=== PATIENT | male | born 1980 | race Caucasian/White ===

== ENCOUNTER 2019-07-13 15:57 | Emergency (ER) | payer MEDICAID, OTHER ==
[~2019-07-13] VITALS: Ht 180 cm; Wt 68.0 kg
[2019-07-13] MEDS ORDERED: NS IV 1000 ML 1,000 ML IV SCH (17:30)
[2019-07-13] MEDS ORDERED: RT-ALBUTEROL/IPRATROPIUM 3 ML (DUONEB) VIAL INH ONE (17:30)
--- NOTE | 2019-07-13 17:30 | ED Cough/URI ---
General Chief Complaint: Cough/Cold/Flu Symptoms Stated Complaint: COUGH / CONGESTION / BACK PAIN Nursing Triage Note: THE PT IS AMBULATORY TO THE ROOM WITHOUT DIFFICULTY. NO DISTRESS IS SEEN ON ARRIVAL. LOC IS NORMAL FOR THE PT. THE PT C/O OF COUGH AND CHEST CONGESTION. Sepsis Screen: No Definite Risk Source: patient Exam Limitations: no limitations History of Present Illness Date Seen by Provider: Jul 13, 2019 Time Seen by Provider: 17:29 Initial Comments Cough congestion and back pain for a couple of days. Type I diabetic wearing an insulin pump. Timing/Duration: week, getting worse Severity/Quality: dry cough Prior Episodes/Possible Cause: occasional episodes Modifying Factors: Improves With Coughing Associated Symptoms: denies symptoms Allergies and Home Medications Allergies Coded Allergies: No Known Drug Allergies (Unverified , 07/13/19) Patient Home Medication List Home Medication List Reviewed: Yes Review of Systems Review of Systems Constitutional: see HPI EENTM: see HPI Respiratory: see HPI, cough Genitourinary: no symptoms reported Musculoskeletal: no symptoms reported Skin: no symptoms reported Psychiatric/Neurological: No Symptoms Reported Past Orcbzus-Cqftki-Acvwsi Hx Patient Social History Recent Foreign Travel: No Contact w/Someone Who Travel: No Recent Infectious Disease Expo: No Recent Hopitalizations: No Physical Abuse: No Sexual Abuse: No Mistreated: No Fear: No Seasonal Allergies Seasonal Allergies: No Past Medical History Surgeries: No Physical Exam Vital Signs - First Documented 07/13/19 07/13/19 16:15 18:05 Temp 36.8 Pulse 117 Resp 16 B/P (MAP) 175/105 (128) Pulse Ox 99 O2 Delivery Room Air Capillary Refill : Less Than 3 Seconds Height: '" Weight: lbs. oz. kg; 20.00 BMI Method: General Appearance: WD/WN, no apparent distress Eyes: Bilateral Eye Normal Inspection, Bilateral Eye PERRL, Bilateral Eye EOMI HEENT: PERRL/EOMI, normal ENT inspection Respiratory: no respiratory distress, no accessory muscle use, other (crackles posterior left base, wheezing anterior right upper lobe) Cardiovascular: no murmur, tachycardia Gastrointestinal: normal bowel sounds, non tender, soft Neurologic/Psychiatric: alert, normal mood/affect, oriented x 3 Skin: normal color, warm/dry Progress/Results/Core Measures Suspected Sepsis Recent Fever Within 48 Hours: No Infection Criteria Present: None New/Unexplained Altered Menta: No Sepsis Screen: No Definite Risk SIRS Temperature: Pulse: 117 Respiratory Rate: 16 Laboratory Tests 07/13/19 17:22: White Blood Count 8.6 Blood Pressure 175 /105 Mean: 128 Laboratory Tests 07/13/19 17:22: Creatinine 2.84H, Platelet Count 265, Total Bilirubin 0.4 Results/Orders Lab Results Laboratory Tests Test 07/13/19 17:22 Range/Units White Blood Count 8.6 4.3-11.0 10^3/uL Red Blood Count 3.27 L 4.35-5.85 10^6/uL Hemoglobin 9.2 L 13.3-17.7 G/DL Hematocrit 28 L 40-54 % Mean Corpuscular Volume 86 80-99 FL Mean Corpuscular Hemoglobin 28 25-34 PG Mean Corpuscular Hemoglobin Concent 33 32-36 G/DL Red Cell Distribution Width 14.2 10.0-14.5 % Platelet Count 265 130-400 10^3/uL Mean Platelet Volume 9.8 7.4-10.4 FL Neutrophils (%) (Auto) 70 42-75 % Lymphocytes (%) (Auto) 20 12-44 % Monocytes (%) (Auto) 9 0-12 % Eosinophils (%) (Auto) 1 0-10 % Basophils (%) (Auto) 1 0-10 % Neutrophils # (Auto) 6.0 1.8-7.8 X 10^3 Lymphocytes # (Auto) 1.7 1.0-4.0 X 10^3 Monocytes # (Auto) 0.7 0.0-1.0 X 10^3 Eosinophils # (Auto) 0.1 0.0-0.3 10^3/uL Basophils # (Auto) 0.0 0.0-0.1 10^3/uL Sodium Level 137 135-145 MMOL/L Potassium Level 5.4 H 3.6-5.0 MMOL/L Chloride Level 109 H 98-107 MMOL/L Carbon Dioxide Level 18 L 21-32 MMOL/L Anion Gap 10 5-14 MMOL/L Blood Urea Nitrogen 31 H 7-18 MG/DL Creatinine 2.84 H 0.60-1.30 MG/DL Estimat Glomerular Filtration Rate 25 BUN/Creatinine Ratio 11 Glucose Level 48 *L 70-105 MG/DL Calcium Level 8.5 8.5-10.1 MG/DL Corrected Calcium 9.3 8.5-10.1 MG/DL Total Bilirubin 0.4 0.1-1.0 MG/DL Aspartate Amino Transf (AST/SGOT) 35 H 5-34 U/L Alanine Aminotransferase (ALT/SGPT) 40 0-55 U/L Alkaline Phosphatase 86 40-136 U/L Total Protein 5.9 L 6.4-8.2 GM/DL Albumin 3.0 L 3.2-4.5 GM/DL My Orders Orders - ROSI ROGERS GI PHYSICIAN Cbc With Automated Diff (07/13/19 17:24) Comprehensive Metabolic Panel (07/13/19 17:24) Ed Iv/Invasive Line Start (07/13/19 17:24) Chest Pa/Lat (2 View) (07/13/19 17:24) Albuterol/Ipra Inhalation Soln (Duoneb I (07/13/19 17:30) Svn Small Volume Nebulizer (07/13/19 17:24) Ns Iv 1000 Ml (Sodium Chloride 0.9%) (07/13/19 17:30) Cho 60g/M 1snack (16-2000 [place]) (07/14/19 Lunch) Rocephin 1 Gm Iv (1x Dose) (07/13/19 18:30) Medications Given in ED Current Medications Medications Dose Ordered Sig/Meng Route Start Time Stop Time Status Last Admin Dose Admin Albuterol/ Ipratropium 3 ml ONCE ONCE INH 07/13/19 17:30 07/13/19 17:31 DC 07/13/19 18:04 3 ML Vital Signs/I&O 07/13/19 07/13/19 16:15 18:05 Temp 36.8 Pulse 117 Resp 16 B/P (MAP) 175/105 (128) Pulse Ox 99 O2 Delivery Room Air Capillary Refill : Less Than 3 Seconds Blood Pressure Mean: 128 POS Departure Impression Primary Impression: Pneumonia Qualified Codes: J18.1 - Lobar pneumonia, unspecified organism Disposition: HOME, SELF-CARE Condition: Stable Departure-Patient Inst. Decision time for Depature: 18:26 Referrals: [facility] (PCP/Family) Primary Care Physician Patient Instructions: Pneumonia, Adult (DC) Add. Discharge Instructions: 1. Antibiotics as directed 2. Return to ER for any concerns 3. All discharge instructions reviewed with patient and/or family. Voiced und erstanding. Scripts Albuterol Sulfate (PROAIR HFA) 1 Puff Puff 2 PUFF IH Q4H PRN for WEAKNESS, #1 PUFF 1 PUFF = 90 MCG Prov: ROSI ROGERS APRN 07/13/19 Azithromycin (Azithromycin) 250 Mg Tablet 250 MG PO UD, #6 TAB TAKE 2 TABLETS ON DAY ONE THEN TAKE 1 TABLET DAILY FOR FOUR MORE DAYS Prov: ROSI ROGERS APRN 07/13/19 Amoxicillin/Potassium Clav (Augmentin 875-125 Tablet) 1 Each Tablet 1 EACH PO BID, #14 TAB 0 Refills Prov: ROSI ROGERS APRN 07/13/19 ROSI ROGERS APRN Jul 13, 2019 17:30 POS
[2019-07-13 17:31] LABS: BASOPHILS % (AUTO) 1 % (0-10); EOSINOPHILS # (AUTO) 0.1 10^3/uL (0.0-0.3); EOSINOPHILS % (AUTO) 1 % (0-10); HEMATOCRIT 28 % (40-54); HEMOGLOBIN 9.2 G/DL (13.3-17.7); LYMPHOCYTES # (AUTO) 1.7 X 10^3 (1.0-4.0); LYMPHOCYTES % (AUTO) 20 % (12-44); MEAN CORPUSCULAR HEMOGLOBIN 28 PG (25-34); MEAN CORPUSCULAR HGB CONC 33 G/DL (32-36); MEAN CORPUSCULAR VOLUME 86 FL (80-99); MEAN PLATELET VOLUME 9.8 FL (7.4-10.4); MONOCYTES # (AUTO) 0.7 X 10^3 (0.0-1.0); MONOCYTES % (AUTO) 9 % (0-12); NEUTROPHILS % (AUTO) 70 % (42-75); PLATELET COUNT 265 10^3/uL (130-400); RED CELL DISTRIBUTION WIDTH 14.2 % (10.0-14.5); WHITE BLOOD COUNT 8.6 10^3/uL (4.3-11.0)
[2019-07-13 17:48] LABS: BILIRUBIN,TOTAL 0.4 MG/DL (0.1-1.0); CALCIUM 8.5 MG/DL (8.5-10.1); CREATININE SERUM 2.84 MG/DL (0.60-1.30); POTASSIUM 5.4 MMOL/L (3.6-5.0); TOTAL PROTEIN 5.9 GM/DL (6.4-8.2)
--- NOTE | 2019-07-13 18:20 | Diagnostic Imaging Report ---
INDICATION: Cough and congestion. PA and lateral chest. Heart size and pulmonary vascularity are normal. Lungs are clear. There are no effusions or pneumothoraces. IMPRESSION: Negative chest. Dictated by: Dictated on workstation # [id number]
[2019-07-13] MEDS ORDERED: AMOX-358 PO (18:27)
[2019-07-13] MEDS ORDERED: AZIT250T12 PO (18:27)
[2019-07-13] MEDS ORDERED: RT-ALBUINH IH (18:27)
[2019-07-13] MEDS ORDERED: cefTRIAXone FOR IV USE 1,000 MG in WATER (STERILE) FOR INJECTION 10 ML IV ONE (18:30)
[2019-07-13] MEDS ORDERED: meTOprolol TARTRATE 25 MG (LOPRESSOR) TABLET PO ONE (20:15)
[2019-07-13 20:20] VITALS: BP 175/110
--- NOTE | 2019-07-13 20:21 | NUR ---
[address] IS INFORMED.
--- OUTSIDE RECORDS SUMMARY | 2019-08-08 00:25 | XMS REPORT ---
Author Author Jose LLOYD Organization [facility] Address [address] [place] [address] Care Team Providers Care Hydraulic Barker Operator Name Role Phone ISREAL LLOYD Unavailable PROBLEMS Type Condition ICD9-CM Code QOS56-AZ Code Onset Dates Condition S tatus SNOMED Code Problem High risk sexual behavior Z72.51 Acti ve 526708811 Problem Tinea versicolor B36.0 Active 564 92119 Problem Other specified diabetes mellitus without complications E13.9 Active 521459503 Problem Erectile dysfunction, unspecified erectile dysfunction typ e N52.9 Active 305407490 Problem Hyperlipidemia, unspecified hyperlipidemia type E7 8.5 Active 69942528 ALLERGIES No Information ENCOUNTERS Encounter Location Date Diagnosis [facility] [id number] [place] [phone] Oct, [facility] [address] [id number] [address] [place] [phone] Sep, [facility] [address] [id number] [address] [place] [phone] Aug, [facility] [id number] [place] [phone] Aug, [facility] [address] [id number] [address] [place] [phone] Jul, [facility] [address] [id number] [address] [place] [phone] Jul, [facility] [address] [id number] [address] [place] [phone] Jun, [facility] [address] [id number] [address] [place] [phone] Jun, Tinea versicolor B36.0 ; Enc ounter for immunization Z23 ; Other specified diabetes mellitus without complications E13.9 and High risk sexual behavior Z72.51 [facility] [address] [id number] [address] [place] [phone] May, [facility] [address] [id number] [address] [place] [phone] Apr, [facility] [address] [id number] [address] [place] [phone] Apr, [facility] [address] [id number] [address] [place] [phone] Apr, [facility] [address] [id number] [address] [place] [phone] Apr, [facility] [address] [id number] [address] [place] [phone] Mar, [facility] [address] [id number] [address] [place] [phone] Mar, [facility] [address] [id number] [address] [place] [phone] Mar, Tinea versicolor B36.0 ; Oth er specified diabetes mellitus without complications E13.9 and Acute pain of right shoulder M25.511 [facility] [address] [id number] [address] [place] [phone] Mar, [facility] [address] [id number] [address] [place] [phone] Mar, [facility] [address] [id number] [address] [place] [phone] Feb, [facility] [address] [id number] [address] [place] [phone] Feb, [facility] [address] [id number] [address] [place] [phone] Feb, [facility] [address] [id number] [address] [place] [phone] Feb, [facility] [address] [facility] [id number] [address] [place] [phone] Feb, [facility] [address] [facility] [id number] [address] [place] [phone] Jan, Other specified diabetes myrna litus without complications E13.9 ; Erectile dysfunction, unspecified erectile dysfunction type N52.9 ; Hyperlipidemia, unspecified hyperlipidemia type E78.5 ; Tinea versicolor B36.0 and High risk sexual behavior Z72.51 [facility] [address] [facility] [id number] [address] [place] [phone] Jan, IMMUNIZATIONS No Known Immunizations SOCIAL HISTORY Never Assessed REASON FOR VISIT [employer] Delivery date PLAN OF CARE VITAL SIGNS MEDICATIONS Unknown Medications RESULTS No Results PROCEDURES No Known procedures INSTRUCTIONS MEDICATIONS ADMINISTERED No Known Medications MEDICAL (GENERAL) HISTORY Type Description Date Medical History diabetes mellitus Medical History hyperlipidemia Medical History erectile dysfunction Medical History anxiety attacks Medical History depression Surgical History tonsillectomy and adenoidectomy 1990 Surgical History wisdom teeth extraction Surgical History Lumpectomy on Tongue Surgical History mole removal -back Hospitalization History Flu- Hospitalized at [facility] in [place], [place]
--- OUTSIDE RECORDS SUMMARY | 2019-08-08 00:25 | XMS REPORT ---
Author Author Jose LLOYD Organization [facility] Address [address] [place] [address] Care Team Providers Care Aircraft Armament Mechanic Name Role Phone ISRAEL LLOYD Unavailable PROBLEMS Type Condition ICD9-CM Code MFA62-EI Code Onset Dates Condition S tatus SNOMED Code Problem High risk sexual behavior Z72.51 Acti ve 017248394 Problem Tinea versicolor B36.0 Active 564 48739 Problem Other specified diabetes mellitus without complications E13.9 Active 121705058 Problem Erectile dysfunction, unspecified erectile dysfunction typ e N52.9 Active 691423408 Problem Hyperlipidemia, unspecified hyperlipidemia type E7 8.5 Active 72602214 ALLERGIES No Information ENCOUNTERS Encounter Location Date Diagnosis [facility] [address] [id number] [address] [place] [phone] Oct, [facility] [address] [id number] [address] [place] [phone] Sep, [facility] [address] [id number] [address] [place] [phone] Aug, [facility] [address] [place] [phone] Aug, [facility] [address] [id number] [address] [place] [phone] Jul, [facility] [address] [id number] [address] [place] [phone] Jul, [facility] [address] [id number] [address] [place] [phone] Jun, [facility] [address] [id number] [address] [place] [phone] Jun, Tinea versicolor B36.0 ; Enc ounter for immunization Z23 ; Other specified diabetes mellitus without complications E13.9 and High risk sexual behavior Z72.51 [facility] [address] [id number] [address] [place] [phone] May, [facility] [address] [id number] [address] [place] [phone] Apr, [facility] [address] [id number] [address] [place] [phone] Apr, [facility] [address] [id number] [address] [place] [phone] Apr, [facility] [address] [id number] [address] [place] [phone] Apr, [facility] [address] [id number] [address] [place] [phone] Mar, [facility] [address] [id number] [address] [place] [phone] Mar, [facility] [address] [id number] [address] [place] [phone] Mar, Tinea versicolor B36.0 ; Oth er specified diabetes mellitus without complications E13.9 and Acute pain of right shoulder M25.511 [facility] [address] [id number] [address] [place] [phone] Mar, [facility] [address] [id number] [address] [place] [phone] Mar, [facility] [address] [id number] [address] [place] [phone] Feb, [facility] [address] [id number] [address] [place] [phone] Feb, [facility] [address] [id number] [address] [place] [phone] Feb, [facility] [address] [id number] [address] [place] [phone] Feb, [facility] [address] [facility] [id number] [address] [place] [phone] Feb, [facility] [address] [facility] [id number] [address] [place] [phone] Jan, Other specified diabetes myrna litus without complications E13.9 ; Erectile dysfunction, unspecified erectile dysfunction type N52.9 ; Hyperlipidemia, unspecified hyperlipidemia type E78.5 ; Tinea versicolor B36.0 and High risk sexual behavior Z72.51 [facility] [address] [facility] [id number] [address] [place] [phone] Jan, IMMUNIZATIONS No Known Immunizations SOCIAL HISTORY Never Assessed REASON FOR VISIT eye exam PLAN OF CARE VITAL SIGNS MEDICATIONS Unknown [...] removal -back Hospitalization History Flu- Hospitalized at [facility] in [place], [place]
--- OUTSIDE RECORDS SUMMARY | 2019-08-08 00:25 | XMS REPORT ---
Author Author Jose LLOYD Organization [facility] Address [address] [place] [address] Care Team Providers Care Self Sealing Fuel Tank Builder Name Role Phone ISRAEL LLOYD Unavailable PROBLEMS Type Condition ICD9-CM Code JNM56-KF Code Onset Dates Condition S tatus SNOMED Code Problem High risk sexual behavior Z72.51 Acti ve 917019589 Problem Tinea versicolor B36.0 Active 564 91584 Problem Other specified diabetes mellitus without complications E13.9 Active 393320768 Problem Erectile dysfunction, unspecified erectile dysfunction typ e N52.9 Active 210271042 Problem Hyperlipidemia, unspecified hyperlipidemia type E7 8.5 Active 31973678 ALLERGIES No Information ENCOUNTERS Encounter Location Date Diagnosis [facility] [address] [id number] [address] [place] [phone] Oct, [facility] [address] [id number] [address] [place] [phone] Sep, [facility] [address] [id number] [address] [place] [phone] Aug, [facility] [address] [id number] [address] [place] [phone] Aug, [facility] [address] [id number] [address] [place] [phone] Jul, [facility] [address] [id number] [address] [place] [phone] Jul, [facility] [address] [id number] [address] [place] [phone] Jun, [facility] [address] [id number] [address] [place] [phone] Jun, Tinea versicolor B36.0 ; Enc ounter for immunization Z23 ; Other specified diabetes mellitus without complications E13.9 and High risk sexual behavior Z72.51 [facility] [address] [id number] [address] [place] [phone] May, [facility] [address] [id number] [address] [place] [phone] Apr, [facility] [address] [id number] [address] [place] [phone] Apr, [facility] [address] [id number] [address] [place] [phone] Apr, [facility] [address] [id number] [address] [place] [phone] Apr, [facility] [address] [id number] [address] [place] [phone] Mar, [facility] [address] [id number] [address] [place] [phone] Mar, [facility] [address] [id number] [address] [place] [phone] Mar, Tinea versicolor B36.0 ; Oth er specified diabetes mellitus without complications E13.9 and Acute pain of right shoulder M25.511 [facility] [address] [id number] [address] [place] [phone] Mar, [facility] [address] [id number] [address] [place] [phone] Mar, [facility] [address] [id number] [address] [place] [phone] Feb, [facility] [address] [id number] [address] [place] [phone] Feb, [facility] [address] [id number] [address] [place] [phone] Feb, [facility] [address] [id number] [address] [place] [phone] Feb, [facility] [address] [facility] [id number] [address] [place] [phone] Feb, [facility] [address] [facility] [id number] [address] [place] [phone] Jan, Other specified diabetes myrna litus without complications E13.9 ; Erectile dysfunction, unspecified erectile dysfunction type N52.9 ; Hyperlipidemia, unspecified hyperlipidemia type E78.5 ; Tinea versicolor B36.0 and High risk sexual behavior Z72.51 [facility] [address] [facility] [id number] [address] [place] [phone] Jan, IMMUNIZATIONS No Known Immunizations SOCIAL HISTORY Never Assessed REASON FOR VISIT pt requests return call PLAN OF CARE VITAL SIGNS MEDICATIONS Unknown [...] Hospitalization History Flu- Hospitalized at [facility] in [place], [place]
--- OUTSIDE RECORDS SUMMARY | 2019-08-08 00:25 | XMS REPORT ---
Author Author Jsoe LLOYD Organization [facility] Address [address] [place] [address] Care Team Providers Care Inspector Assembly Name Role Phone ISRAEL LLOYD Unavailable PROBLEMS Type Condition ICD9-CM Code [id number]-HT Code Onset Dates Condition S tatus SNOMED Code Problem High risk sexual behavior Z72.51 Acti ve 757987859 Problem Tinea versicolor B36.0 Active 564 69681 Problem Other specified diabetes mellitus without complications E13.9 Active 440614818 Problem Erectile dysfunction, unspecified erectile dysfunction typ e N52.9 Active 726772363 Problem Hyperlipidemia, unspecified hyperlipidemia type E7 8.5 Active 52215899 ALLERGIES No Information ENCOUNTERS Encounter Location Date Diagnosis [facility] [address] [id number] [address] [place] [phone] Oct, [facility] [address] [id number] [address] [place] [phone] Sep, [facility] [address] [id number] [address] [place] [phone] Aug, [facility] [address] [id number] [address] [place] [phone] Aug, [facility] [address] [id number] [address] [place] [phone] Jul, [facility] [address] [id number] [address] [place] [phone] Jul, [facility] [address] [id number] [address] [place] [phone] Jun, [facility] [address] [id number] [address] [place] [address] Jun, Tinea versicolor B36.0 ; Enc ounter for immunization Z23 ; Other specified diabetes mellitus without complications E13.9 and High risk sexual behavior Z72.51 [facility] [address] [id number] [address] [place] [phone] May, [facility] [address] [id number] [address] [place] [phone] Apr, [facility] [address] [id number] [address] [place] [phone] Apr, [facility] [address] [id number] [address] [place] [phone] Apr, [facility] [address] [id number] [address] [place] [phone] Apr, [facility] [address] [id number] [address] [place] [phone] Mar, [facility] [address] [id number] [address] [place] [phone] Mar, [facility] [address] [id number] [address] [place] [phone] Mar, Tinea versicolor B36.0 ; Oth er specified diabetes mellitus without complications E13.9 and Acute pain of right shoulder M25.511 [facility] [address] [id number] [address] [place] [address] Mar, [facility] [address] [id number] [address] [place] [phone] Mar, [facility] [address] [id number] [address] [place] [phone] Feb, [facility] [address] [id number] [address] [place] [phone] Feb, [facility] [address] [id number] [address] [place] [phone] Feb, [facility] [address] [id number] [address] [place] [phone] Feb, [facility] [address] [facility] [id number] [address] [place] [phone] Feb, [facility] [address] [facility] [id number] [address] [place] [phone] Jan, Other specified diabetes myrna litus without complications E13.9 ; Erectile dysfunction, unspecified erectile dysfunction type N52.9 ; Hyperlipidemia, unspecified hyperlipidemia type E78.5 ; Tinea versicolor B36.0 and High risk sexual behavior Z72.51 [facility] [address] [facility] [id number] [address] [place] [phone] Jan, IMMUNIZATIONS No Known Immunizations SOCIAL HISTORY Never Assessed REASON FOR VISIT Truvada rx PLAN OF CARE VITAL SIGNS MEDICATIONS Unknown [...] Hospitalization History Flu- Hospitalized at [facility] in [place], [place]
--- OUTSIDE RECORDS SUMMARY | 2019-08-08 00:25 | XMS REPORT ---
Author Author Jose LLOYD Organization [facility] Address [address] [place] [address] Care Team Providers Care Operations Research Director Name Role Phone ISRAEL LLOYD Unavailable PROBLEMS Type Condition ICD9-CM Code [id number]-RR Code Onset Dates Condition S tatus SNOMED Code Problem High risk sexual behavior Z72.51 Acti ve [id number] Problem Tinea versicolor B36.0 Active 564 51347 Problem Other specified diabetes mellitus without complications E13.9 Active 097338678 Problem Erectile dysfunction, unspecified erectile dysfunction typ e N52.9 Active 788601119 Problem Hyperlipidemia, unspecified hyperlipidemia type E7 8.5 Active 31347635 ALLERGIES No Information ENCOUNTERS Encounter Location Date Diagnosis [facility] [address] [id number] [address] [place] [phone] Oct, [facility] [address] [id number] [address] [place] [address] Sep, [facility] [address] [id number] [address] [place] [address] Aug, [facility] [address] [place] [address] Aug, [facility] [address] [place] [address] Jul, [facility] [address] [id number] [address] [place] [address] Jul, [facility] [address] [id number] [address] [place] [address] Jun, [facility] [address] [id number] [address] [place] [address] Jun, Tinea versicolor B36.0 ; Enc ounter for immunization Z23 ; Other specified diabetes mellitus without complications E13.9 and High risk sexual behavior Z72.51 [facility] [address] [id number] [address] [place] [address] May, [facility] [address] [id number] [address] [place] [address] Apr, [facility] [address] [id number] [address] [place] [address] Apr, [facility] [address] [id number] [address] [place] [phone] Apr, [facility] [address] [id number] [address] [place] [address] Apr, [facility] [address] [id number] [address] [place] [phone] Mar, [facility] [address] [id number] [address] [place] [address] Mar, [facility] [address] [id number] [address] [place] [address] Mar, Tinea versicolor B36.0 ; Oth er specified diabetes mellitus without complications E13.9 and Acute pain of right shoulder M25.511 [facility] [address] [id number] [address] [place] [address] Mar, [facility] [address] [id number] [address] [place] [address] Mar, [facility] [address] [id number] [address] [place] [address] Feb, [facility] [address] [id number] [address] [place] [address] Feb, [facility] [address] [id number] [address] [place] [address] Feb, [facility] [address] [id number] [address] [place] [address] Feb, [facility] [address] [facility] [id number] [address] [place] [address] Feb, [facility] [address] [facility] [id number] [address] [place] [address] Jan, Other specified diabetes myrna litus without complications E13.9 ; Erectile dysfunction, unspecified erectile dysfunction type N52.9 ; Hyperlipidemia, unspecified hyperlipidemia type E78.5 ; Tinea versicolor B36.0 and High risk sexual behavior Z72.51 [facility] [address] [facility] [id number] [address] [place] [address] Jan, IMMUNIZATIONS No Known Immunizations SOCIAL HISTORY Never Assessed REASON FOR VISIT PALS PLAN OF CARE VITAL SIGNS MEDICATIONS Medication Instructions Dosage Frequency Start Date End Date Duration S ana laura Quiñonez SoloStar 300 UNIT/ML Subcutaneous per sliding scale 45-50 units 90 days Active NovoLog Flexpen 100 UNIT/ML Subcutaneous per sliding scale 10-60 units per day 90 days Active RESULTS No Results PROCEDURES No Known procedures INSTRUCTIONS MEDICATIONS ADMINISTERED No Known Medications MEDICAL (GENERAL) HISTORY Type Description Date Medical History diabetes mellitus Medical History hyperlipidemia Medical History erectile dysfunction Medical History anxiety attacks Medical History depression Surgical History tonsillectomy and adenoidectomy 1990 Surgical History wisdom teeth extraction Surgical History Lumpectomy on Tongue Surgical History mole removal -back Hospitalization History Flu- Hospitalized at [facility] in [place], [place]
--- OUTSIDE RECORDS SUMMARY | 2019-08-08 00:25 | XMS REPORT ---
Author Author Jose LLOYD Organization [facility] Address [address] [place] [address] Care Team Providers Care Fire Equipment Inspector Helper Name Role Phone ISRAEL LLOYD Unavailable PROBLEMS Type Condition ICD9-CM Code NTE16-EV Code Onset Dates Condition S tatus SNOMED Code Problem High risk sexual behavior Z72.51 Acti ve 732607306 Problem Tinea versicolor B36.0 Active 564 20109 Problem Other specified diabetes mellitus without complications E13.9 Active 694911636 Problem Erectile dysfunction, unspecified erectile dysfunction typ e N52.9 Active 373915118 Problem Hyperlipidemia, unspecified hyperlipidemia type E7 8.5 Active 14700632 ALLERGIES No Information ENCOUNTERS Encounter Location Date Diagnosis [facility] [address] [id number] [address] [place] [phone] Oct, [facility] [address] [id number] [address] [place] [phone] Sep, [facility] [address] [id number] [address] [place] [phone] Aug, [facility] [address] [id number] [address] [place] [phone] Aug, [facility] [address] [id number] [address] [place] [phone] Jul, [facility] [address] [id number] [address] [place] [place] [address] Jul, [facility] [address] [id number] [address] [place] [phone] Jun, [facility] [address] [id number] [address] [place] [address] Jun, Tinea versicolor B36.0 ; Enc ounter for immunization Z23 ; Other specified diabetes mellitus without complications E13.9 and High risk sexual behavior Z72.51 [facility] [address] [id number] [address] [place] [address] May, [facility] [address] [id number] [address] [place] [place] [phone] Apr, [facility] [address] [id number] [address] [place] [place] [phone] Apr, [facility] [address] [id number] [address] [place] [place] [phone] Apr, [facility] [address] [id number] [address] [place] [place] [phone] Apr, [facility] [address] [id number] [address] [place] [phone] Mar, [facility] [address] [id number] [address] [place] [phone] Mar, [facility] [address] [id number] [address] [place] [address] Mar, Tinea versicolor B36.0 ; Oth er specified diabetes mellitus without complications E13.9 and Acute pain of right shoulder M25.511 [facility] [address] [id number] [address] [place] [address] Mar, [facility] [address] [id number] [address] [place] [address] Mar, [facility] [address] [id number] [address] [place] [phone] Feb, [facility] [address] [id number] [address] [place] [place] [phone] Feb, [facility] [address] [id number] [address] [place] [place] [phone] Feb, [facility] [address] [id number] [address] [place] [phone] Feb, [facility] [address] [facility] [id number] [address] [place] [place] [address] Feb, [facility] [address] [facility] [id number] [address] [place] [address] Jan, Other specified diabetes myrna litus without complications E13.9 ; Erectile dysfunction, unspecified erectile dysfunction type N52.9 ; Hyperlipidemia, unspecified hyperlipidemia type E78.5 ; Tinea versicolor B36.0 and High risk sexual behavior Z72.51 [facility] [address] [facility] [id number] [address] [place] [phone] Jan, IMMUNIZATIONS No Known Immunizations SOCIAL HISTORY Never Assessed REASON FOR VISIT Pt cancel DM ed PLAN OF CARE VITAL SIGNS MEDICATIONS Unknown [...] removal -back Hospitalization History Flu- Hospitalized at [facility] in [place], [place]
--- OUTSIDE RECORDS SUMMARY | 2019-08-08 00:25 | XMS REPORT ---
Author Author Jose LLOYD Organization [facility] Address [address] [place] [address] Care Team Providers Care Health Education Director Name Role Phone ISRAEL LLOYD Unavailable PROBLEMS Type Condition ICD9-CM Code [id number] Code Onset Dates Condition S tatus SNOMED Code Problem High risk sexual behavior Z72.51 Acti ve 579242199 Problem Tinea versicolor B36.0 Active 564 08508 Problem Other specified diabetes mellitus without complications E13.9 Active 396438932 Problem Erectile dysfunction, unspecified erectile dysfunction typ e N52.9 Active 718632516 Problem Hyperlipidemia, unspecified hyperlipidemia type E7 8.5 Active 45487405 ALLERGIES No Information ENCOUNTERS Encounter Location Date Diagnosis [facility] [address] [id number] [address] [place] [phone] Oct, [facility] [address] [id number] [address] [place] [phone] Sep, [facility] [address] [id number] [address] [place] [phone] Aug, [facility] [address] [place] [phone] Aug, [facility] [address] [place] [phone] Jul, [facility] [address] [id number] [address] [place] [address] Jul, [facility] [address] [id number] [address] [place] [phone] Jun, [facility] [address] [id number] [address] [place] [phone] Jun, Tinea versicolor B36.0 ; Enc ounter for immunization Z23 ; Other specified diabetes mellitus without complications E13.9 and High risk sexual behavior Z72.51 [facility] [address] [id number] [address] [place] [address] May, [facility] [address] [id number] [address] [place] [phone] Apr, [facility] [address] [id number] [address] [place] [phone] Apr, [facility] [address] [id number] [address] [place] [phone] Apr, [facility] [address] [id number] [address] [place] [phone] Apr, [facility] [address] [id number] [address] [place] [phone] Mar, [facility] [address] [id number] [address] [place] [phone] Mar, [facility] [address] [id number] [address] [place] [phone] Mar, Tinea versicolor B36.0 ; Oth er specified diabetes mellitus without complications E13.9 and Acute pain of right shoulder M25.511 [facility] [address] [id number] [address] [place] [phone] Mar, [facility] [address] [id number] [address] [place] [phone] Mar, [facility] [address] [id number] [address] [place] [phone] Feb, [facility] [address] [id number] [address] [place] [phone] Feb, [facility] [address] [id number] [address] [place] [phone] Feb, [facility] [address] [id number] [address] [place] [phone] Feb, [facility] [address] [facility] [id number] [address] [place] [phone] Feb, [facility] [address] [facility] [id number] [address] [place] [phone] Jan, Other specified diabetes myrna litus without complications E13.9 ; Erectile dysfunction, unspecified erectile dysfunction type N52.9 ; Hyperlipidemia, unspecified hyperlipidemia type E78.5 ; Tinea versicolor B36.0 and High risk sexual behavior Z72.51 [facility] [address] [facility] [id number] [address] [place] [phone] Jan, IMMUNIZATIONS No Known Immunizations SOCIAL HISTORY Never Assessed REASON FOR VISIT PALS IN-[place] PLAN OF CARE VITAL SIGNS MEDICATIONS Unknown [...] removal -back Hospitalization History Flu- Hospitalized at [facility] in [place], [place]
--- OUTSIDE RECORDS SUMMARY | 2019-08-08 00:25 | XMS REPORT ---
Author Author Jose LLOYD Organization [facility] Address [address] [place] [address] Care Team Providers Care Pouch Making Machine Operator Name Role Phone ISRAEL LLOYD Unavailable PROBLEMS Type Condition ICD9-CM Code [id number] Code Onset Dates Condition S tatus SNOMED Code Problem High risk sexual behavior Z72.51 Acti ve 593919694 Problem Tinea versicolor B36.0 Active 564 39053 Problem Other specified diabetes mellitus without complications E13.9 Active 953357871 Problem Erectile dysfunction, unspecified erectile dysfunction typ e N52.9 Active 678342842 Problem Hyperlipidemia, unspecified hyperlipidemia type E7 8.5 Active 67170525 ALLERGIES No Information ENCOUNTERS Encounter Location Date Diagnosis [facility] [address] [id number] [address] [place] [phone] Oct, [facility] [address] [id number] [address] [place] [phone] Sep, [facility] [address] [id number] [address] [place] [phone] Aug, [facility] [address] [id number] [address] [place] [phone] Aug, [facility] [address] [id number] [address] [place] [phone] Jul, [facility] [address] [id number] [address] [place] [phone] Jul, [facility] [address] [id number] [address] [place] [phone] Jun, [facility] [address] [id number] [address] [place] [address] Jun, Tinea versicolor B36.0 ; Enc ounter for immunization Z23 ; Other specified diabetes mellitus without complications E13.9 and High risk sexual behavior Z72.51 [facility] [address] [id number] [address] [place] [address] May, [facility] [address] [id number] [address] [place] [phone] Apr, [facility] [address] [id number] [address] [place] [phone] Apr, [facility] [address] [id number] [address] [place] [phone] Apr, [facility] [address] [id number] [address] [place] [phone] Apr, [facility] [address] [id number] [address] [place] [phone] Mar, [facility] [address] [id number] [address] [place] [phone] Mar, [facility] [address] [id number] [address] [place] [phone] Mar, Tinea versicolor B36.0 ; Oth er specified diabetes mellitus without complications E13.9 and Acute pain of right shoulder M25.511 [facility] [address] [id number] [address] [place] [phone] Mar, [facility] [address] [id number] [address] [place] [phone] Mar, [facility] [address] [id number] [address] [place] [phone] Feb, [facility] [address] [id number] [address] [place] [phone] Feb, [facility] [address] [id number] [address] [place] [phone] Feb, [facility] [address] [id number] [address] [place] [phone] Feb, [facility] [address] [facility] [id number] [address] [place] [phone] Feb, [facility] [address] [facility] [id number] [address] [place] [phone] Jan, Other specified diabetes myrna litus without complications E13.9 ; Erectile dysfunction, unspecified erectile dysfunction type N52.9 ; Hyperlipidemia, unspecified hyperlipidemia type E78.5 ; Tinea versicolor B36.0 and High risk sexual behavior Z72.51 [facility] [address] [facility] [id number] [address] [place] [phone] Jan, IMMUNIZATIONS No Known Immunizations SOCIAL HISTORY Never Assessed REASON FOR VISIT PALS PLAN OF CARE VITAL SIGNS MEDICATIONS Medication Instructions Dosage Frequency Start Date End Date Duration S tatus Truvada 200-300 MG Orally Once a day 1 tablet 24h Jan, 90 days Active RESULTS No Results PROCEDURES [...] removal -back Hospitalization History Flu- Hospitalized at [facility] in [place], [place]
--- OUTSIDE RECORDS SUMMARY | 2019-08-08 00:25 | XMS REPORT ---
Author Author Jose LLOYD Organization [facility] Address [address] [place] [address] Care Team Providers Care Sales Attendant Name Role Phone ISRAEL LLOYD Unavailable PROBLEMS Type Condition ICD9-CM Code RHV31-[id number] Code Onset Dates Condition S tatus SNOMED Code Problem High risk sexual behavior Z72.51 Acti ve 182110199 Problem Tinea versicolor B36.0 Active 564 03064 Problem Other specified diabetes mellitus without complications E13.9 Active 904869313 Problem Erectile dysfunction, unspecified erectile dysfunction typ e N52.9 Active 882678878 Problem Hyperlipidemia, unspecified hyperlipidemia type E7 8.5 Active [id number] ALLERGIES No Information ENCOUNTERS Encounter Location Date Diagnosis [facility] [address] [id number] [address] [place] [phone] Oct, [facility] [address] [id number] [address] [place] [address] Sep, [facility] [address] [id number] [address] [place] [phone] Aug, [facility] [address] [id number] [address] [place] [address] Aug, [facility] [address] [id number] [address] [place] [address] Jul, [facility] [address] [id number] [address] [place] [phone] Jul, [facility] [address] [id number] [address] [place] [phone] Jun, [facility] [address] [id number] [address] [place] [address] Jun, Tinea versicolor B36.0 ; Enc ounter for immunization Z23 ; Other specified diabetes mellitus without complications E13.9 and High risk sexual behavior Z72.51 [facility] [address] [id number] [address] [place] [id number] May, [facility] [address] [id number] [address] [place] [address] Apr, [facility] [address] [id number] [address] [place] [phone] Apr, [facility] [address] [id number] [address] [place] [phone] Apr, [facility] [address] [id number] [address] [place] [phone] Apr, [facility] [address] [id number] [address] [place] [phone] Mar, [facility] [address] [id number] [address] [place] [phone] Mar, [facility] [address] [id number] [address] [place] [phone] Mar, Tinea versicolor B36.0 ; Oth er specified diabetes mellitus without complications E13.9 and Acute pain of right shoulder M25.511 [facility] [address] [id number] [address] [place] [phone] Mar, [facility] [address] [id number] [address] [place] [phone] Mar, [facility] [address] [id number] [address] [place] [phone] Feb, [facility] [address] [id number] [address] [place] [phone] Feb, [facility] [address] [id number] [address] [place] [address] Feb, [facility] [address] [id number] [address] [place] [address] Feb, [facility] [address] [facility] [id number] [address] [place] [phone] Feb, [facility] [address] [facility] [id number] [address] [place] [address] Jan, Other specified diabetes myrna litus without complications E13.9 ; Erectile dysfunction, unspecified erectile dysfunction type N52.9 ; Hyperlipidemia, unspecified hyperlipidemia type E78.5 ; Tinea versicolor B36.0 and High risk sexual behavior Z72.51 [facility] [address] [facility] [id number] [address] [place] [phone] Jan, IMMUNIZATIONS No Known Immunizations SOCIAL HISTORY Never Assessed REASON FOR VISIT FYI only PLAN OF CARE VITAL SIGNS MEDICATIONS Unknown [...] Hospitalization History Flu- Hospitalized at [facility] in [place], [place]
--- OUTSIDE RECORDS SUMMARY | 2019-08-08 00:25 | XMS REPORT ---
Author Author Jose LLOYD Organization [facility] Address [address] [place] [address] Care Team Providers Care Classroom Monitor Name Role Phone ISRAEL LLOYD Unavailable PROBLEMS Type Condition ICD9-CM Code [id number] Code Onset Dates Condition S tatus SNOMED Code Problem High risk sexual behavior Z72.51 Acti ve 952232931 Problem Tinea versicolor B36.0 Active 564 78050 Problem Other specified diabetes mellitus without complications E13.9 Active 323284576 Problem Erectile dysfunction, unspecified erectile dysfunction typ e N52.9 Active 849669589 Problem Hyperlipidemia, unspecified hyperlipidemia type E7 8.5 Active [id number] ALLERGIES No Information ENCOUNTERS Encounter Location Date Diagnosis [facility] [address] [id number] [address] [place] [phone] Oct, [facility] [address] [id number] [address] [place] [phone] Sep, [facility] [address] [id number] [address] [place] [phone] Aug, [facility] [id number] [place] [phone] Aug, [facility] [address] [id number] [address] [place] [phone] Jul, [facility] [address] [id number] [address] [place] [phone] Jul, [facility] [address] [id number] [address] [place] [phone] Jun, [facility] [address] [id number] [address] [place] [phone] Jun, Tinea versicolor B36.0 ; Enc ounter for immunization Z23 ; Other specified diabetes mellitus without complications E13.9 and High risk sexual behavior Z72.51 [facility] [address] [id number] [address] [place] [phone] May, [facility] [address] [id number] [address] [place] [phone] Apr, [facility] [address] [id number] [address] [place] [phone] Apr, [facility] [address] [id number] [address] [place] [phone] Apr, [facility] [address] [id number] [address] [place] [phone] Apr, [facility] [address] [id number] [address] [place] [phone] Mar, [facility] [address] [id number] [address] [place] [phone] Mar, [facility] [address] [id number] [address] [place] [phone] Mar, Tinea versicolor B36.0 ; Oth er specified diabetes mellitus without complications E13.9 and Acute pain of right shoulder M25.511 [facility] [address] [id number] [address] [place] [phone] Mar, [facility] [address] [id number] [address] [place] [phone] Mar, [facility] [address] [id number] [address] [place] [phone] Feb, [facility] [address] [id number] [address] [place] [phone] Feb, [facility] [address] [id number] [address] [place] [phone] Feb, [facility] [address] [id number] [address] [place] [phone] Feb, [facility] [address] [facility] [id number] [address] [place] [phone] Feb, [facility] [address] [facility] [id number] [address] [place] [phone] Jan, Other specified diabetes myrna litus without complications E13.9 ; Erectile dysfunction, unspecified erectile dysfunction type N52.9 ; Hyperlipidemia, unspecified hyperlipidemia type E78.5 ; Tinea versicolor B36.0 and High risk sexual behavior Z72.51 [facility] [address] [facility] [id number] [address] [place] [phone] Jan, IMMUNIZATIONS No Known Immunizations SOCIAL HISTORY Never Assessed REASON FOR VISIT PALS IN-NovoLog PLAN OF CARE VITAL SIGNS MEDICATIONS Unknown [...] removal -back Hospitalization History Flu- Hospitalized at [facility] in [place], [place]
--- OUTSIDE RECORDS SUMMARY | 2019-08-08 00:25 | XMS REPORT ---
Author Author Jose LLOYD Organization [facility] [place] Address [address] [place] [address] Care Team Providers Care Lure Maker Name Role Phone ISRAEL LLOYD Unavailable PROBLEMS Type Condition ICD9-CM Code DRI87-GZ Code Onset Dates Condition S tatus SNOMED Code Problem High risk sexual behavior Z72.51 Acti ve 124035521 Problem Tinea versicolor B36.0 Active 564 35188 Problem Other specified diabetes mellitus without complications E13.9 Active 334125626 Problem Erectile dysfunction, unspecified erectile dysfunction typ e N52.9 Active 027501606 Problem Hyperlipidemia, unspecified hyperlipidemia type E7 8.5 Active 37759151 ALLERGIES No Information ENCOUNTERS Encounter Location Date Diagnosis [facility] [place] [address] [id number] [address] [place] [phone] Oct, [facility] [place] [address] [id number] [address] [place] [phone] Sep, [facility] [place] [address] [id number] [address] [place] [phone] Aug, [facility] [place] [address] [place] [address] Aug, [facility] [place] [address] [place] [phone] Jul, [facility] [place] [address] [id number] [address] [place] [phone] Jul, [facility] [place] [address] [id number] [address] [place] [phone] Jun, [facility] [place] [address] [id number] [address] [place] [phone] Jun, Tinea versicolor B36.0 ; Enc ounter for immunization Z23 ; Other specified diabetes mellitus without complications E13.9 and High risk sexual behavior Z72.51 [facility] [place] [address] [id number] [address] [place] [phone] May, [facility] [place] [address] [id number] [address] [place] [phone] Apr, [facility] [place] [address] [id number] [address] [place] [phone] Apr, [facility] [place] [address] [id number] [address] [place] [phone] Apr, [facility] [place] [address] [id number] [address] [place] [phone] Apr, [facility] [place] [address] [id number] [address] [place] [phone] Mar, [facility] [place] [address] [id number] [address] [place] [phone] Mar, [facility] [place] [address] [id number] [address] [place] [address] Mar, Tinea versicolor B36.0 ; Oth er specified diabetes mellitus without complications E13.9 and Acute pain of right shoulder M25.511 [facility] [place] [address] [id number] [address] [place] [phone] Mar, [facility] [place] [address] [id number] [address] [place] [phone] Mar, [facility] [place] [address] [id number] [address] [place] [phone] Feb, [facility] [place] [address] [id number] [address] [place] [phone] Feb, [facility] [place] [address] [id number] [address] [place] [phone] Feb, [facility] [place] [address] [id number] [address] [place] [phone] Feb, [facility] [place] [address] [facility] [id number] [address] [place] [phone] Feb, [facility] [place] [address] [facility] [id number] [address] [place] [phone] Jan, Other specified diabetes myrna litus without complications E13.9 ; Erectile dysfunction, unspecified erectile dysfunction type N52.9 ; Hyperlipidemia, unspecified hyperlipidemia type E78.5 ; Tinea versicolor B36.0 and High risk sexual behavior Z72.51 [facility] [place] [address] [facility] [id number] [address] [place] [phone] Jan, IMMUNIZATIONS No Known Immunizations SOCIAL HISTORY Never Assessed REASON FOR VISIT DM ed scheduled PLAN OF CARE VITAL SIGNS MEDICATIONS Unknown [...] removal -back Hospitalization History Flu- Hospitalized at [facility] in [place], [place]
--- OUTSIDE RECORDS SUMMARY | 2019-08-08 00:25 | XMS REPORT ---
Author Author Jose LLOYD Organization [facility] Address [address] [place] [address] Care Team Providers Care Brazer Helper Induction Name Role Phone ISRAEL LLOYD Unavailable PROBLEMS Type Condition ICD9-CM Code QZM06-VA Code Onset Dates Condition S tatus SNOMED Code Problem High risk sexual behavior Z72.51 Acti ve 440201308 Problem Tinea versicolor B36.0 Active 564 91121 Problem Other specified diabetes mellitus without complications E13.9 Active 954112439 Problem Erectile dysfunction, unspecified erectile dysfunction typ e N52.9 Active 403000346 Problem Hyperlipidemia, unspecified hyperlipidemia type E7 8.5 Active 32975853 ALLERGIES No Information ENCOUNTERS Encounter Location Date Diagnosis [facility] [address] [id number] [address] [place] [phone] Oct, [facility] [address] [id number] [address] [place] [phone] Sep, [facility] [address] [id number] [address] [place] [phone] Aug, [facility] [address] [place] [phone] Aug, [facility] [address] [id number] [address] [place] [phone] Jul, [facility] [address] [id number] [address] [place] [phone] Jul, [facility] [address] [id number] [address] [place] [phone] Jun, [facility] [address] [id number] [address] [place] [phone] Jun, Tinea versicolor B36.0 ; Enc ounter for immunization Z23 ; Other specified diabetes mellitus without complications E13.9 and High risk sexual behavior Z72.51 [facility] [address] [id number] [address] [place] [phone] May, [facility] [address] [id number] [address] [place] [phone] Apr, [facility] [address] [id number] [address] [place] [phone] Apr, [facility] [address] [id number] [address] [place] [phone] Apr, [facility] [address] [id number] [address] [place] [phone] Apr, [facility] [address] [id number] [address] [place] [phone] Mar, [facility] [address] [id number] [address] [place] [phone] Mar, [facility] [address] [id number] [address] [place] [phone] Mar, Tinea versicolor B36.0 ; Oth er specified diabetes mellitus without complications E13.9 and Acute pain of right shoulder M25.511 [facility] [address] [id number] [address] [place] [phone] Mar, [facility] [address] [id number] [address] [place] [id number] Mar, [facility] [address] [id number] [address] [place] [phone] Feb, [facility] [address] [id number] [address] [place] [phone] Feb, [facility] [address] [id number] [address] [place] [phone] Feb, [facility] [address] [id number] [address] [place] [phone] Feb, [facility] [address] [facility] [id number] [address] [place] [phone] Feb, [facility] [address] [facility] [id number] [address] [place] [phone] Jan, Other specified diabetes myrna litus without complications E13.9 ; Erectile dysfunction, unspecified erectile dysfunction type N52.9 ; Hyperlipidemia, unspecified hyperlipidemia type E78.5 ; Tinea versicolor B36.0 and High risk sexual behavior Z72.51 [facility] [address] [facility] [id number] [address] [place] [phone] Jan, IMMUNIZATIONS No Known Immunizations SOCIAL HISTORY [...] removal -back Hospitalization History Flu- Hospitalized at [facility] in [place], [place]
--- OUTSIDE RECORDS SUMMARY | 2019-08-08 00:25 | XMS REPORT ---
Author Author Jose LLOYD Organization [facility] Address [address] [place] [address] Care Team Providers Care Distribution Systems Superintendent Name Role Phone ISRAEL LLOYD Unavailable PROBLEMS Type Condition ICD9-CM Code CMG49-AR Code Onset Dates Condition S tatus SNOMED Code Problem High risk sexual behavior Z72.51 Acti ve 227219497 Problem Tinea versicolor B36.0 Active 564 80026 Problem Other specified diabetes mellitus without complications E13.9 Active 580934421 Problem Erectile dysfunction, unspecified erectile dysfunction typ e N52.9 Active 796414629 Problem Hyperlipidemia, unspecified hyperlipidemia type E7 8.5 Active 16451206 ALLERGIES No Information ENCOUNTERS Encounter Location Date Diagnosis [facility] [address] [id number] [address] [place] [phone] Oct, [facility] [address] [id number] [address] [place] [phone] Sep, [facility] [address] [id number] [address] [place] [phone] Aug, [facility] [address] [place] [phone] Aug, [facility] [address] [place] [phone] Jul, [facility] [address] [id number] [address] [place] [phone] Jul, [facility] [address] [id number] [address] [place] [phone] Jun, [facility] [address] [id number] [address] [place] [phone] Jun, Tinea versicolor B36.0 ; Enc ounter for immunization Z23 ; Other specified diabetes mellitus without complications E13.9 and High risk sexual behavior Z72.51 [facility] [address] [id number] [address] [place] [phone] May, [facility] [address] [id number] [address] [place] [phone] Apr, [facility] [address] [id number] [address] [place] [phone] Apr, [facility] [address] [id number] [address] [place] [phone] Apr, [facility] [address] [id number] [address] [place] [phone] Apr, [facility] [address] [id number] [address] [place] [phone] Mar, [facility] [address] [id number] [address] [place] [phone] Mar, [facility] [address] [id number] [address] [place] [phone] Mar, Tinea versicolor B36.0 ; Oth er specified diabetes mellitus without complications E13.9 and Acute pain of right shoulder M25.511 [facility] [address] [id number] [address] [place] [phone] Mar, [facility] [address] [id number] [address] [place] [phone] Mar, [facility] [address] [id number] [address] [place] [phone] Feb, [facility] [address] [id number] [address] [place] [phone] Feb, [facility] [address] [id number] [address] [place] [phone] Feb, [facility] [address] [id number] [address] [place] [phone] Feb, [facility] [address] [facility] [id number] [address] [place] [phone] Feb, [facility] [address] [facility] [id number] [address] [place] [phone] Jan, Other specified diabetes myrna litus without complications E13.9 ; Erectile dysfunction, unspecified erectile dysfunction type N52.9 ; Hyperlipidemia, unspecified hyperlipidemia type E78.5 ; Tinea versicolor B36.0 and High risk sexual behavior Z72.51 [facility] [address] [facility] [id number] [address] [place] [phone] Jan, IMMUNIZATIONS No Known Immunizations SOCIAL HISTORY Never Assessed REASON FOR VISIT PALS-Shipment PLAN OF CARE VITAL SIGNS MEDICATIONS Unknown [...] removal -back Hospitalization History Flu- Hospitalized at [facility] in [place], [place]
--- OUTSIDE RECORDS SUMMARY | 2019-08-08 00:25 | XMS REPORT ---
Author Author Jose LLOYD Organization [facility] Address [address] [place] [address] Care Team Providers Care Program Planner Name Role Phone ISRAEL LLOYD Unavailable PROBLEMS Type Condition ICD9-CM Code GRQ92-OH Code Onset Dates Condition S tatus SNOMED Code Problem High risk sexual behavior Z72.51 Acti ve 581708013 Problem Tinea versicolor B36.0 Active 564 44782 Problem Other specified diabetes mellitus without complications E13.9 Active 052959476 Problem Erectile dysfunction, unspecified erectile dysfunction typ e N52.9 Active 783014202 Problem Hyperlipidemia, unspecified hyperlipidemia type E7 8.5 Active [id number] ALLERGIES No Information ENCOUNTERS Encounter Location Date Diagnosis [facility] [address] [id number] [address] [place] [phone] Oct, [facility] [address] [id number] [address] [place] [phone] Sep, [facility] [address] [id number] [address] [place] [phone] Aug, [facility] [id number] [place] [phone] Aug, [facility] [id number] [place] [phone] Jul, [facility] [address] [id number] [address] [place] [phone] Jul, [facility] [address] [id number] [address] [place] [phone] Jun, [facility] [address] [id number] [address] [place] [phone] Jun, Tinea versicolor B36.0 ; Enc ounter for immunization Z23 ; Other specified diabetes mellitus without complications E13.9 and High risk sexual behavior Z72.51 [facility] [address] [id number] [address] [place] [phone] May, [facility] [address] [id number] [address] [place] [phone] Apr, [facility] [address] [id number] [address] [place] [phone] Apr, [facility] [address] [id number] [address] [place] [phone] Apr, [facility] [address] [id number] [address] [place] [phone] Apr, [facility] [address] [id number] [address] [place] [phone] Mar, [facility] [address] [id number] [address] [place] [phone] Mar, [facility] [address] [id number] [address] [place] [phone] Mar, Tinea versicolor B36.0 ; Oth er specified diabetes mellitus without complications E13.9 and Acute pain of right shoulder M25.511 [facility] [address] [id number] [address] [place] [phone] Mar, [facility] [address] [id number] [address] [place] [id number] Mar, [facility] [address] [id number] [address] [place] [phone] Feb, [facility] [address] [id number] [address] [place] [phone] Feb, [facility] [address] [id number] [address] [place] [phone] Feb, [facility] [address] [id number] [address] [place] [phone] Feb, [facility] [address] [facility] [id number] [address] [place] [phone] Feb, [facility] [address] [facility] [id number] [address] [place] [phone] Jan, Other specified diabetes myrna litus without complications E13.9 ; Erectile dysfunction, unspecified erectile dysfunction type N52.9 ; Hyperlipidemia, unspecified hyperlipidemia type E78.5 ; Tinea versicolor B36.0 and High risk sexual behavior Z72.51 [facility] [address] [facility] [id number] [address] [place] [phone] Jan, IMMUNIZATIONS No Known Immunizations SOCIAL HISTORY Never Assessed REASON FOR VISIT [facility] PLAN OF CARE VITAL SIGNS MEDICATIONS Unknown [...] History Flu- Hospitalized at [facility] in [place], [place]
--- OUTSIDE RECORDS SUMMARY | 2019-08-08 00:25 | XMS REPORT ---
Author Author Jose LLOYD Organization [facility] Address [address] [place] [address] Care Team Providers Care Pit Shovel Operator Name Role Phone ISRAEL LLOYD Unavailable PROBLEMS Type Condition ICD9-CM Code [id number] Code Onset Dates Condition S tatus SNOMED Code Problem High risk sexual behavior Z72.51 Acti ve 055894033 Problem Tinea versicolor B36.0 Active 564 37529 Problem Other specified diabetes mellitus without complications E13.9 Active 935563717 Problem Erectile dysfunction, unspecified erectile dysfunction typ e N52.9 Active 820074056 Problem Hyperlipidemia, unspecified hyperlipidemia type E7 8.5 Active 21635405 ALLERGIES Substance Reaction Event Type Date Status Latex Unknown Drug Allergy Jun, Active Simvastatin enlarged liver Drug Allergy Jun, Active ENCOUNTERS Encounter Location Date Diagnosis [facility] [address] [facility] [id number] [address] [place] [phone] Oct, [facility] [address] [facility] [id number] [address] [place] [phone] Sep, [facility] [address] [id number] [address] [place] [phone] Aug, [facility] [address] [id number] [address] [place] [phone] Aug, [facility] [address] [id number] [address] [place] [phone] Jul, [facility] [address] [facility] [id number] [address] [place] [phone] Jul, [facility] [address] [facility] [id number] [address] [place] [phone] Jun, [facility] [address] [id number] [address] [place] [phone] Jun, Tinea versicolor B36.0 ; Enc ounter for immunization Z23 ; Other specified diabetes mellitus without complications E13.9 and High risk sexual behavior Z72.51 [facility] [address] [id number] [address] [place] [phone] May, [facility] [address] [id number] [address] [place] [phone] Apr, [facility] [address] [id number] [address] [place] [phone] Apr, [facility] [address] [id number] [address] [place] [phone] Apr, [facility] [address] [id number] [address] [place] [phone] Apr, [facility] [address] [id number] [address] [place] [phone] Mar, [facility] [address] [id number] [address] [place] [phone] Mar, [facility] [address] [id number] [address] [place] [phone] Mar, Tinea versicolor B36.0 ; Oth er specified diabetes mellitus without complications E13.9 and Acute pain of right shoulder M25.511 [facility] [address] [id number] [address] [place] [phone] Mar, [facility] [address] [id number] [address] [place] [phone] Mar, [facility] [address] [facility] [id number] [address] [place] [phone] Feb, [facility] [address] [id number] [address] [place] [phone] Feb, [facility] [address] [facility] [id number] [address] [place] [phone] Feb, [facility] [address] [facility] [id number] [address] [place] [phone] Feb, [facility] [address] [facility] [id number] [address] [place] [phone] Feb, [facility] [address] [facility] [id number] [address] [place] [phone] Jan, Other specified diabetes myrna litus without complications E13.9 ; Erectile dysfunction, unspecified erectile dysfunction type N52.9 ; Hyperlipidemia, unspecified hyperlipidemia type E78.5 ; Tinea versicolor B36.0 and High risk sexual behavior Z72.51 [facility] [address] [facility] [id number] [address] [place] [phone] Jan, IMMUNIZATIONS Vaccine Route Administration Date Status FLUARIX QUAD (3 AND UP) 2016 IM Intramuscular Jun 28, 2017 Ad ministered SOCIAL HISTORY Never Assessed REASON FOR VISIT Diabetes, States sugars have been all over the place. They were in the 300-400 range last month but now they are staying under 200. -ABIOLA Vega PLAN OF CARE Activity Details Follow Up 6 Weeks Reason:DMT1 VITAL SIGNS Height 62.5 in 2017-06-28 Weight 120 lbs 2017-06-28 Temperature 97.8 degrees Fahrenheit 2017-06-28 Heart Rate 100 bpm 2017-06-28 Respiratory Rate 18 2017-06-28 BMI 21.60 kg/m2 2017-06-28 Blood pressure systolic 122 mmHg 2017-06-28 Blood pressure diastolic 80 mmHg 2017-06-28 MEDICATIONS Medication Instructions Dosage Frequency Start Date End Date Duration S tatus Chaseuricko SoloStar 300 UNIT/ML Subcutaneous per sliding scale 45-50 units Active NovoLog Flexpen 100 UNIT/ML Subcutaneous per sliding scale 10-60 units per day 90 days Active Probiotic - Active Terbinafine HCl 250 MG Orally Once a day 1 tablet 24h Jan, 2 017 Jul, 4 weeks Active Multi Vitamin - Orally Once a day 1 tablet 24h Active Niacin 500 MG Orally Once a day 1 tablet with food 24h Active Viagra 100 MG Orally Once a day 1 tablet as needed 24h Active Meloxicam 10 MG Orally Once a day 1 capsule 24h Active Fish Oil 1000 MG Orally Once a day 1 capsule 24h Active Truvada 200-300 MG Orally Once a day 1 tablet 24h 29 Jan, 2017 Active RESULTS Name Result Date Reference Range A1C (IN HOUSE) 2017-06-28 A1C IN HOUSE 12.6 4.3 - 5.6 % Previous A1c 14 Lot [id number] Exp date 04/2018 PROCEDURES Procedure Date Ordered Result Body Site FLUARIX QUAD (3 AND UP) 2016Jun 28, 2017 SINGLE IMMUNIZATION ADMIN Jun 28, 2017 GLYCATED HEMOGLOBIN TEST Jun 28, 2017 INSTRUCTIONS MEDICATIONS ADMINISTERED No Known Medications MEDICAL (GENERAL) HISTORY Type Description Date Medical History diabetes mellitus Medical History hyperlipidemia Medical History erectile dysfunction Medical History anxiety attacks Medical History depression Surgical History tonsillectomy and adenoidectomy 1990 Surgical History wisdom teeth extraction Surgical History Lumpectomy on Tongue Surgical History mole removal -back Hospitalization History Flu- Hospitalized at [facility] in [place], [place]
--- OUTSIDE RECORDS SUMMARY | 2019-08-08 00:25 | XMS REPORT ---
Author Author Jose LLOYD Organization [facility] Address [address] [place] [address] Care Team Providers Care Manager Urgent Care Name Role Phone ISRAEL LLOYD Unavailable PROBLEMS Type Condition ICD9-CM Code HKM33-XU Code Onset Dates Condition S tatus SNOMED Code Problem High risk sexual behavior Z72.51 Acti ve 300978062 Problem Tinea versicolor B36.0 Active 564 40119 Problem Other specified diabetes mellitus without complications E13.9 Active 593495422 Problem Erectile dysfunction, unspecified erectile dysfunction typ e N52.9 Active 070001999 Problem Hyperlipidemia, unspecified hyperlipidemia type E7 8.5 Active 44534482 ALLERGIES No Information ENCOUNTERS Encounter Location Date Diagnosis [facility] [address] [id number] [address] [place] [phone] Oct, [facility] [address] [id number] [address] [place] [phone] Sep, [facility] [address] [id number] [address] [place] [phone] Aug, [facility] [id number] [place] [phone] Aug, [facility] [id number] [place] [phone] Jul, [facility] [address] [id number] [address] [place] [phone] Jul, [facility] [address] [id number] [address] [place] [phone] Jun, [facility] [address] [id number] [address] [place] [phone] Jun, Tinea versicolor B36.0 ; Enc ounter for immunization Z23 ; Other specified diabetes mellitus without complications E13.9 and High risk sexual behavior Z72.51 [facility] [address] [id number] [address] [place] [phone] May, [facility] [address] [id number] [address] [place] [phone] Apr, [facility] [address] [id number] [address] [place] [phone] Apr, [facility] [address] [id number] [address] [place] [phone] Apr, [facility] [address] [id number] [address] [place] [phone] Apr, [facility] [address] [id number] [address] [place] [phone] Mar, [facility] [address] [id number] [address] [place] [phone] Mar, [facility] [address] [id number] [address] [place] [phone] Mar, Tinea versicolor B36.0 ; Oth er specified diabetes mellitus without complications E13.9 and Acute pain of right shoulder M25.511 [facility] [address] [id number] [address] [place] [phone] Mar, [facility] [address] [id number] [address] [place] [phone] Mar, [facility] [address] [id number] [address] [place] [phone] Feb, [facility] [address] [id number] [address] [place] [phone] Feb, [facility] [address] [id number] [address] [place] [phone] Feb, [facility] [address] [id number] [address] [place] [phone] Feb, [facility] [address] [facility] [id number] [address] [place] [phone] Feb, [facility] [address] [facility] [id number] [address] [place] [phone] Jan, Other specified diabetes myrna litus without complications E13.9 ; Erectile dysfunction, unspecified erectile dysfunction type N52.9 ; Hyperlipidemia, unspecified hyperlipidemia type E78.5 ; Tinea versicolor B36.0 and High risk sexual behavior Z72.51 [facility] [address] [facility] [id number] [address] [place] [phone] Jan, IMMUNIZATIONS No Known Immunizations SOCIAL HISTORY Never Assessed REASON FOR VISIT [facility] delivery PLAN OF CARE VITAL SIGNS MEDICATIONS Unknown [...] removal -back Hospitalization History Flu- Hospitalized at [facility] in [place], [place]
--- OUTSIDE RECORDS SUMMARY | 2019-08-08 00:25 | XMS REPORT ---
Author Author Jose LLOYD Organization [facility] Address [address] [place] [address] Care Team Providers Care Rope Laying Machine Operator Name Role Phone ISRAEL LLOYD Unavailable PROBLEMS Type Condition ICD9-CM Code FZZ70-EW Code Onset Dates Condition S tatus SNOMED Code Problem High risk sexual behavior Z72.51 Acti ve 957863423 Problem Tinea versicolor B36.0 Active 564 46484 Problem Other specified diabetes mellitus without complications E13.9 Active 148036447 Problem Erectile dysfunction, unspecified erectile dysfunction typ e N52.9 Active 890482486 Problem Hyperlipidemia, unspecified hyperlipidemia type E7 8.5 Active 81388698 ALLERGIES Substance Reaction Event Type Date Status Latex Unknown Drug Allergy Jan, Active Simvastatin enlarged liver Drug Allergy Jan, Active ENCOUNTERS Encounter Location Date Diagnosis [facility] [address] [facility] [id number] [address] [place] [phone] Oct, [facility] [address] [facility] [id number] [address] [place] [phone] Sep, [facility] [address] [id number] [address] [place] [phone] Aug, [facility] [address] [id number] [address] [place] [phone] Aug, [facility] [address] [id number] [address] [place] [phone] Jul, [facility] [address] [facility] [id number] [address] [place] [phone] Jul, [facility] [address] [facility] [id number] [address] [place] [phone] Jun, [facility] [address] [id number] [address] [place] [phone] Jun, Tinea versicolor B36.0 ; Enc ounter for immunization Z23 ; Other specified diabetes mellitus without complications E13.9 and High risk sexual behavior Z72.51 [facility] [address] [id number] [address] [place] [phone] May, [facility] [address] [id number] [address] [place] [phone] Apr, [facility] [address] [id number] [address] [place] [phone] Apr, [facility] [address] [id number] [address] [place] [phone] Apr, [facility] [address] [id number] [address] [place] [phone] Apr, [facility] [address] [id number] [address] [place] [phone] Mar, [facility] [address] [id number] [address] [place] [phone] Mar, [facility] [address] [id number] [address] [place] [phone] Mar, Tinea versicolor B36.0 ; Oth er specified diabetes mellitus without complications E13.9 and Acute pain of right shoulder M25.511 [facility] [place] [address] [id number] [address] [place] [phone] Mar, [facility] [address] [id number] [address] [place] [phone] Mar, [facility] [address] [facility] [id number] [address] [place] [phone] Feb, [facility] [address] [id number] [address] [place] [phone] Feb, [facility] [address] [facility] [id number] [address] [place] [phone] Feb, [facility] [address] [facility] [id number] [address] [place] [phone] Feb, [facility] [address] [facility] [id number] [address] [place] [phone] Feb, [facility] [address] [facility] [id number] [address] [place] [phone] Jan, Other specified diabetes myrna litus without complications E13.9 ; Erectile dysfunction, unspecified erectile dysfunction type N52.9 ; Hyperlipidemia, unspecified hyperlipidemia type E78.5 ; Tinea versicolor B36.0 and High risk sexual behavior Z72.51 [facility] [place] [address] [facility] [id number] [address] [place] [phone] Jan, IMMUNIZATIONS No Known Immunizations SOCIAL HISTORY Never Assessed REASON FOR VISIT PMH Obtained -CLRN PLAN OF CARE VITAL SIGNS MEDICATIONS Medication Instructions Dosage Frequency Start Date End Date Duration S tatus Meloxicam 10 MG Orally Once a day 1 capsule 24h Active Multi Vitamin - Orally Once a day 1 tablet 24h Active NovoLog Flexpen 100 UNIT/ML Subcutaneous per sliding scale Active Viagra 100 MG Orally Once a day 1 tablet as needed 24h Active Toujeo SoloStar 300 UNIT/ML Subcutaneous sliding scale per blood sugar Active Probiotic - Active Fish Oil 1000 MG Orally Once a day 1 capsule 24h Active ASA 1 tab Active ReliOn Blood Glucose Test - In Vitro 4 times a day 6h Active Niacin 500 MG Orally Once a day 1 tablet with food 24h Active RESULTS No Results PROCEDURES No Known [...] removal -back Hospitalization History Flu- Hospitalized at [facility] in [place], [place]
--- OUTSIDE RECORDS SUMMARY | 2019-08-08 00:26 | XMS REPORT | Continuity of Care Document ---
Author Organization Unknown Address Unknown Phone Unavailable Allergies Active Description Code Type Severity Reaction Onset Reported/Identified Relationship to Patient Clinical Status Yes No Known Drug Allergies [id number] Drug Allergy Unknown N/A 07/13/2019 Medications There is no data. Problems Date Dx Coded Attending Type Code Diagnosis Diagnosed By 07/19/2019 ROSI ROGERS APRN Ot E10 .9 TYPE 1 DIABETES MELLITUS WITHOUT COMPLIC 07/19/2019 ROSI ROGERS APRN Ot J18 .9 PNEUMONIA, UNSPECIFIED ORGANISM 07/19/2019 ROSI ROGERS APRN Ot R05 COUGH 07/19/2019 ROSI ROGERS APRN Ot Z79 .4 LONGTERM (CURRENT) USE OF INSULIN Procedures There is no data. Results Test Result Range Complete blood count (CBC) with automate d white blood cell (WBC) differential - 07/13/19 17:22 Blood leukocytes automated count (number/volume) 8.6 10*3/uL 4.3-11.0 Blood erythrocytes automated count (number/volume) 3.27 10*6/uL 4.35-5.85 Venous blood hemoglobin measurement (mass/volume) 9.2 g/dL 13.3-17.7 Blood hematocrit (volume fraction) 28 % 40-54 Automated erythrocyte mean corpuscular volume 86 [ foz_us] 80-99 Automated erythrocyte mean corpuscular h emoglobin (mass per erythrocyte) 28 pg 25-34 Automated erythrocyte mean corpuscular h emoglobin concentration measurement (mass/volume) 33 g/dL 32-36 Automated erythrocyte distribution width ratio 14. 2 % 10.0- 14.5 Automated blood platelet count (count/volume) 265 10*3/uL 130-400 Automated blood platelet mean volume measurement 9.8 [foz_us] 7.4-10.4 Automated blood neutrophils/100 leukocytes 70 % 42-75 Automated blood lymphocytes/100 leukocytes 20 % 12-44 Blood monocytes/100 leukocytes 9 % 0-12 Automated blood eosinophils/100 leukocytes 1 % 0-10 Automated blood basophils/100 leukocytes 1 % 0-10 Blood neutrophils automated count (number/volume) 6.0 10*3 1.8-7.8 Blood lymphocytes automated count (number/volume) 1.7 10*3 1.0-4.0 Blood monocytes automated count (number/volume) 0. 7 10*3 0.0-1.0 Automated eosinophil count 0.1 10*3/uL 0 .0-0.3 Automated blood basophil count (count/volume) 0.0 10*3/uL 0.0-0.1 Comprehensive metabolic panel - 07/13/19 17:22 Serum or plasma sodium measurement (moles/volume) 137 mmol/L 135-145 Serum or plasma potassium measurement (moles/volume) 5.4 mmol/L 3.6-5.0 Serum or plasma chloride measurement (moles/volume) 109 mmol/L 98-107 Carbon dioxide 18 mmol/L 21-32 Serum or plasma anion gap determination (moles/volume) 10 mmol/L 5-14 Serum or plasma urea nitrogen measurement (mass/volume ) 31 mg/dL 7-18 Serum or plasma creatinine measurement (mass/volume) 2.84 mg/dL 0.60-1.30 Serum or plasma urea nitrogen/creatinine mass ratio 11 NRG Serum or plasma creatinine measurement w ith calculation of estimated glomerular filtration rate 25 NRG Serum or plasma glucose measurement (mass/volume) 48 mg/dL 70-105 Serum or plasma calcium measurement (mass/volume) 8.5 mg/dL 8.5-10.1 Serum or plasma total bilirubin measurement (mass/volu me) 0.4 mg/dL 0.1-1.0 Serum or plasma alkaline phosphatase ander surement (enzymatic activity/volume) 86 U/L 40-136 Serum or plasma aspartate aminotransfera se measurement (enzymatic activity/volume) 35 U/L 5-34 Serum or plasma alanine aminotransferase measurement (enzymatic activity/volume) 40 U/L 0-55 Serum or plasma protein measurement (mass/volume) 5.9 g/dL 6.4-8.2 Serum or plasma albumin measurement (mass/volume) 3.0 g/dL 3.2-4.5 CALCIUM CORRECTED 9.3 mg/dL 8.5-10.1 Capillary blood glucose measurement by g lucometer (mass/volume) - 07/13/19 19:34 Capillary blood glucose measurement by glucometer (mas s/volume) 62 mg/dL 70-110 Capillary blood glucose measurement by g lucometer (mass/volume) - 07/13/19 20:07 Capillary blood glucose measurement by glucometer (mas s/volume) 98 mg/dL 70-110 CBC - 07/29/19 15:04 WHITE BLOOD CELL COUNT 8.8 Thousand/uL 3 .8-10.8 RED BLOOD CELL COUNT 3.11 Million/uL 4.2 0-5.80 HEMOGLOBIN 9.0 g/dL 13.2-17.1 HEMATOCRIT 27.8 % 38.5-50.0 MCV 89.4 fL 80.0-100.0 MCH 28.9 pg 27.0-33.0 MCHC 32.4 g/dL 32.0-36.0 RDW 14.3 % 11.0-15.0 PLATELET COUNT 339 Thousand/uL 140-400 MPV 10.5 fL 7.5-12.5 ABSOLUTE NEUTROPHILS 4981 cells/uL 1500- 7800 ABSOLUTE LYMPHOCYTES 2561 cells/uL 850-3 900 ABSOLUTE MONOCYTES 651 cells/uL 200-950 ABSOLUTE EOSINOPHILS 510 cells/uL 15-500 ABSOLUTE BASOPHILS 97 cells/uL 0-200 NEUTROPHILS 56.6 % NRG LYMPHOCYTES 29.1 % NRG MONOCYTES 7.4 % NRG EOSINOPHILS 5.8 % NRG BASOPHILS 1.1 % NRG Encounters ACCT No. Visit Date/Time Discharge Status Pt. Type Provider Facility Loc./Unit Complaint [id number] 08/05/2019 10:00:00 ACT Outpatient VINCE MIRANDA, [facility] [id number] 07/29/2019 13:20:00 Document Registration [id number] 07/13/2019 16:00:00 019 20:21:00 DIS Outpatient ROSI ROGERS APRN [facility] ER COUGH / CONGESTION / BA CK PAIN
--- OUTSIDE RECORDS SUMMARY | 2019-08-08 00:26 | XMS REPORT ---
Author Author Jose LLOYD Organization [facility] Address [address] [place] [address] Care Team Providers Care Longwall Shearer Operator Name Role Phone ISRAEL LLOYD Unavailable PROBLEMS Type Condition ICD9-CM Code [id number] Code Onset Dates Condition S tatus SNOMED Code Problem High risk sexual behavior Z72.51 Acti ve 113175802 Problem Tinea versicolor B36.0 Active 564 62723 Problem Other specified diabetes mellitus without complications E13.9 Active 974430711 Problem Erectile dysfunction, unspecified erectile dysfunction typ e N52.9 Active 490621132 Problem Hyperlipidemia, unspecified hyperlipidemia type E7 8.5 Active 61982789 ALLERGIES Substance Reaction Event Type Date Status Latex Unknown Drug Allergy Jan, Active Simvastatin enlarged liver Drug Allergy Jan, Active ENCOUNTERS Encounter Location Date Diagnosis [facility] [address] [id number] [address] [place] [phone] Oct, [facility] [address] [facility] [id number] [address] [place] [phone] Sep, [facility] [address] [id number] [address] [place] [phone] Aug, [facility] [address] [id number] [address] [place] [phone] Aug, [facility] [address] [id number] [address] [place] [phone] Jul, [facility] [address] [facility] [id number] [address] [place] [phone] Jul, [facility] [address] [facility] [id number] [address] [place] [phone] Jun, [facility] [address] [id number] [address] [place] [phone] Jun, Tinea versicolor B36.0 ; Enc ounter for immunization Z23 ; Other specified diabetes mellitus without complications E13.9 and High risk sexual behavior Z72.51 [facility] [address] [id number] [address] [place] [phone] May, [facility] [address] [id number] [address] [place] [phone] Apr, [facility] [address] [id number] [address] [place] [phone] Apr, [facility] [address] [id number] [address] [place] [phone] Apr, [facility] [address] [id number] [address] [place] [phone] Apr, [facility] [address] [id number] [address] [place] [phone] Mar, [facility] [address] [id number] [address] [place] [phone] Mar, [facility] [address] [id number] [address] [place] [phone] Mar, Tinea versicolor B36.0 ; Oth er specified diabetes mellitus without complications E13.9 and Acute pain of right shoulder M25.511 [facility] [address] [id number] [address] [place] [phone] Mar, [facility] [address] [id number] [address] [place] [phone] Mar, [facility] [address] [facility] [id number] [address] [place] [phone] Feb, [facility] [address] [id number] [address] [place] [phone] Feb, [facility] [address] [facility] [id number] [address] [place] [phone] Feb, [facility] [address] [facility] [id number] [address] [place] [phone] Feb, [facility] [address] [facility] [id number] [address] [place] [phone] Feb, [facility] [address] [facility] [id number] [address] [place] [phone] Jan, Other specified diabetes myrna litus without complications E13.9 ; Erectile dysfunction, unspecified erectile dysfunction type N52.9 ; Hyperlipidemia, unspecified hyperlipidemia type E78.5 ; Tinea versicolor B36.0 and High risk sexual behavior Z72.51 [facility] [address] [facility] [id number] [address] [place] [phone] Jan, IMMUNIZATIONS No Known Immunizations SOCIAL HISTORY Never Assessed REASON FOR VISIT Establish Care- Has forms he is needing filled out for assistance for his DM Med ications SFondren PLAN OF CARE Activity Details Follow Up 6 Weeks Reason:lab FU VITAL SIGNS Height 62.5 in 2017-02-09 Weight 124.2 lbs 2017-02-09 Temperature 98.0 degrees Fahrenheit 2017-02-09 Heart Rate 80 bpm 2017-02-09 Respiratory Rate 18 2017-02-09 BMI 22.35 kg/m2 2017-02-09 Blood pressure systolic 122 mmHg 2017-02-09 Blood pressure diastolic 88 mmHg 2017-02-09 MEDICATIONS Medication Instructions Dosage Frequency Start Date End Date Duration S tatus Multi Vitamin - Orally Once a day 1 tablet 24h Active Meloxicam 10 MG Orally Once a day 1 capsule 24h Active Truvada 200-300 MG Orally Once a day 1 tablet 24h Jan, 90 days Active Viagra 100 MG Orally Once a day 1 tablet as needed 24h Active Terbinafine HCl 250 MG Orally Once a day 1 tablet 24h Jan, 017 Feb, 30 days Active Tizanidine HCl 4 MG Orally Three times a day 1 capsule as needed 8h Active Toujeo SoloStar 300 UNIT/ML Subcutaneous sliding scale per blood sugar Active Probiotic - Active NovoLog Flexpen 100 UNIT/ML Subcutaneous per sliding scale Active Fish Oil 1000 MG Orally Once a day 1 capsule 24h Active Niacin 500 MG Orally Once a day 1 tablet with food 24h Active RESULTS Name Result Date Reference Range MICROALBUMIN, URINE (IN HOUSE) 2017-02-09 MICROALBUMIN Lot # [id number] Exp date 12/11/2017 Clarity Clear Color Yellow ALB 150 mg/L CRE 200 mg/dL A:C (IN HOUSE) 30-300 mg/g* Control Control Lot # Exp date A1C (IN HOUSE) 2017-02-09 A1C IN HOUSE 14.0% 4.3 - 5.6 % Previous A1c N/A Lot [id number] Exp date 10/2018 PROCEDURES Procedure Date Ordered Result Body Site MICROALBUMIN, SEMIQUANT February 09, 2017 GLYCATED HEMOGLOBIN TEST February 09, 2017 INSTRUCTIONS MEDICATIONS ADMINISTERED No Known Medications MEDICAL (GENERAL) HISTORY Type Description Date Medical History diabetes mellitus Medical History hyperlipidemia Medical History erectile dysfunction Medical History anxiety attacks Medical History depression Surgical History tonsillectomy and adenoidectomy 1990 Surgical History wisdom teeth extraction Surgical History Lumpectomy on Tongue Surgical History mole removal -back Hospitalization History Flu- Hospitalized at [facility] in [place], [place]
--- OUTSIDE RECORDS SUMMARY | 2019-08-08 00:26 | XMS REPORT ---
Author Author Jose LLOYD Organization [facility] Address [address] [place] [address] Care Team Providers Care Airport Operations Specialist Name Role Phone ISRAEL LLOYD Unavailable PROBLEMS Type Condition ICD9-CM Code [id number] Code Onset Dates Condition S tatus SNOMED Code Problem High risk sexual behavior Z72.51 Acti ve 150612700 Problem Tinea versicolor B36.0 Active 564 79770 Problem Other specified diabetes mellitus without complications E13.9 Active 581918522 Problem Erectile dysfunction, unspecified erectile dysfunction typ e N52.9 Active 273268641 Problem Hyperlipidemia, unspecified hyperlipidemia type E7 8.5 Active 29685280 ALLERGIES No Information ENCOUNTERS Encounter Location Date Diagnosis [facility] [address] [id number] [address] [place] [phone] Oct, [facility] [address] [id number] [address] [place] [phone] Sep, [facility] [address] [id number] [address] [place] [phone] Aug, [facility] [id number] [place] [phone] Aug, [facility] [id number] [place] [phone] Jul, [facility] [address] [id number] [address] [place] [phone] Jul, [facility] [address] [id number] [address] [place] [phone] Jun, [facility] [address] [id number] [address] [place] [phone] Jun, Tinea versicolor B36.0 ; Enc ounter for immunization Z23 ; Other specified diabetes mellitus without complications E13.9 and High risk sexual behavior Z72.51 [facility] [address] [id number] [address] [place] [phone] May, [facility] [address] [id number] [address] [place] [phone] Apr, [facility] [address] [id number] [address] [place] [phone] Apr, [facility] [address] [id number] [address] [place] [phone] Apr, [facility] [address] [id number] [address] [place] [phone] Apr, [facility] [address] [id number] [address] [place] [phone] Mar, [facility] [address] [id number] [address] [place] [phone] Mar, [facility] [address] [id number] [address] [place] [phone] Mar, Tinea versicolor B36.0 ; Oth er specified diabetes mellitus without complications E13.9 and Acute pain of right shoulder M25.511 [facility] [address] [id number] [address] [place] [phone] Mar, [facility] [address] [id number] [address] [place] [phone] Mar, [facility] [address] [id number] [address] [place] [phone] Feb, [facility] [address] [id number] [address] [place] [phone] Feb, [facility] [address] [id number] [address] [place] [phone] Feb, [facility] [address] [id number] [address] [place] [phone] Feb, [facility] [address] [facility] [id number] [address] [place] [phone] Feb, [facility] [address] [facility] [id number] [address] [place] [phone] Jan, Other specified diabetes myrna litus without complications E13.9 ; Erectile dysfunction, unspecified erectile dysfunction type N52.9 ; Hyperlipidemia, unspecified hyperlipidemia type E78.5 ; Tinea versicolor B36.0 and High risk sexual behavior Z72.51 [facility] [address] [facility] [id number] [address] [place] [phone] Jan, IMMUNIZATIONS No Known Immunizations SOCIAL HISTORY [...] removal -back Hospitalization History Flu- Hospitalized at [facility] in [place], [place]
== END 2019-07-13 20:21 | disposition home or self-care (01) ==
LOC: ER 16:00
DX: J18.9 Pneumonia, unspecified organism (principal); E10.9 Type 1 diabetes mellitus without complications; Z79.4 Long term (current) use of insulin
CPT/HCPCS: 36415; 71046; 80053; 82962; 85025; 94640; 96374

== ENCOUNTER 2019-08-14 20:03 | Emergency (ER) | payer SELFPAY ==
[~2019-08-14] VITALS: Ht 172 cm; Wt 73.5 kg
[~2019-08-14 20:03] MED LIST: AMOX-358 PO; AZIT250T12 PO; RT-ALBUINH IH
[2019-08-14 21:07] LABS: BILIRUBIN,URINE NEGATIVE (NEGATIVE); CLARITY,URINE CLEAR; COLOR,URINE YELLOW; GLUCOSE, URINE (UA) TRACE (NEGATIVE); KETONES,URINE NEGATIVE (NEGATIVE); LEUKOCYTE ESTERASE ,URINE NEGATIVE (NEGATIVE); NITRITE,URINE NEGATIVE (NEGATIVE); PROTEIN,URINE 3+ (NEGATIVE)
[2019-08-14] MEDS ORDERED: HYDROcodone/APAP 5 MG/325 MG (LORTAB) TAB PO ONE (21:15)
--- NOTE | 2019-08-14 21:21 | ED GU-Male ---
General Chief Complaint: Male Reproductive Stated Complaint: SWOLLEN TESTICLES Nursing Triage Note: PATIENT STATES THAT HIS TESTICLES ARE SWOLLEN AND THIS HAS BEEN GRADUALLY WORSENING OVER THE LAST WEEK AND A HALF. Source: patient Exam Limitations: no limitations History of Present Illness Date Seen by Provider: Aug 14, 2019 Time Seen by Provider: 21:01 Initial Comments Patient presents to ER by private conveyance with chief complaint of 7 days of progressively worsening swelling and pain in his scrotum. He has no painful dysuria or masturbation but he says when he masturbates he does not produce anything. He said a year ago he went to a urologist for the same problem and was told it was not significant. Today however his scrotum is swollen and tender to palpation. He's never had any surgeries on his genitourinary tract. He does not have any blood in his urine. He is able to urinate. He is not having abdominal pain. He is not on antibiotics. He had STD testing several weeks ago to get back on his medications to prevent HIV. He has not been sexually active since then but he would like STDs rechecked. He denies ever having STDs. He denies fevers or chills nausea vomiting or diarrhea. He rates the pain 7 out of 10. Allergies and Home Medications Allergies Coded Allergies: No Known Drug Allergies (Unverified , 07/13/19) Home Medications Albuterol Sulfate 1 Puff Puff, 2 PUFF IH Q4H PRN for WEAKNESS 1 PUFF = 90 MCG Prescribed by: ROSI ROGERS on 07/13/191826 Amoxicillin/Potassium Clav 1 Each Tablet, 1 EACH PO BID Prescribed by: ROSI ROGERS on 07/13/191826 Azithromycin 250 Mg Tablet, 250 MG PO UD TAKE 2 TABLETS ON DAY ONE THEN TAKE 1 TABLET DAILY FOR FOUR MORE DAYS Prescribed by: ROSI ROGERS on 07/13/191826 Doxycycline Hyclate 100 Mg Tablet, 100 MG PO BID Prescribed by: TEJAS RUTLEDGE on 08/14/19 3314 Patient Home Medication List Home Medication List Reviewed: Yes Review of Systems Review of Systems Constitutional: No chills, No fever, No malaise EENTM: No ear discharge, No ear pain Respiratory: No cough, No phlegm, No short of breath Cardiovascular: No chest pain, No edema Gastrointestinal: No abdominal pain, No nausea, No vomiting Genitourinary: see HPI; denies dysuria Musculoskeletal: No back pain, No joint pain Skin: No pruritus, No rash Psychiatric/Neurological: Denies Headache, Denies Numbness Past Saexioj-Ezfppu-Olhjgo Hx Patient Social History Alcohol Use: Denies Use Recreational Drug Use: No Smoking Status: Never a Smoker 2nd Hand Smoke Exposure: No Recent Foreign Travel: No Contact w/Someone Who Travel: No Recent Infectious Disease Expo: No Recent Hopitalizations: No Physical Abuse: No Sexual Abuse: No Mistreated: No Fear: No Seasonal Allergies Seasonal Allergies: No Past Medical History Surgeries: Yes Eye Surgery Respiratory: No Cardiac: Yes High Cholesterol, Hypertension Neurological: No Genitourinary: No Gastrointestinal: No Musculoskeletal: Yes (CHARCOT FOOT) Endocrine: Yes Diabetes, Insulin dep HEENT: No Cancer: No Psychosocial: No Integumentary: No Physical Exam Vital Signs Vital Signs - First Documented 08/14/19 20:28 Temp 37.4 Pulse 95 Resp 18 B/P (MAP) 174/135 (148) Pulse Ox 100 Capillary Refill : Less Than 3 Seconds Height, Weight, BMI Height: '" Weight: lbs. oz. kg; 24.00 BMI Method: General Appearance: WD/WN, no apparent distress HEENT: PERRL/EOMI, TMs normal, pharynx normal Neck: full range of motion, normal inspection Cardiovascular: normal peripheral pulses, regular rate, rhythm Respiratory: no respiratory distress, no accessory muscle use Gastrointestinal: normal bowel sounds, non tender, soft Male: testicular tenderness, other (scrotum is bilateral erythematous engorged and tender to palpation with mild induration of the soft tissue. No discharge from the penis.) Neurologic/Psychiatric: no motor/sensory deficits, alert, normal mood/affect Progress/Results/Core Measures Suspected Sepsis Recent Fever Within 48 Hours: No Infection Criteria Present: Suspected New Infection New/Unexplained Altered Menta: No Sepsis Screen: No Definite Risk SIRS Temperature: Pulse: 95 Respiratory Rate: 18 Blood Pressure 174 /135 Mean: 148 Results/Orders Lab Results Laboratory Tests Test 08/14/19 21:00 08/14/19 21:14 Range/Units Urine Color YELLOW Urine Clarity CLEAR Urine pH 6.0 5-9 Urine Specific [place] >=1.030 1.016-1.022 Urine Protein 3+ H NEGATIVE Urine Glucose (UA) TRACE H NEGATIVE Urine Ketones NEGATIVE NEGATIVE Urine Nitrite NEGATIVE NEGATIVE Urine Bilirubin NEGATIVE NEGATIVE Urine Urobilinogen 0.2 < = 1.0 MG/DL Urine Leukocyte Esterase NEGATIVE NEGATIVE Urine RBC (Auto) 2+ H NEGATIVE Urine RBC 25-50 H /HPF Urine WBC 0-2 /HPF Urine Crystals NONE /LPF Urine Bacteria FEW H /HPF Urine Casts PRESENT /LPF Urine Coarse Granular Casts 2-5 H /LPF Urine Waxy Casts 0-2 H /LPF Urine White Blood Cell Casts RARE H /LPF Urine Mucus NEGATIVE /LPF Urine Yeast NA H /HPF Urine Culture Indicated YES My Orders Orders - TEJAS RUTLEDGE Ua Culture If Indicated (08/14/19 20:05) Syphilis Antibody Screen (08/14/19 21:12) Neis Milo Dna Urine Test (08/14/19 21:12) Chlamydia Trachomatis Urine (08/14/19 21:12) Hydrocodone/Apap 5/325 Tablet (Lortab 5 (08/14/19 21:15) Ceftriaxone For Im Use (Rocephin For Im (08/14/19 21:30) Lidocaine 1% Inj 20 Ml (Xylocaine 1% Inj (08/14/19 21:30) Doxycycline Hyclate Tablet (Vibramycin T (08/14/19 21:22) Urine Culture (08/14/19 21:00) Medications Given in ED Current Medications Medications Dose Ordered Sig/Meng Route Start Time Stop Time Status Last Admin Dose Admin Acetaminophen/ Hydrocodone Bitart 1 tab ONCE ONCE PO 08/14/19 21:15 08/14/19 21:16 DC 08/14/19 21:20 1 TAB Vital Signs/I&O 08/14/19 20:28 Temp 37.4 Pulse 95 Resp 18 B/P (MAP) 174/135 (148) Pulse Ox 100 Capillary Refill : Less Than 3 Seconds Blood Pressure Mean: 148 Progress Note : Time: 21:20 Progress Note Hydrocodone for pain, syphilis, gonorrhea and chlamydia, urinalysis. Plan to give him 250 mg of Rocephin IM and put him out on doxycycline. Suspect orchitis or epididymitis. Since his been going on for over a week testicular torsion is less likely. We can set him up for an ultrasound outpatient tomorrow. Departure Impression Primary Impression: Orchitis and epididymitis, unspecified Disposition: 01 HOME, SELF-CARE Condition: Stable Departure-Patient Inst. Decision time for Depature: 21:45 Referrals: [facility] ([facility]Family) Primary Care Physician Patient Instructions: Epididymitis (DC) Add. Discharge Instructions: You have an infection and we have given you first doses of antibiotics tonight. Tomorrow start taking doxycycline one capsule twice a day for the next 10 days. Call the number on the outpatient order form for registration and scheduling first thing to set up an ultrasound tomorrow, 08/15/2019. Ibuprofen 800 mg every 8 hours as needed for pain. Hydrocodone 1-2 tablets every 6 hours as needed for pain. Hydrocodone will cause drowsiness and constipation. Recommend MiraLAX every day that you're using hydrocodone. Follow-up with your primary care provider for results. The lab send outs will be at least 2 days before we have results. All discharge instructions reviewed with patient and/or family. Voiced understanding. Scripts Hydrocodone Bit/Acetaminophen (Hydrocodone/Acetaminophen 5/325mg Tablet) 1 Tab Tab 1-2 EACH PO Q6H PRN for PAIN-MODERATE MDD 10 for 3 Days, #12 TAB 0 Refills Prov: TEJAS RUTLEDGE 08/14/19 Doxycycline Hyclate (Doxycycline Hyclate) 100 Mg Tablet 100 MG PO BID for 10 Days, #20 TAB 0 Refills Prov: TEJAS RUTLEDGE 08/14/19 TEJAS RUTLEDGE Aug 14, 2019 21:21
[2019-08-14] MEDS ORDERED: DOXYCYCLINE 100 MG (VIBRAMYCIN) TABLET PO STA (21:22)
[2019-08-14 21:25] LABS: RBC,URINE 25-50 /HPF
[2019-08-14 21:26] LABS: BACTERIA,URINE FEW /HPF; WAXY CASTS,URINE 0-2 /LPF; WBC,URINE 0-2 /HPF
[2019-08-14] MEDS ORDERED: LIDOCAINE 1% INJ 20 ML 20 ML VIAL INJ ONE (21:30)
[2019-08-14] MEDS ORDERED: cefTRIAXone 250 MG/ML vial (IM ONLY) IM ONE (21:30)
[2019-08-14 21:33] LABS: WHITE BLOOD CELL CASTS, URINE RARE /LPF
[2019-08-14] MEDS ORDERED: ACHD5005 PO (21:49)
[2019-08-14] MEDS ORDERED: DOXY100T2 PO (21:49)
[2019-08-14 22:09] VITALS: BP 138/77
== END 2019-08-14 22:04 | disposition home or self-care (01) ==
LOC: EDUNIT# 20:03 → ER 20:04
DX: N45.3 Epididymo-orchitis (principal); I10 Essential (primary) hypertension; E78.00 Pure hypercholesterolemia, unspecified; E11.9 Type 2 diabetes mellitus without complications
CPT/HCPCS: 36415; 81000; 86780; 87088; 87491; 87591; 96372

== ENCOUNTER → 2019-08-15 | Outpatient (CLI) | payer SELFPAY ==
[~2019-08-15] MED LIST changes: +ACHD5005 PO; +DOXY100T2 PO
--- NOTE | 2019-08-15 11:34 | Diagnostic Imaging Report ---
PROCEDURE: US Scrotum. TECHNIQUE: Multiple real-time grayscale images were obtained over the scrotum in various projections bilaterally. INDICATION: Bilateral testicular swelling. FINDINGS: Right testicle measures 4.1 x 3.3 x 3.6 cm and left testicle measures 4.6 x 3.6 x 3.5 cm. Both testes show homogeneous echotexture. No discrete testicular mass is seen. There is blood flow to both testes. Epididymides are unremarkable. There are small bilateral hydroceles. There is significant scrotal wall thickening noted without evidence of discrete fluid collection. IMPRESSION: 1. No evidence of testicular mass or vascular compromise. 2. Thickened scrotal wall without evidence of discrete fluid collection. Dictated by: Dictated on workstation # [id number]
== END ==
LOC: RAD 10:07
PROVIDERS: ATTEND Pediatrics
DX: N50.89 Other specified disorders of the male genital organs (principal)
CPT/HCPCS: 76870

== ENCOUNTER 2019-08-19 13:57 | Emergency (ER) | payer SELFPAY ==
[~2019-08-19] VITALS: Ht 172.7 cm; Wt 59.0 kg
--- NOTE | 2019-08-19 14:28 | ED GU-Male ---
General Chief Complaint: Male Reproductive Stated Complaint: SWOLLEN TESTICLES Nursing Triage Note: PT AMBULATE TO TRIAGE WITH C/O SWOLLEN TESTICLES. PT WAS SEEN IN THIS ED 08/13/19 FOR THE SAME C/O. PT STATES DR ISRAEL LLOYD CANNOT SEE HIM UNTIL 08/26. PT REPORTS DIFFICULTY URINATING AND PAIN WALKING AND SITTING. PT C/O BURNING DURING URINATION. Source: patient Exam Limitations: no limitations History of Present Illness Date Seen by Provider: Aug 19, 2019 Time Seen by Provider: 14:26 Initial Comments To ER with reports of swollen testicles. States this is been an ongoing issue for 2 weeks, he was seen here had an ultrasound of the scrotum done given antibiotics which resulted in minimal to no improvement. He denies shortness of breath chest pain or cough. He denies fevers or chills. He still has some mild dysuria. Timing/Duration: constant Severity/Quality: moderate Location: scrotal Radiation: none Prior Genitourinary Problems: none Associated Symptoms: dysuria Allergies and Home Medications Allergies Coded Allergies: No Known Drug Allergies (Unverified , 07/13/19) Home Medications Albuterol Sulfate 1 Puff Puff, 2 PUFF IH Q4H PRN for WEAKNESS 1 PUFF = 90 MCG Prescribed by: ROSI ROGERS on 07/13/191826 Amoxicillin/Potassium Clav 1 Each Tablet, 1 EACH PO BID Prescribed by: ROSI ROGERS on 07/13/191826 Azithromycin 250 Mg Tablet, 250 MG PO UD TAKE 2 TABLETS ON DAY ONE THEN TAKE 1 TABLET DAILY FOR FOUR MORE DAYS Prescribed by: ROSI ROGERS on 07/13/191826 Doxycycline Hyclate 100 Mg Tablet, 100 MG PO BID Prescribed by: TEJAS RUTLEDGE on 08/14/192148 Hydrocodone Bit/Acetaminophen 1 Tab Tab, 1-2 EACH PO Q6H PRN for PAIN-MODERATE Prescribed by: TEJAS RUTLEDGE on 08/14/192148 Patient Home Medication List Home Medication List Reviewed: Yes Review of Systems Review of Systems Constitutional: see HPI EENTM: see HPI Respiratory: no symptoms reported Cardiovascular: no symptoms reported Genitourinary: see HPI Musculoskeletal: no symptoms reported Skin: no symptoms reported Psychiatric/Neurological: No Symptoms Reported Endocrine: No Symptoms Reported Hematologic/Lymphatic: No Symptoms Reported Past Fjicjfw-Xlibft-Uvxjdc Hx Patient Social History Alcohol Use: Denies Use Recreational Drug Use: No Smoking Status: Never a Smoker 2nd Hand Smoke Exposure: No Recent Foreign Travel: No Contact w/Someone Who Travel: No Recent Infectious Disease Expo: No Recent Hopitalizations: No Physical Abuse: No Sexual Abuse: No Mistreated: No Fear: No Seasonal Allergies Seasonal Allergies: No Past Medical History Surgeries: Yes Adenoidectomy, Eye Surgery, Tonsillectomy Respiratory: No Cardiac: Yes High Cholesterol, Hypertension Neurological: No HIV/AIDS: No Genitourinary: No Gastrointestinal: No Musculoskeletal: Yes (CHARCOT FOOT) Endocrine: Yes Diabetes, Insulin dep HEENT: No Cancer: No Psychosocial: No Integumentary: No Blood Disorders: No Physical Exam Vital Signs Vital Signs - First Documented 08/19/19 14:06 Temp 36.7 Pulse 95 Resp 17 B/P (MAP) 187/120 (142) O2 Delivery Room Air Capillary Refill : Less Than 3 Seconds Height, Weight, BMI Height: '" Weight: lbs. oz. kg; 19.00 BMI Method: General Appearance: WD/WN, no apparent distress, other (pale, appears chronically ill) HEENT: PERRL/EOMI, normal ENT inspection Neck: non-tender, full range of motion Respiratory: normal breath sounds, no respiratory distress, no accessory muscle use Gastrointestinal: normal bowel sounds, non tender, soft Extremities: other (3+ pitting edema up to the knees) Neurologic/Psychiatric: alert, normal mood/affect, oriented x 3, other (insulin dependent diabetic with insulin pump in place into the skin of the right abdomen) Skin: normal color, warm/dry Progress/Results/Core Measures Suspected Sepsis Recent Fever Within 48 Hours: No Infection Criteria Present: None New/Unexplained Altered Menta: No Sepsis Screen: No Definite Risk SIRS Temperature: Pulse: 95 Respiratory Rate: 17 Laboratory Tests 08/19/19 14:39: White Blood Count 9.3 Blood Pressure 187 /120 Mean: 142 Laboratory Tests 08/19/19 14:39: Creatinine 3.03H, INR Comment 1.2, Platelet Count 323, Total Bilirubin 0.3 Results/Orders Lab Results Laboratory Tests Test 08/19/19 14:35 08/19/19 14:39 Range/Units Urine Color YELLOW Urine Clarity CLEAR Urine pH 5.0 5-9 Urine Specific [place] >=1.030 1.016-1.022 Urine Protein 3+ H NEGATIVE Urine Glucose (UA) NEGATIVE NEGATIVE Urine Ketones NEGATIVE NEGATIVE Urine Nitrite NEGATIVE NEGATIVE Urine Bilirubin NEGATIVE NEGATIVE Urine Urobilinogen 0.2 < = 1.0 MG/DL Urine Leukocyte Esterase NEGATIVE NEGATIVE Urine RBC (Auto) 2+ H NEGATIVE Urine RBC 0-2 /HPF Urine WBC RARE /HPF Urine Squamous Epithelial Cells RARE /HPF Urine Crystals NONE /LPF Urine Bacteria NEGATIVE /HPF Urine Casts NONE /LPF Urine Mucus NEGATIVE /LPF Urine Culture Indicated NO White Blood Count 9.3 4.3-11.0 10^3/uL Red Blood Count 3.49 L 4.35-5.85 10^6/uL Hemoglobin 9.7 L 13.3-17.7 G/DL Hematocrit 31 L 40-54 % Mean Corpuscular Volume 87 80-99 FL Mean Corpuscular Hemoglobin 28 25-34 PG Mean Corpuscular Hemoglobin Concent 32 32-36 G/DL Red Cell Distribution Width 16.7 H 10.0-14.5 % Platelet Count 323 130-400 10^3/uL Mean Platelet Volume 10.2 7.4-10.4 FL Neutrophils (%) (Auto) 61 42-75 % Lymphocytes (%) (Auto) 22 12-44 % Monocytes (%) (Auto) 8 0-12 % Eosinophils (%) (Auto) 9 0-10 % Basophils (%) (Auto) 1 0-10 % Neutrophils # (Auto) 5.7 1.8-7.8 X 10^3 Lymphocytes # (Auto) 2.1 1.0-4.0 X 10^3 Monocytes # (Auto) 0.7 0.0-1.0 X 10^3 Eosinophils # (Auto) 0.8 H 0.0-0.3 10^3/uL Basophils # (Auto) 0.1 0.0-0.1 10^3/uL Prothrombin Time 16.0 H 12.2-14.7 SEC INR Comment 1.2 0.8-1.4 Sodium Level 139 135-145 MMOL/L Potassium Level 5.4 H 3.6-5.0 MMOL/L Chloride Level 115 H 98-107 MMOL/L Carbon Dioxide Level 19 L 21-32 MMOL/L Anion Gap 5 5-14 MMOL/L Blood Urea Nitrogen 51 H 7-18 MG/DL Creatinine 3.03 H 0.60-1.30 MG/DL Estimat Glomerular Filtration Rate 23 BUN/Creatinine Ratio 17 Glucose Level 103 70-105 MG/DL Calcium Level 8.4 L 8.5-10.1 MG/DL Corrected Calcium 9.1 8.5-10.1 MG/DL Total Bilirubin 0.3 0.1-1.0 MG/DL Aspartate Amino Transf (AST/SGOT) 32 5-34 U/L Alanine Aminotransferase (ALT/SGPT) 38 0-55 U/L Alkaline Phosphatase 121 40-136 U/L B-Type Natriuretic Peptide 2717.8 H <100.0 PG/ML Total Protein 5.8 L 6.4-8.2 GM/DL Albumin 3.1 L 3.2-4.5 GM/DL Thyroid Stimulating Hormone (TSH) 1.53 0.35-4.94 UIU/ML Free Thyroxine 1.00 0.70-1.48 NG/DL My Orders Orders - ROSI ROEGRS APRN Thyroid Stimulating Hormone (08/19/19 14:24) Free T4 (Free Thyroxine) (08/19/19 14:24) BNP (08/19/19 14:24) Ua Culture If Indicated (08/19/19 14:24) Ed Iv/Invasive Line Start (08/19/19 14:24) Chest 1 View, Ap/Pa Only (08/19/19 14:24) Cbc With Automated Diff (08/19/19 14:24) Comprehensive Metabolic Panel (08/19/19 14:24) Protime With Inr (08/19/19 14:24) Furosemide Injection (Lasix Injection) (08/19/19 15:30) Calabrese Cath (08/19/19 15:30) Hydralazine Injection (Apresoline Inject (08/19/19 15:45) Ekg Tracing (08/19/19 15:41) Medications Given in ED Current Medications Medications Dose Ordered Sig/Meng Route Start Time Stop Time Status Last Admin Dose Admin Furosemide 40 mg ONCE ONCE IVP 08/19/19 15:30 08/19/19 15:31 DC 08/19/19 15:39 40 MG Vital Signs/I&O 08/19/19 14:06 Temp 36.7 Pulse 95 Resp 17 B/P (MAP) 187/120 (142) O2 Delivery Room Air Capillary Refill : Less Than 3 Seconds Blood Pressure Mean: 142 Diagnostic Imaging Diagonstic Imaging: Xray Comments NAME: [facility] REC#: [id number] PT STATUS: REG ER : 1980 PHYSICIAN: ROSI ROGERS APRN ADMIT DATE: 08/19/19/ER Draft Date of Exam:08/19/19 CHEST 1 VIEW, AP/PA ONLY INDICATION: Lower respiratory infection. EXAM: Portable chest at 2:53 PM FINDINGS: There is cardiomegaly. Pulmonary vascularity is normal. There is an infiltrate present at the right lung base with an effusion. IMPRESSION: Right basilar consolidation suspicious for pneumonia with a parapneumonic effusion. Dictated on workstation # [id number] Dict: 08/19/19 1459 Trans: 08/19/19 1501 [facility] [id number] Interpreted by: ALFONSO DANGELO MD Electronically signed by: Departure Communication (Admissions) With Dr. Forbes here would recommend transfer to facility with nephrology. I spoke with the hydraulic corrugating machine operator at [facility] Dr. ALDRIDGE who would recommend he go to the medical floor to the hospitalist, then spoke with Dr. Knapp from hospitalist group, agrees to admit. Impression Primary Impression: Anasarca Additional Impression: Nephrotic syndrome Disposition: ADMITTED INPATIENT Condition: Stable Transfer Transfer Reason: Exceeds level of care Time Spoke to Accepting Phy: 15:52 Departure-Patient Inst. Referrals: [facility]/K (PCP/Family) Primary Care Physician Copy Copies To 1: VINICIUS FRENCH PETER J APRN Aug 19, 2019 14:28
[2019-08-19 14:52] LABS: BASOPHILS # (AUTO) 0.1 10^3/uL (0.0-0.1); BASOPHILS % (AUTO) 1 % (0-10); EOSINOPHILS # (AUTO) 0.8 10^3/uL (0.0-0.3); EOSINOPHILS % (AUTO) 9 % (0-10); HEMATOCRIT 31 % (40-54); HEMOGLOBIN 9.7 G/DL (13.3-17.7); LYMPHOCYTES # (AUTO) 2.1 X 10^3 (1.0-4.0); LYMPHOCYTES % (AUTO) 22 % (12-44); MEAN CORPUSCULAR HEMOGLOBIN 28 PG (25-34); MEAN CORPUSCULAR HGB CONC 32 G/DL (32-36); MEAN CORPUSCULAR VOLUME 87 FL (80-99); MEAN PLATELET VOLUME 10.2 FL (7.4-10.4); MONOCYTES # (AUTO) 0.7 X 10^3 (0.0-1.0); MONOCYTES % (AUTO) 8 % (0-12); NEUTROPHILS # (AUTO) 5.7 X 10^3 (1.8-7.8); NEUTROPHILS % (AUTO) 61 % (42-75); PLATELET COUNT 323 10^3/uL (130-400); RED CELL DISTRIBUTION WIDTH 16.7 % (10.0-14.5); WHITE BLOOD COUNT 9.3 10^3/uL (4.3-11.0)
[2019-08-19 14:57] LABS: BILIRUBIN,URINE NEGATIVE (NEGATIVE); CLARITY,URINE CLEAR; COLOR,URINE YELLOW; GLUCOSE, URINE (UA) NEGATIVE (NEGATIVE); KETONES,URINE NEGATIVE (NEGATIVE); LEUKOCYTE ESTERASE ,URINE NEGATIVE (NEGATIVE); NITRITE,URINE NEGATIVE (NEGATIVE); PROTEIN,URINE 3+ (NEGATIVE)
--- NOTE | 2019-08-19 15:01 | Diagnostic Imaging Report ---
INDICATION: Lower respiratory infection. EXAM: Portable chest at 2:53 PM FINDINGS: There is cardiomegaly. Pulmonary vascularity is normal. There is an infiltrate present at the right lung base with an effusion. IMPRESSION: Right basilar consolidation suspicious for pneumonia with a parapneumonic effusion. Dictated by: Dictated on workstation # [id number]
[2019-08-19 15:05] LABS: BACTERIA,URINE NEGATIVE /HPF; RBC,URINE 0-2 /HPF; SQUAMOUS EPITHELIAL CELL,UR RARE /HPF; WBC,URINE RARE /HPF
[2019-08-19 15:08] LABS: INR 1.2 (0.8-1.4)
[2019-08-19 15:19] LABS: ALBUMIN 3.1 GM/DL (3.2-4.5); BILIRUBIN,TOTAL 0.3 MG/DL (0.1-1.0); CALCIUM 8.4 MG/DL (8.5-10.1); CREATININE SERUM 3.03 MG/DL (0.60-1.30); POTASSIUM 5.4 MMOL/L (3.6-5.0); TOTAL PROTEIN 5.8 GM/DL (6.4-8.2)
[2019-08-19] MEDS ORDERED: FUROSEMIDE 40 MG/4 ML INJ (LASIX) IVP ONE (15:30)
[2019-08-19] MEDS ORDERED: hydrALAZINE (APESOLINE) 20 MG/ML VIAL IV ONE (15:45)
--- NOTE | 2019-08-19 16:04 | NUR ---
SHIFT CAPTIAN MADE AWARE OF TRANSFR. ES SANCHEZ TO CALL WITH ROOM
--- NOTE | 2019-08-19 16:15 | NUR ---
X RAY CLOUDED TO DANIEL SLOAN
[2019-08-19 16:16] VITALS: BP 179/117
--- NOTE | 2019-08-19 16:50 | NUR ---
REPORT TO DANIEL
--- NOTE | 2019-08-19 16:55 | NUR ---
EMS CALLED FR TRANSFER
--- NOTE | 2019-08-19 17:03 | NUR ---
TOTAYSE OUT PUT FROM [facility] 500CC
[2019-08-19 17:20] VITALS: BP 175/116
--- NOTE | 2019-08-19 17:20 | NUR ---
EMS HERE FOR TRANSFER.
== END 2019-08-19 17:24 | disposition other institution (70) ==
LOC: EDUNIT# 13:57 → ER 13:58
DX: N04.9 Nephrotic syndrome with unspecified morphologic changes (principal); I10 Essential (primary) hypertension; E78.00 Pure hypercholesterolemia, unspecified; E11.9 Type 2 diabetes mellitus without complications; Z90.89 Acquired absence of other organs
CPT/HCPCS: 36415; 51702; 71045; 80053; 81000; 83880; 84439; 84443; 85025; 85610; 93005; 96374

== ENCOUNTER 2019-10-21 08:28 | Outpatient (RCR) | payer OTHER ==
[2019-10-11 12:49] VITALS: BP 167/106
[2019-10-11] MEDS: IRON SUCROSE 200 MG/10 ML (VENOFER) VIAL IV SCH (13:23)
[2019-10-14] MEDS: IRON SUCROSE 200 MG/10 ML (VENOFER) VIAL IV SCH (14:56)
[2019-10-14 15:25] VITALS: BP 180/120
[2019-10-16] MEDS: IRON SUCROSE 200 MG/10 ML (VENOFER) VIAL IV SCH (10:14)
[2019-10-16 10:55] VITALS: BP 189/122
[2019-10-18] MEDS: IRON SUCROSE 200 MG/10 ML (VENOFER) VIAL IV SCH (08:49)
[2019-10-18 08:50] VITALS: BP 160/94
[~2019-10-21] VITALS: Ht 172 cm; Wt 72.0 kg
[~2019-10-21 08:28] MED LIST changes: +ACETAMINOPHEN 500 MG TAB (TYLENOL) PO SCH; +ASPI-586 PO; +FURO-124 PO; +HYDR-3924 PO; +INSU100V16 SQ; +INSU300I SQ; +IRON SUCROSE 200 MG/10 ML (VENOFER) VIAL IV ONE; +METO100T12 PO; +MULT-633 PO; +NIAC500T24 PO; +OMG1KC PO; +diphenhydrAMINE 50 MG/ML INJ (BENADRYL) IV SCH
[2019-10-21 08:30] VITALS: BP 183/107
[2019-12-23] MEDS ORDERED: MTP100TCR PO (11:10)
[2019-12-23] MEDS ORDERED: FURO20TA4 PO (11:10)
[2019-12-24] MEDS ORDERED: FURO20TA4 PO (11:30)
[2019-12-24] MEDS ORDERED: AMLO5TAB9 PO (11:30)
[2019-12-24] MEDS ORDERED: CLIN150C17 PO (11:30)
[2019-12-24] MEDS ORDERED: SODI650T PO (11:30)
== END 2020-01-09 | disposition home or self-care (01) ==
LOC: SDC 08:28
PROVIDERS: ATTEND Internal Medicine Nephrology
DX: N18.3 Chronic kidney disease, stage 3 (moderate) (principal); D63.1 Anemia in chronic kidney disease
CPT/HCPCS: 96365

== ENCOUNTER 2019-10-23 20:13 | Emergency (ER) | payer SELFPAY ==
[~2019-10-23] VITALS: Ht 172.7 cm; Wt 72.0 kg
[~2019-10-23 20:13] MED LIST changes: -ACETAMINOPHEN 500 MG TAB (TYLENOL) PO SCH; -IRON SUCROSE 200 MG/10 ML (VENOFER) VIAL IV ONE; -diphenhydrAMINE 50 MG/ML INJ (BENADRYL) IV SCH
--- NOTE | 2019-10-23 20:31 | ED Head Injury ---
General Chief Complaint: Trauma-Non Activation Stated Complaint: FALL/ HEAD INJURY Source: patient Exam Limitations: no limitations History of Present Illness Date Seen by Provider: Oct 23, 2019 Time Seen by Provider: 20:25 Initial Comments To ER per EMS with reports of a fall. He was walking down the streets in [place] on [address], tripped over a hole in the sidewalk and fell landing face first. He has an abrasion to the forehead. He denies loss of consciousness, denies anticoagulant use. Denies neck pain recalls all events and feels okay other than the abrasion to the forehead. He has chronic hypertension/renal disease and follows with Dr. Hernandez from nephrology appointment. His tetanus is up-to-date within the past 5 years. Occurred: just prior to arrival Severity: moderate Location: frontal Method of Injury: fell Loss of Consciousness: no loss of consciousness Allergies and Home Medications Allergies Coded Allergies: Razonsk-Zvy-Lpk Reductase Inhibitor (Unverified Adverse Reaction, Unknown, 10/11/19) latex (Unverified Adverse Reaction, Unknown, 10/11/19) Home Medications Albuterol Sulfate 1 Puff Puff, 2 PUFF IH Q4H PRN for WEAKNESS 1 PUFF = 90 MCG Prescribed by: ROSI ROGERS on 07/13/191826 Aspirin 81 Mg Tablet.dr, 81 MG PO DAILY, (Reported) Furosemide 40 Mg Tablet, 40 MG PO BID, (Reported) Hydralazine HCl 50 Mg Tablet, 50 MG PO Q8H, (Reported) Insulin Aspart 100 Unit/1 Ml Susp, 0 SQ UD, (Reported) Insulin Glargine,Hum.rec.anlog 300 Unit/1 Ml Insuln.pen, 15 UNIT SQ DAILY, (Reported) Metoprolol Tartrate 100 Mg Tablet, 100 MG PO TID, (Reported) Multivitamin 1 Each Tablet, 1 EACH PO DAILY, (Reported) Niacinamide 500 Mg Tablet, 500 MG PO DAILY, (Reported) [place] 3 Polyunsat Fatty Acids 1,000 Mg Cap, 1,000 MG PO DAILY, (Reported) Patient Home Medication List Home Medication List Reviewed: Yes Review of Systems Review of Systems Constitutional: see HPI Eyes: No Symptoms Reported Cardiovascular: no symptoms reported Genitourinary: no symptoms reported Musculoskeletal: no symptoms reported Skin: no symptoms reported Psychiatric/Neurological: No Symptoms Reported, Headache (no headache, head pain is localized to the half-dollar sized area of the scalp where the abrasion is at.) Endocrine: No Symptoms Reported Hematologic/Lymphatic: No Symptoms Reported Past Yhnprpj-Evzuop-Azbmrc Hx Patient Social History 2nd Hand Smoke Exposure: No Recent Foreign Travel: No Contact w/Someone Who Travel: No Recent Hopitalizations: No Seasonal Allergies Seasonal Allergies: No Past Medical History Surgeries: Yes Adenoidectomy, Eye Surgery, Tonsillectomy Respiratory: No Cardiac: Yes High Cholesterol, Hypertension Neurological: No HIV/AIDS: No Genitourinary: No Gastrointestinal: No Musculoskeletal: Yes (CHARCOT FOOT) Endocrine: Yes Diabetes, Insulin dep HEENT: No Cancer: No Psychosocial: No Integumentary: No Blood Disorders: No Physical Exam Vital Signs Capillary Refill : Height, Weight, BMI Height: '" Weight: lbs. oz. kg; 19.00 BMI Method: General Appearance: WD/WN, no apparent distress HEENT: PERRL/EOMI, normal ENT inspection, other (half-dollar sized abrasion to the center of the forehead just inferior to the hairline. No Levine sign or raccoon eyes no depressed palpable skull fracture. No signs that would warrant CT imaging.) Neck: non-tender, full range of motion, other (rigid cervical collar removed upon arrival to ER, can flex chin to chest and turn head to either direction.) Cardiovascular: regular rate, rhythm, no murmur Respiratory: no respiratory distress, no accessory muscle use Extremities: normal range of motion, non-tender Psychiatric: alert, oriented x 3 Cra[place] Nerves: normal hearing, normal speech, PERRL Skin: normal color, warm/dry [place] Coma Score Best Eye Response: (4) Open Spontaneously Best Verbal Response: (5) Oriented Best Motor Response: (6) Obeys Commands [place] Total: 15 Departure Impression Primary Impression: Forehead abrasion Qualified Codes: S00.81XA - Abrasion of other part of head, initial encounter Additional Impression: Fall Qualified Codes: W19.XXXA - Unspecified fall, initial encounter Disposition: 01 HOME, SELF-CARE Condition: Stable Departure-Patient Inst. Decision time for Depature: 20:29 Referrals: [facility] (PCP/Family) Primary Care Physician Patient Instructions: Skin Abrasions Add. Discharge Instructions: 1. Return to ER for any loss of consciousness, severe intolerable headache, recurrent vomiting or any other concerns. At that point you would warrant a CT scan of the head. All discharge instructions reviewed with patient and/or family. Voiced understanding. ROSI ROGERS APRN Oct 23, 2019 20:31
[2019-10-23 20:33] VITALS: BP 178/113
[2019-10-23] MEDS ORDERED: ACETAMINOPHEN 500 MG TAB (TYLENOL) PO ONE (20:45)
--- OUTSIDE RECORDS SUMMARY | 2019-10-25 22:52 | XMS REPORT | Continuity of Care Document ---
Author Organization Unknown Address Unknown Phone Unavailable Allergies Active Description Code Type Severity Reaction Onset Reported/Identified Relationship to Patient Clinical Status Yes No Known Drug Allergies [id number] Drug Allergy Unknown N/A 07/13/2019 Yes latex [id number] Drug Allergy Unknown N/A 10/11/2019 Yes Dzucqke-Uub-Dyf Reductase Inhibitor [id number] Drug Allergy Unknown N/A 10/11/2019 Medications There is no data. 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 08/14/2019 ALFONSO FERNANDES MD Ot E11.9 TYPE 2 DIABETES MELLITUS WITHOUT COMPLIC 08/14/2019 ALFONSO FERNANDES MD Ot E78.00 PURE HYPERCHOLESTEROLEMIA, UNSPECIFIED 08/14/2019 ALFONSO FERNANDES MD Ot I10 ESSENTIAL (PRIMARY) HYPERTENSION 08/14/2019 ALFONSO FERNANDES MD Ot N45.1 EPIDIDYMITIS 08/14/2019 ALFONSO FERNANDES MD, Ot N45.3 EPIDIDYMO-ORCHITIS 08/19/2019 ISRAEL CLARKE MD Ot N50.89 OTHER SPECIFIED DISORDERS OF THE MALE GE 08/19/2019 ROSI ROGERS APRN Ot E11 .9 TYPE 2 DIABETES MELLITUS WITHOUT COMPLIC 08/19/2019 ROSI ROGERS APRN Ot E78.00 PURE HYPERCHOLESTEROLEMIA, UNSPECIFIED 08/19/2019 ROSI ROGERS APRN Ot I10 ESSENTIAL (PRIMARY) HYPERTENSION 08/19/2019 ROSI ROGERS APRN Ot N04 .9 NEPHROTIC SYNDROME WITH UNSPECIFIED MORP 08/19/2019 ROSI ROGERS APRN Ot R60 .1 GENERALIZED EDEMA 08/19/2019 ROSI ROGERS APRN Ot Z90.89 ACQUIRED ABSENCE OF OTHER ORGANS 08/20/2019 ISRAEL CLARKE MD Ot N50.89 OTHER SPECIFIED DISORDERS OF THE MALE GE 08/20/2019 ALFONSO FERNANDES MD, Ot E11.9 TYPE 2 DIABETES MELLITUS WITHOUT COMPLIC 08/20/2019 ALFONSO FERNANDES MD Ot E78.00 PURE HYPERCHOLESTEROLEMIA, UNSPECIFIED 08/20/2019 ALFONSO FERNANDES MD Ot I10 ESSENTIAL (PRIMARY) HYPERTENSION 08/20/2019 ALFONSO FERNANDES MD Ot N45.1 EPIDIDYMITIS 08/20/2019 ALFONSO FERNANDES MD Ot N45.3 EPIDIDYMO-ORCHITIS 08/26/2019 ROGERSROSI LASSITER APRN Ot E11 .9 TYPE 2 DIABETES MELLITUS WITHOUT COMPLIC 08/26/2019 ROSI ROGERS APRN Ot E78.00 PURE HYPERCHOLESTEROLEMIA, UNSPECIFIED 08/26/2019 ROGERSROSI LASSITER APRN Ot I10 ESSENTIAL (PRIMARY) HYPERTENSION 08/26/2019 ROSI ROGERS APRN Ot N04 .9 NEPHROTIC SYNDROME WITH UNSPECIFIED MORP 08/26/2019 ROGERSROSI LASSITER APRN Ot R60 .1 GENERALIZED EDEMA 08/26/2019 ROSI ROGERS APRN Ot Z90.89 ACQUIRED ABSENCE OF OTHER ORGANS 09/12/2019 ISRAEL CLARKE MD Ot N50.89 OTHER SPECIFIED DISORDERS OF THE MALE GE 10/11/2019 ISRAEL CLARKE MD Ot N50.89 OTHER SPECIFIED DISORDERS OF THE MALE GE 10/14/2019 ISRAEL CLARKE MD Ot N50.89 OTHER SPECIFIED DISORDERS OF THE MALE GE 10/15/2019 SANTANA BALTAZAR MD Ot D63.1 ANEMIA IN CHRONIC KIDNEY DISEASE 10/15/2019 SANTANA BALTAZAR MD Ot N18.3 CHRONIC KIDNEY DISEASE, STAGE 3 (MODERAT 10/16/2019 DELANEY MIRANDA, SANTANA Ot D63.1 ANEMIA IN CHRONIC KIDNEY DISEASE 10/16/2019 ABOKEN MIRANDA, SANTANA Ot N18.3 CHRONIC KIDNEY DISEASE, STAGE 3 (MODERAT 10/18/2019 DELANEY MIRANDA, SANTANA Ot D63.1 ANEMIA IN CHRONIC KIDNEY DISEASE 10/18/2019 ABOKEN MIRANDA, SANTANA Ot N18.3 CHRONIC KIDNEY DISEASE, STAGE 3 (MODERAT 10/21/2019 DELANEY MIRANDA, SANTANA Ot D63.1 ANEMIA IN CHRONIC KIDNEY DISEASE 10/21/2019 ABOKEN MIRANDA, SANTANA Ot N18.3 CHRONIC KIDNEY DISEASE, STAGE 3 (MODERAT 10/21/2019 DELANEY MIRANDA, SANTANA Ot D63.1 ANEMIA IN CHRONIC KIDNEY DISEASE 10/21/2019 ABOKEN MIRANDA, SANTANA Ot N18.3 CHRONIC KIDNEY DISEASE, STAGE 3 (MODERAT 10/21/2019 DELANEY MIRANDA, SANTANA Ot D63.1 ANEMIA IN CHRONIC KIDNEY DISEASE 10/21/2019 ABOKEN MIRANDA, SANTANA Ot N18.3 CHRONIC KIDNEY DISEASE, STAGE 3 (MODERAT 10/21/2019 DELANEY MIRANDA, SANTANA Ot D63.1 ANEMIA IN CHRONIC KIDNEY DISEASE 10/21/2019 DELANEY MIRANDA, SANTANA Ot N18.3 CHRONIC KIDNEY DISEASE, STAGE 3 (MODERAT Procedures There is no data. Results Test [...] by glucometer (mas s/volume) 98 mg/dL 70-110 MICROALBUMIN/CREATININE RATIO, URINE - 1 09/29/18 15:04 CREATININE, RANDOM URINE 74 mg/dL 20-32 0 MICROALBUMIN 387.2 mg/dL See Note: MICROALBUMIN/CREATININE RATIO, RANDOM URINE 5232 mcg/mg creat <30 TSH - 07/29/19 15:04 TSH 1.91 mIU/L 0.40-4.50 Bacterial urine culture - 08/14/19 21:00 Bacterial urine culture NG NRG Chlamydia DNA amp probe, urine - 0 21:14 Chlamydia DNA amp probe, urine Not Detected Not Detected Urine Neisseria gonorrhoeae DNA assay - 08/14/19 21:14 Gonorrhea amp DNA-urine Not Detected No t Detected Serum reagin antibody assay (units/volum e) by RPR - 08/14/19 21:14 Serum reagin antibody assay (units/volume) by RPR Non-Reactive Non-Reactive Complete urinalysis with reflex to cultu re - 08/19/19 14:35 Urine color determination YELLOW NRG Urine clarity determination CLEAR NR G Urine pH measurement by test strip 5.0 5-9 Specific gravity of urine by test strip >= 1.016-1.022 Urine protein assay by test strip, semi-quantitative 3+ NEGATIVE Urine glucose detection by automated test strip NE GATIVE NEGATIVE Erythrocytes detection in urine sediment by light micr oscopy 2+ NEGATIVE Urine ketones detection by automated test strip NE GATIVE NEGATIVE Urine nitrite detection by test strip NEGATIVE NEGATIVE Urine total bilirubin detection by test strip NEGA TIVE NEGATIVE Urine urobilinogen measurement by automated test strip (mass/volume) 0.2 mg/dL < = 1.0 Urine leukocyte esterase detection by dipstick NEG ATIVE NEGATIVE Automated urine sediment erythrocyte cou nt by microscopy (number/high power field) [HPF] NRG Automated urine sediment leukocyte count by microscopy (number/high power field) RARE NRG Bacteria detection in urine sediment by light microsco py NEGATIVE NRG Squamous epithelial cells detection in u rine sediment by light microscopy RARE NRG Crystals detection in urine sediment by light microsco py NONE NRG Casts detection in urine sediment by light microscopy NONE NRG Mucus detection in urine sediment by light microscopy NEGATIVE NRG Complete urinalysis with reflex to culture NO NRG Complete blood count (CBC) with automate d white blood cell (WBC) differential - 08/19/19 14:39 Blood leukocytes automated count (number/volume) 9.3 10*3/uL 4.3-11.0 Blood erythrocytes automated count (number/volume) 3.49 10*6/uL 4.35-5.85 Venous blood hemoglobin measurement (mass/volume) 9.7 g/dL 13.3-17.7 Blood hematocrit (volume fraction) 31 % 40-54 Automated erythrocyte mean corpuscular volume 87 [ foz_us] 80-99 Automated erythrocyte mean corpuscular h emoglobin (mass per erythrocyte) 28 pg 25-34 Automated erythrocyte mean corpuscular h emoglobin concentration measurement (mass/volume) 32 g/dL 32-36 Automated erythrocyte distribution width ratio 16. 7 % 10.0- 14.5 Automated blood platelet count (count/volume) 323 10*3/uL 130-400 Automated blood platelet mean volume measurement 10.2 [foz_us] 7.4-10.4 Automated blood neutrophils/100 leukocytes 61 % 42-75 Automated blood lymphocytes/100 leukocytes 22 % 12-44 Blood monocytes/100 leukocytes 8 % 0-12 Automated blood eosinophils/100 leukocytes 9 % 0-10 Automated blood basophils/100 leukocytes 1 % 0-10 Blood neutrophils automated count (number/volume) 5.7 10*3 1.8-7.8 Blood lymphocytes automated count (number/volume) 2.1 10*3 1.0-4.0 Blood monocytes automated count (number/volume) 0. 7 10*3 0.0-1.0 Automated eosinophil count 0.8 10*3/uL 0 .0-0.3 Automated blood basophil count (count/volume) 0.1 10*3/uL 0.0-0.1 PT panel in platelet poor plasma by coag ulation assay - 08/19/19 14:39 Prothrombin time (PT) in platelet poor plasma by coagu lation assay 16.0 s 12.2-14.7 INR in platelet poor plasma or blood by coagulation as say 1.2 0.8-1.4 Comprehensive metabolic panel - 08/19/19 14:39 Serum or plasma sodium measurement (moles/volume) 139 mmol/L 135-145 Serum or plasma potassium measurement (moles/volume) 5.4 mmol/L 3.6-5.0 Serum or plasma chloride measurement (moles/volume) 115 mmol/L 98-107 Carbon dioxide 19 mmol/L 21-32 Serum or plasma anion gap determination (moles/volume) 5 mmol/L 5-14 Serum or plasma urea nitrogen measurement (mass/volume ) 51 mg/dL 7-18 Serum or plasma creatinine measurement (mass/volume) 3.03 mg/dL 0.60-1.30 Serum or plasma urea nitrogen/creatinine mass ratio 17 NRG Serum or plasma creatinine measurement w ith calculation of estimated glomerular filtration rate 23 NRG Serum or plasma glucose measurement (mass/volume) 103 mg/dL 70-105 Serum or plasma calcium measurement (mass/volume) 8.4 mg/dL 8.5-10.1 Serum or plasma total bilirubin measurement (mass/volu me) 0.3 mg/dL 0.1-1.0 Serum or plasma alkaline phosphatase ander surement (enzymatic activity/volume) 121 U/L 40-136 Serum or plasma aspartate aminotransfera se measurement (enzymatic activity/volume) 32 U/L 5-34 Serum or plasma alanine aminotransferase measurement (enzymatic activity/volume) 38 U/L 0-55 Serum or plasma protein measurement (mass/volume) 5.8 g/dL 6.4-8.2 Serum or plasma albumin measurement (mass/volume) 3.1 g/dL 3.2-4.5 CALCIUM CORRECTED 9.1 mg/dL 8.5-10.1 Serum or plasma lithium measurement (mol es/volume) - 08/19/19 14:39 BNP PT 2717.8 pg/mL <100.0 THYROID STIMULATING HORMONE - 08/19/19 1 4:39 THYROID STIMULATING HORMONE 1.53 u[iU]/mL 0.35-4.94 Serum or plasma thyroxine (T4) free lara urement (mass/volume) - 08/19/19 14:39 Serum or plasma thyroxine (T4) free measurement (mass/ volume) 1.00 ng/dL 0.70-1.48 UA W/ MICROSCOPY - 08/26/19 10:12 COLOR YELLOW YELLOW APPEARANCE CLEAR CLEAR SPECIFIC GRAVITY 1.019 1.001-1.035 PH 5.5 5.0-8.0 GLUCOSE 1+ NEGATIVE BILIRUBIN NEGATIVE NEGATIVE KETONES NEGATIVE NEGATIVE OCCULT BLOOD 1+ NEGATIVE PROTEIN 3+ NEGATIVE NITRITE NEGATIVE NEGATIVE LEUKOCYTE ESTERASE NEGATIVE NEGATIVE WBC NONE SEEN /HPF < OR = 5 RBC 3-10 /HPF < OR = 2 SQUAMOUS EPITHELIAL CELLS NONE SEEN /HPF < OR = 5 BACTERIA NONE SEEN /HPF NONE SEEN HYALINE CAST 10-20 /LPF NONE SEEN RENAL PROFILE - 08/29/19 09:16 GLUCOSE 135 mg/dL 65-139 UREA NITROGEN (BUN) 49 mg/dL 7-25 CREATININE 2.80 mg/dL 0.60-1.35 eGFR NON-AFR. ROMANIAN 28 mL/min/1.73m2 > OR = 60 eGFR 32 mL/min/1.73m2 > OR = 60 BUN/CREATININE RATIO 18 (calc) 6-22 SODIUM 141 mmol/L 135-146 POTASSIUM 5.3 mmol/L 3.5-5.3 CHLORIDE 111 mmol/L 98-110 CARBON DIOXIDE 25 mmol/L 20-32 CALCIUM 8.3 mg/dL 8.6-10.3 ALBUMIN 3.0 g/dL 3.6-5.1 PHOSPHATE ( PHOSPHORUS) 4.5 mg/dL 2.5- 4.5 Encounters ACCT No. Visit Date/Time Discharge Status Pt. Type Provider Facility Loc./Unit Complaint [id number] 08/26/2019 09:00:00 08/26/2019 23:59: 59 CLS Outpatient ISRAEL CLARKE MD [facility] [id number] 08/29/2019 08:40:00 Document Registration [id number] 08/26/2019 09:00:00 Document Registration [id number] 07/29/2019 13:20:00 Document Registration [id number] 10/23/2019 20:15:00 020 20:33:00 DIS Emergency ROSI ROGERS APRN [facility] FALL/ HEAD INJURY [id number] 10/21/2019 08:28:00 23:59:59 CLS [facility] DELANEY [facility] [id number] 08/19/2019 13:58:00 17:24:00 DIS Emergency ROSI ROGERS 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
== END 2019-10-23 20:33 | disposition home or self-care (01) ==
LOC: EDUNIT# 20:13 → ER 20:15
DX: S09.90XA Unspecified injury of head, initial encounter (principal); S00.81XA Abrasion of other part of head, initial encounter; I10 Essential (primary) hypertension; E78.00 Pure hypercholesterolemia, unspecified; E11.9 Type 2 diabetes mellitus without complications; R40.2142 Coma scale, eyes open, spontaneous, at arrival to emergency department; R40.2252 Coma scale, best verbal response, oriented, at arrival to emergency department; R40.2362 Coma scale, best motor response, obeys commands, at arrival to emergency department; Z79.4 Long term (current) use of insulin; Z91.040 Latex allergy status; Z88.8 Allergy status to other drugs, medicaments and biological substances; W01.198A Fall on same level from slipping, tripping and stumbling with subsequent striking against other object, initial encounter; Y93.01 Activity, walking, marching and hiking; Y92.410 Unspecified street and highway as the place of occurrence of the external cause
CPT/HCPCS: 99283

== ENCOUNTER 2019-12-20 12:10 | Inpatient (IN) | payer OTHER ==
[~2019-12-20] VITALS: Ht 172 cm; Wt 81.1 kg
[2019-12-20 12:28] LABS: BILIRUBIN,URINE NEGATIVE (NEGATIVE); CLARITY,URINE CLEAR; COLOR,URINE YELLOW; GLUCOSE, URINE (UA) 3+ (NEGATIVE); KETONES,URINE NEGATIVE (NEGATIVE); LEUKOCYTE ESTERASE ,URINE NEGATIVE (NEGATIVE); NITRITE,URINE NEGATIVE (NEGATIVE); PROTEIN,URINE 3+ (NEGATIVE)
--- NOTE | 2019-12-20 12:34 | ED General ---
General Stated Complaint: ABNORMAL BLOOD WORK Source of Information: Patient Exam Limitations: No Limitations History of Present Illness Date Seen by Provider: December 20, 2019 Time Seen by Provider: 12:19 Initial Comments Here with report of being told to come here for abnormal labs. He had labs drawn 2 days ago which showed a blood sugar greater than 600 and potassium greater than 6. Does have history of edema, hypertension and diabetes as well as chronic renal insufficiency. Reports taking his meds as directed. Has been checking his blood sugars at home and they've been in the 250s. That concludes a few hours ago. Denies nausea, vomiting or chest pain. Is short of breath but is chronically short of breath. He is moving back to [place] in a few days. Does complain of swelling to his legs and arms and notes that he's had increased swelling of his. They arms over the last few days. Denies fever or chills. Patient further delineated his furosemide use. States that he ran out and then was represcribed at half dose. He has had increased swelling since running out of his furosemide. He is trying to get back to his normal dose of 40 mg twice a day. 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 Timing/Duration: 1 Week, Getting Worse Severity: Moderate Associated Systoms: No Chest Pain, No Cough, No Fever/Chills, No Nausea/Vomiting; Shortness of Air, Weakness Allergies and Home Medications Allergies Coded Allergies: Tbbopxs-Cxf-Iwp Reductase Inhibitor (Unverified Adverse Reaction, Unknown, 10/11/19) latex (Unverified Adverse Reaction, Unknown, 10/11/19) Home Medications Albuterol Sulfate 1 Puff Puff, 2 PUFF IH Q4H PRN for WEAKNESS 1 PUFF = 90 MCG Prescribed by: ROSI ROGERS on 07/13/19 0544 Aspirin 81 Mg Tablet.dr, 81 MG PO DAILY, (Reported) Furosemide 40 Mg Tablet, 40 MG PO BID, (Reported) Hydralazine HCl 50 Mg Tablet, 50 MG PO Q8H, (Reported) Insulin Aspart 100 Unit/1 Ml Susp, 0 SQ UD, (Reported) Insulin Glargine,Hum.rec.anlog 300 Unit/1 Ml Insuln.pen, 15 UNIT SQ DAILY, (Reported) Metoprolol Tartrate 100 Mg Tablet, 100 MG PO TID, (Reported) Multivitamin 1 Each Tablet, 1 EACH PO DAILY, (Reported) Niacinamide 500 Mg Tablet, 500 MG PO DAILY, (Reported) [place] 3 Polyunsat Fatty Acids 1,000 Mg Cap, 1,000 MG PO DAILY, (Reported) Patient Home Medication List Home Medication List Reviewed: Yes Review of Systems Review of Systems Constitutional: see HPI EENTM: no symptoms reported Respiratory: see HPI, short of breath, wheezing Cardiovascular: edema; No palpitations Gastrointestinal: No abdominal pain, No diarrhea, No nausea, No vomiting Genitourinary: no symptoms reported Musculoskeletal: No muscle pain; muscle weakness Skin: no symptoms reported Psychiatric/Neurological: See HPI All Other Systems Reviewed Negative Unless Noted: Yes Past Rmtxktb-Oiljhf-Dazbme Hx Past Med/Social Hx: Reviewed Nursing Past Med/Soc Hx Patient Social History Alcohol Use: Denies Use Recreational Drug Use: No Smoking Status: Never a Smoker 2nd Hand Smoke Exposure: No Recent Foreign Travel: No Contact w/Someone Who Travel: No Recent Hopitalizations: No Immunizations Up To Date Tetanus Booster (TDap): Less than 5yrs Seasonal Allergies Seasonal Allergies: No Past Medical History Surgeries: Yes (LEFT EYE RETINA REPAIR) Adenoidectomy, Eye Surgery, Tonsillectomy Respiratory: No Cardiac: Yes High Cholesterol, Hypertension Neurological: No HIV/AIDS: No Genitourinary: No Gastrointestinal: No Musculoskeletal: Yes (CHARCOT FOOT) Endocrine: Yes Diabetes, Insulin dep HEENT: No Cancer: No Psychosocial: No Integumentary: No Blood Disorders: No Family Medical History Reviewed Nursing Family Hx Physical Exam Vital Signs Vital Signs - First Documented 12/20/19 12/20/19 12:14 16:18 Temp 37.2 Pulse 80 Resp 18 B/P (MAP) 160/82 (108) Pulse Ox 100 O2 Delivery Room Air Capillary Refill : Height, Weight, BMI Height: '" Weight: lbs. oz. kg; 24.00 BMI Method: General Appearance: No Apparent Distress, WD/WN HEENT: Pharynx Normal, Other (mildly unequal pupil size with patient reports that has had surgery to his eye. Denies vision problems.) Neck: Non Tender, Supple Respiratory: Lungs Clear, Normal Breath Sounds Cardiovascular: Regular Rate, Rhythm, No Murmur Gastrointestinal: Non Tender, Soft Back: Normal Inspection, No CVA Tenderness, No Vertebral Tenderness Extremity: Normal Range of Motion, Non Tender, Pedal Edema (edema noted in both upper and lower extremities. Lower extremities edematous all the way up to hips with at least 2+. Bilateral upper extremities are edematous from hands to forearms.) Neurologic/Psychiatric: Alert, Oriented x3 Skin: Normal Color, Warm/Dry Progress/Results/Core Measures Suspected Sepsis SIRS Temperature: Pulse: Respiratory Rate: Laboratory Tests 12/20/19 12:25: White Blood Count 10.6 Blood Pressure / Mean: Laboratory Tests 12/20/19 12:25: Creatinine 4.15H, Platelet Count 348, Total Bilirubin 0.2 Results/Orders Lab Results Laboratory Tests Test 12/20/19 12:19 12/20/19 12:25 12/20/19 12:29 Range/Units Urine Color YELLOW Urine Clarity CLEAR Urine pH 6.0 5-9 Urine Specific [place] 1.020 1.016-1.022 Urine Protein 3+ H NEGATIVE Urine Glucose (UA) 3+ H NEGATIVE Urine Ketones NEGATIVE NEGATIVE Urine Nitrite NEGATIVE NEGATIVE Urine Bilirubin NEGATIVE NEGATIVE Urine Urobilinogen 0.2 < = 1.0 MG/DL Urine Leukocyte Esterase NEGATIVE NEGATIVE Urine RBC (Auto) 1+ H NEGATIVE Urine RBC 10-25 H /HPF Urine WBC 0-2 /HPF Urine Crystals NONE /LPF Urine Bacteria TRACE /HPF Urine Casts PRESENT /LPF Urine Granular Casts 5-10 H /LPF Urine Mucus NEGATIVE /LPF Urine Culture Indicated NO White Blood Count 10.6 4.3-11.0 10^3/uL Red Blood Count 3.14 L 4.35-5.85 10^6/uL Hemoglobin 9.0 L 13.3-17.7 G/DL Hematocrit 28 L 40-54 % Mean Corpuscular Volume 89 80-99 FL Mean Corpuscular Hemoglobin 29 25-34 PG Mean Corpuscular Hemoglobin Concent 32 32-36 G/DL Red Cell Distribution Width 16.3 H 10.0-14.5 % Platelet Count 348 130-400 10^3/uL Mean Platelet Volume 10.0 7.4-10.4 FL Neutrophils (%) (Auto) 63 42-75 % Lymphocytes (%) (Auto) 21 12-44 % Monocytes (%) (Auto) 8 0-12 % Eosinophils (%) (Auto) 6 0-10 % Basophils (%) (Auto) 1 0-10 % Neutrophils # (Auto) 6.7 1.8-7.8 X 10^3 Lymphocytes # (Auto) 2.3 1.0-4.0 X 10^3 Monocytes # (Auto) 0.9 0.0-1.0 X 10^3 Eosinophils # (Auto) 0.7 H 0.0-0.3 10^3/uL Basophils # (Auto) 0.1 0.0-0.1 10^3/uL Sodium Level 137 135-145 MMOL/L Potassium Level 6.0 H 3.6-5.0 MMOL/L Chloride Level 113 H 98-107 MMOL/L Carbon Dioxide Level 16 L 21-32 MMOL/L Anion Gap 8 5-14 MMOL/L Blood Urea Nitrogen 60 H 7-18 MG/DL Creatinine 4.15 H 0.60-1.30 MG/DL Estimat Glomerular Filtration Rate 16 BUN/Creatinine Ratio 14 Glucose Level 159 H 70-105 MG/DL Calcium Level 8.1 L 8.5-10.1 MG/DL Corrected Calcium 9.1 8.5-10.1 MG/DL Total Bilirubin 0.2 0.1-1.0 MG/DL Aspartate Amino Transf (AST/SGOT) 23 5-34 U/L Alanine Aminotransferase (ALT/SGPT) 30 0-55 U/L Alkaline Phosphatase 142 H 40-136 U/L B-Type Natriuretic Peptide 3718.6 H <100.0 PG/ML Total Protein 6.4 6.4-8.2 GM/DL Albumin 2.8 L 3.2-4.5 GM/DL Beta-Hydroxybutyrate (Chem panel) 0.13 0.00-0.27 MMOL/L Glucometer 179 H 70-110 MG/DL My Orders Orders - ALFONSO FERNANDES MD Furosemide Injection (Lasix Injection) (12/20/19 14:05) Metolazone Tablet (Zaroxolyn Tablet) (12/20/19 14:15) Metolazone Tablet (Zaroxolyn Tablet) (12/20/19 14:45) Furosemide Injection (Lasix Injection) (12/20/19 14:45) Metolazone Tablet (Zaroxolyn Tablet) (12/20/19 14:45) Medications Given in ED Current Medications Medications Dose Ordered Sig/Meng Route Start Time Stop Time Status Last Admin Dose Admin Metolazone 2.5 mg ONCE ONCE PO 12/20/19 14:15 12/20/19 14:16 DC 12/20/19 14:57 10 MG Vital Signs/I&O 12/20/19 12/20/19 12/20/19 12:14 15:59 16:18 Temp 37.2 36.7 Pulse 80 88 83 Resp 18 18 18 B/P (MAP) 160/82 (108) 160/88 170/110 Pulse Ox 100 100 100 O2 Delivery Room Air Capillary Refill : Progress Note : Progress Note Seen and evaluated. IV, labs, UA and EKG ordered. Chest x-ray ordered. Fingerstick blood sugar. Monitor patient. 1400: Patient noted to have elevated creatinine markedly elevated BNP. Chest x-ray noted. I do not believe there is concern for pneumonia given patient's laboratory studies. I did discuss the case with Dr. Sainz and she's accept patient for admission but would request cardiology input. 1425: On-call scientific programmer is Dr. Coronel. I did speak with him regarding the case. He accepts consult regarding heart failure. We have given metolazone 2.5 mg by mouth and Lasix 80 mg IV. He is recommending increased dose of metolazone and Lasix as patient's current dosing hasn't been helpful. 1500: I did increase metolazone to 10 mg by mouth and we were going to do an additional 40 mg of Lasix IV. Patient now relates the story that he had ran out of his Lasix at 40 mg by mouth twice a day and got a new prescription but that was only 20 mg twice a day. He has had swelling that has been increasing over the last month and a half since being out of his Lasix and then being on the half dose. Despite the continuation of the half dose, swelling continued. He states when he is on 40 mg by mouth twice a day that he was able to stay stable. Due to this, I rediscussed the case with Dr. Sainz. We will just do Lasix 80 mg IV now and twice a day and see how he does. Patient was informed of all of this and agrees with the plan. If we have problems with increasing creatinine or potassium, patient may need to be transferred. He follows with Dr. Mary Mei at [facility] in [facility] and this would be were he should be transfe rred to needed. Admit, inpatient status. Patient agrees to plan. ECG Initial ECG Impression Date: December 20, 2019 Initial ECG Impression Time: 12:18 Initial ECG Rate: 91 Initial ECG Rhythm: Normal Sinus Comment Sinus rhythm with normal axis. No evidence of a still elevation NM. Similar to previous of 08/19/19. Interpreted by me. Diagnostic Imaging Diagonstic Imaging: Xray Plain Films/CT/US/NM/MRI: chest Comments [facility] [place] NAME: [facility] REC#: [id number] PT STATUS: REG ER : 1980 PHYSICIAN: ROSI ROGERS APRN ADMIT DATE: 12/20/19/ER Draft Date of Exam:12/20/19 CHEST 1 VIEW, AP/PA ONLY INDICATION: Abnormal blood work, pleural effusion. COMPARISON: August 19, 2019. TECHNIQUE: Single frontal radiograph of the chest dated December 20, 2019. FINDINGS: The cardiac silhouette is enlarged, similar to the prior examination. No significant pulmonary vascular congestion. Moderate right and small left bibasilar pleural-parenchymal opacities are present, increased from prior examination. Upper lungs are clear. No pneumothorax. No acute osseous abnormality. IMPRESSION: Moderate right and small left bibasilar pleural-parenchymal opacities, increased in the prior exam. These are felt related to a combination of pleural fluid with adjacent atelectasis and/or infiltrate. Persistent enlargement of the cardiac silhouette without pulmonary vascular congestion. Dictated on workstation # [id number] Dict: 12/20/19 1327 Trans: 12/20/19 1333 [facility] [id number] Interpreted by: MIRA YANG MD Electronically signed by: Departure Communication (Admissions) Time/Spoke to Admitting Phy: 14:00 Time/Spoke to Consulting Phy: 14:25 Impression Primary Impression: Acute on chronic renal failure Qualified Codes: N17.9 - Acute kidney failure, unspecified; N18.9 - Chronic kidney disease, unspecified Additional Impression: Volume overload Qualified Codes: E87.70 - Fluid overload, unspecified Disposition: ADMITTED INPATIENT Condition: Stable Admissions Decision to Admit Reason: Admit from ER (General) Decision to Admit/Date: December 20, 2019 Time/Decision to Admit Time: 14:00 Departure-Patient Inst. Referrals: [facility] [place]) Primary Care Physician ALFONSO FERNANDES MD December 20, 2019 12:34
[2019-12-20 12:36] LABS: BASOPHILS # (AUTO) 0.1 10^3/uL (0.0-0.1); BASOPHILS % (AUTO) 1 % (0-10); EOSINOPHILS # (AUTO) 0.7 10^3/uL (0.0-0.3); EOSINOPHILS % (AUTO) 6 % (0-10); HEMATOCRIT 28 % (40-54); LYMPHOCYTES # (AUTO) 2.3 X 10^3 (1.0-4.0); LYMPHOCYTES % (AUTO) 21 % (12-44); MEAN CORPUSCULAR HEMOGLOBIN 29 PG (25-34); MEAN CORPUSCULAR HGB CONC 32 G/DL (32-36); MEAN CORPUSCULAR VOLUME 89 FL (80-99); MONOCYTES # (AUTO) 0.9 X 10^3 (0.0-1.0); MONOCYTES % (AUTO) 8 % (0-12); NEUTROPHILS # (AUTO) 6.7 X 10^3 (1.8-7.8); NEUTROPHILS % (AUTO) 63 % (42-75); PLATELET COUNT 348 10^3/uL (130-400); RED CELL DISTRIBUTION WIDTH 16.3 % (10.0-14.5); WHITE BLOOD COUNT 10.6 10^3/uL (4.3-11.0)
[2019-12-20 12:40] LABS: BACTERIA,URINE TRACE /HPF; WBC,URINE 0-2 /HPF
[2019-12-20 12:46] LABS: ALBUMIN 2.8 GM/DL (3.2-4.5)
[2019-12-20 12:47] LABS: CALCIUM 8.1 MG/DL (8.5-10.1)
[2019-12-20 12:48] LABS: TOTAL PROTEIN 6.4 GM/DL (6.4-8.2)
[2019-12-20 12:50] LABS: BILIRUBIN,TOTAL 0.2 MG/DL (0.1-1.0)
[2019-12-20 12:52] LABS: CREATININE SERUM 4.15 MG/DL (0.60-1.30)
--- NOTE | 2019-12-20 13:34 | Diagnostic Imaging Report ---
INDICATION: Abnormal blood work, pleural effusion. COMPARISON: August 19, 2019. TECHNIQUE: Single frontal radiograph of the chest dated December 20, 2019. FINDINGS: The cardiac silhouette is enlarged, similar to the prior examination. No significant pulmonary vascular congestion. Moderate right and small left bibasilar pleural-parenchymal opacities are present, increased from prior examination. Upper lungs are clear. No pneumothorax. No acute osseous abnormality. IMPRESSION: Moderate right and small left bibasilar pleural-parenchymal opacities, increased since the prior exam. These are felt related to a combination of pleural fluid with adjacent atelectasis and/or infiltrate. Persistent enlargement of the cardiac silhouette without pulmonary vascular congestion. Dictated by: Dictated on workstation # [id number]
[2019-12-20] MEDS ORDERED: FUROSEMIDE 40 MG/4 ML INJ (LASIX) IV STA (14:05)
[2019-12-20] MEDS ORDERED: METOLAZONE 2.5 MG (ZAROXOLYN) TAB PO ONE ×2 (14:15→14:45)
--- OUTSIDE RECORDS SUMMARY | 2019-12-20 14:27 | XMS REPORT | Continuity of Care Document ---
Author Organization Unknown Address Unknown Phone Unavailable Allergies Active Description Code Type Severity Reaction Onset Reported/Identified Relationship to Patient Clinical Status Yes No Known Drug Allergies [id number] Drug Allergy Unknown N/A 07/13/2019 Yes latex [id number] Drug Allergy Unknown N/A 10/11/2019 Yes Hrflahu-Msv-Cyn Reductase Inhibitor [id number] Drug Allergy Unknown N/A 10/11/2019 Medications There is no data. 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 CAMEROONIAN 28 mL/min/1.73m2 > OR = 60 eGFR 32 mL/min/1.73m2 > OR = 60 BUN/CREATININE RATIO 18 (calc) 6-22 SODIUM 141 mmol/L 135-146 POTASSIUM 5.3 mmol/L 3.5-5.3 CHLORIDE 111 mmol/L 98-110 CARBON DIOXIDE 25 mmol/L 20-32 CALCIUM 8.3 mg/dL 8.6-10.3 ALBUMIN 3.0 g/dL 3.6-5.1 PHOSPHATE ( PHOSPHORUS) 4.5 mg/dL 2.5- 4.5 Complete urinalysis with reflex to cultu re - 12/20/19 12:19 Urine color determination YELLOW NRG Urine clarity determination CLEAR NR G Urine pH measurement by test strip 6.0 5-9 Specific gravity of urine by test strip 1.020 1.016-1.022 Urine protein assay by test strip, semi-quantitative 3+ NEGATIVE Urine glucose detection by automated test strip 3+ NEGATIVE Erythrocytes detection in urine sediment by light micr oscopy 1+ NEGATIVE Urine ketones detection by automated test [...] leukocyte count by microscopy (number/high power field) [HPF] NRG Bacteria detection in urine sediment by light microsco py TRACE NRG Crystals detection in urine sediment by light microsco py NONE NRG Casts detection in urine sediment by light microscopy PRESENT NRG Mucus detection in urine sediment by light microscopy NEGATIVE NRG Complete urinalysis with reflex to culture NO NRG Granular casts detection in urine sediment by light mi croscopy 5-10 NRG Complete blood count (CBC) with automate d white blood cell (WBC) differential - 12/20/19 12:25 Blood leukocytes automated count (number/volume) 10.6 10*3/uL 4.3-11.0 Blood erythrocytes automated count (number/volume) 3.14 10*6/uL 4.35-5.85 Venous blood hemoglobin measurement (mass/volume) 9.0 g/dL 13.3-17.7 Blood hematocrit (volume fraction) 28 % 40-54 Automated erythrocyte mean corpuscular volume 89 [ foz_us] 80-99 Automated erythrocyte mean corpuscular h emoglobin (mass per erythrocyte) 29 pg 25-34 Automated erythrocyte mean corpuscular h emoglobin concentration measurement (mass/volume) 32 g/dL 32-36 Automated erythrocyte distribution width ratio 16. 3 % 10.0- 14.5 Automated blood platelet count (count/volume) 348 10*3/uL 130-400 Automated blood platelet mean volume measurement 10.0 [foz_us] 7.4-10.4 Automated blood neutrophils/100 leukocytes 63 % 42-75 Automated blood lymphocytes/100 leukocytes 21 % 12-44 Blood monocytes/100 leukocytes 8 % 0-12 Automated blood eosinophils/100 leukocytes 6 % 0-10 Automated blood basophils/100 leukocytes 1 % 0-10 Blood neutrophils automated count (number/volume) 6.7 10*3 1.8-7.8 Blood lymphocytes automated count (number/volume) 2.3 10*3 1.0-4.0 Blood monocytes automated count (number/volume) 0. 9 10*3 0.0-1.0 Automated eosinophil count 0.7 10*3/uL 0 .0-0.3 Automated blood basophil count (count/volume) 0.1 10*3/uL 0.0-0.1 Comprehensive metabolic panel - 12/20/19 12:25 Serum or plasma sodium measurement (moles/volume) 137 mmol/L 135-145 Serum or plasma potassium measurement (moles/volume) 6.0 mmol/L 3.6-5.0 Serum or plasma chloride measurement (moles/volume) 113 mmol/L 98-107 Carbon dioxide 16 mmol/L 21-32 Serum or plasma anion gap determination (moles/volume) 8 mmol/L 5-14 Serum or plasma urea nitrogen measurement (mass/volume ) 60 mg/dL 7-18 Serum or plasma creatinine measurement (mass/volume) 4.15 mg/dL 0.60-1.30 Serum or plasma urea nitrogen/creatinine mass ratio 14 NRG Serum or plasma creatinine measurement w ith calculation of estimated glomerular filtration rate 16 NRG Serum or plasma glucose measurement (mass/volume) 159 mg/dL 70-105 Serum or plasma calcium measurement (mass/volume) 8.1 mg/dL 8.5-10.1 Serum or plasma total bilirubin measurement (mass/volu me) 0.2 mg/dL 0.1-1.0 Serum or plasma alkaline phosphatase ander surement (enzymatic activity/volume) 142 U/L 40-136 Serum or plasma aspartate aminotransfera se measurement (enzymatic activity/volume) 23 U/L 5-34 Serum or plasma alanine aminotransferase measurement (enzymatic activity/volume) 30 U/L 0-55 Serum or plasma protein measurement (mass/volume) 6.4 g/dL 6.4-8.2 Serum or plasma albumin measurement (mass/volume) 2.8 g/dL 3.2-4.5 CALCIUM CORRECTED 9.1 mg/dL 8.5-10.1 Beta-hydroxybutyric acid measurement - 0 12/20/19 12:25 Beta-hydroxybutyric acid measurement 0.13 mmol/L 0.00-0.27 Serum or plasma lithium measurement (mol es/volume) - 12/20/19 12:25 BNP PT 3718.6 pg/mL <100.0 Capillary blood glucose measurement by g lucometer (mass/volume) - 12/20/19 12:29 Capillary blood glucose measurement by glucometer (mas s/volume) 179 mg/dL 70-110 Encounters ACCT No. Visit Date/Time Discharge Status Pt. Type Provider Facility Loc./Unit Complaint [id number] 08/26/2019 09:00:00 08/26/2019 23:59: 59 CLS Outpatient ISRAEL CLARKE MD [facility] [id number] 08/29/2019 08:40:00 Document Registration [id number] 08/26/2019 09:00:00 Document Registration [id number] 07/29/2019 13:20:00 Document Registration [id number] 10/23/2019 20:15:00 20:33:00 DIS Emergency ROSI ROGERS APRN Via [facility] ER FALL/ HEAD INJURY [id number] 10/21/2019 08:28:00 23:59:59 CLS Outpatient SANTANA BALTAZAR MD [facility] SDC IRON DEF ANEMIA [id number] 08/19/2019 13:58:00 17:24:00 DIS Emergency ROSI ROGERS APRN [facility] ER SWOLLEN TESTICLES [id number] 08/15/2019 10:07:00 23:59:59 CLS Outpatient ISRAEL CLARKE MD [facility] RAD BILATERAL TESTICULAR SW ELLING [id number] 08/14/2019 20:04:00 020 22:04:00 DIS Emergency ALFONSO FERNANDES MD [facility] ER SWOLLEN TESTICL ES [id number] 07/13/2019 16:00:00 019 20:21:00 DIS Emergency ROSI ROGERS APRN Via [facility] ER COUGH / CONGESTION / BA CK PAIN [id number] 12/20/2019 12:39:00 Document Registration
[2019-12-20] MEDS ORDERED: METOLAZONE 5 MG (ZAROXOLYN) TAB PO ONE (14:45)
[2019-12-20] MEDS ORDERED: FUROSEMIDE 40 MG/4 ML INJ (LASIX) IVP ONE (14:45)
--- NOTE | 2019-12-20 16:14 | Consultation-Cardiology ---
HPI-Cardiology Cardiology Consultation: Date of Consultation 12/20/19 Time Seen by a Provider: 15:30 Date of Admission 12-20-2019 Attending Physician Juany Sainz MD Admitting Physician [facility] Consulting Physician RUMA RODRIGUEZ MD HPI: Chief Complaint: CHF Mr. Wells is a 39 year old male being admitted through the ED d/t acute CHF. He states he has chronic LE swelling and had been on Lasix 40mg BID for several years which has been controlling the swelling, however, the last time his Lasix was filled it was only a supply for daily. He reports increasing LE swelling, scrotal edema, abdominal distension and bilat arm swelling. He reports he had lab done by his PCP at [facility] a few days ago and was told his lab showed his potassium had something wrong with it. He reports increasing AMBRIZ which has been limiting his activity. He reports he was diagnosed with IDDM at age 23. He reports he sees nephrology services, Dr. Mary Mei. He denies every having any dialysis in the past. He denies any CP, palpitations, syncope or near syncope. He denies any recreational drug use. He reports he quit smoking several years ago. He states he is trying to get his symptoms better controlled so he can move back of [place] in the next few days to be closer to family. He denies any fever or chills. He denies any n/v/d. Review of Systems-Cardiology Review of Systems Constitutional: No chills, No fever; malaise Eyes: other (reports recent left eye surgery d/t retinal detachment; reports chronic floater in his right eye) Ears/Nose/Throat: No epistaxis, No recent hearing loss, No throat pain, No throat swelling; other (swelling of the left side of his face) Respiratory: As described under HPI Cardiovascular: As described under HPI Gastrointestinal: abdomen distended; No constipation, No diarrhea, No nausea, No vomiting Genitourinary: No dysuria, No hematuria; other (scrotal swelling) Musculoskeletal: no symptoms reported Skin: As described under HPI; No rash on exposed areas, No ulcerations on exposed areas Psychiatric/Neurological: anxiety, depression; No seizure, No syncope Hematologic: No bleeding abnormalities All Other Systems Reviewed Negative Unless Noted: Yes QOG-Ptjuiv-Mebunz Hx Patient Social History Alcohol Use: Denies Use Recreational Drug Use: No Smoking Status: Never a Smoker 2nd Hand Smoke Exposure: No Recent Foreign Travel: No Immunizations Up To Date Tetanus Booster (TDap): Less than 5yrs Past Medical History PMH As described under Assessment. Family Medical History Family Medical History: He reports his father has DM and asthma. Mother has HTN, sleep apnea, asthma, depression. Allergies and Home Medications Allergies Coded Allergies: Wbnflmf-Rma-Jcv Reductase Inhibitor (Unverified Adverse Reaction, Unknown, 10/11/19) latex (Unverified Adverse Reaction, Unknown, 10/11/19) Home Medications Albuterol Sulfate 1 Puff Puff, 2 PUFF IH Q4H PRN for WEAKNESS 1 PUFF = 90 MCG Prescribed by: ROSI ROGERS on 07/13/191826 Aspirin 81 Mg Tablet.dr, 81 MG PO DAILY, (Reported) Furosemide 20 Mg Tablet, 20 MG PO BID, (Reported) LAST FILLED 10-24-2019 #60/30 DAY SUPPLY Hydralazine HCl 50 Mg Tablet, 50 MG PO Q8H, (Reported) LAST FILLED 10-24-2019 #90/30 DAY SUPPLY Insulin Aspart 100 Unit/1 Ml Susp, 0 SQ UD, (Reported) Insulin Glargine,Hum.rec.anlog 300 Unit/1 Ml Insuln.pen, 15 UNIT SQ DAILY, (Reported) Metoprolol Succinate 100 Mg Tab.er.24h, 100 MG PO TID, (Reported) Multivitamin 1 Each Tablet, 1 EACH PO DAILY, (Reported) Niacinamide 500 Mg Tablet, 500 MG PO DAILY, (Reported) [place] 3 Polyunsat Fatty Acids 1,000 Mg Cap, 1,000 MG PO DAILY, (Reported) Patient Home Medication List Home Medication List Reviewed: Yes Physical Exam-Cardiology Physical Exam Vital Signs/I&O 12/24/19 12/24/19 12/24/19 12/24/19 00:24 01:00 04:00 07:00 Temp 37.1 36.9 Pulse 64 64 65 65 Resp 20 20 B/P (MAP) 135/79 (97) 159/84 (109) Pulse Ox 96 95 O2 Delivery Room Air Room Air 12/24/19 12/24/19 12/24/19 07:18 08:00 08:00 Temp 36.7 Pulse 70 Resp 16 B/P (MAP) 147/89 (108) Pulse Ox 96 96 O2 Delivery Room Air Room Air Room Air 12/24/19 00:00 Intake Total 1780 ml Balance 1780 ml Capillary Refill : Constitutional: AAO x 3, well-developed, well-nourished HEENT: PERRL, hearing is well preserved Neck: No carotid bruit; carotid pulses are 2 + bilaterally Respiratory: No accessory muscle use, No respiratory distress; other (diminished lower lobes) Cardiovascular: regular rate-rhythm; No JVD; S1 and S2, systolic murmur Gastrointestinal: No tender; distended; No tenderness; audible bowel sounds Extremities: other (bilat pitting edema feet, scrotum, abdomen, arms bilat) Neurologic/Psychiatric: grossly intact (moves all extremities) Skin: No rash on exposed areas, No ulcerations on exposed areas Data Review Labs Laboratory Tests 12/23/19 11:13: Glucometer 342H 12/23/19 15:38: Glucometer 252H 12/23/19 20:42: Glucometer 148H 12/24/19 04:35: Glucometer 72 12/24/19 05:03: Sodium Level 137, Potassium Level 5.2H, Chloride Level 108H, Carbon Dioxide Level 19L, Anion Gap 10, Blood Urea Nitrogen 74H, Creatinine 4.74H, Estimat Glomerular Filtration Rate 14, BUN/Creatinine Ratio 16, Glucose Level 61L, Calcium Level 7.5L, Magnesium Level 1.8 12/24/19 05:12: White Blood Count 8.1, Red Blood Count 2.61L, Hemoglobin 7.4L, Hematocrit 23L, Mean Corpuscular Volume 89, Mean Corpuscular Hemoglobin 28, Mean Corpuscular Hemoglobin Concent 32, Red Cell Distribution Width 15.8H, Platelet Count 310, Mean Platelet Volume 9.5 Microbiology 12/23/19 Gram Stain - Final, Resulted 12/23/19 Anaerobic Culture, Resulted Pending 12/23/19 Wound Culture - Preliminary, Resulted Staphylococcus aureus Radiology NAME: JONASEVERETTNOEBARRERA Plummer [facility] REC#: [id number] PT STATUS: REG ER : 1980 PHYSICIAN: ROSI ROGERS APRN ADMIT DATE: 12/20/19/ER Signed Date of Exam:12/20/19 CHEST 1 VIEW, AP/PA ONLY INDICATION: Abnormal blood work, pleural effusion. COMPARISON: August 19, 2019. TECHNIQUE: Single frontal radiograph of the chest dated December 20, 2019. FINDINGS: The cardiac silhouette is enlarged, similar to the prior examination. No significant pulmonary vascular congestion. Moderate right and small left bibasilar pleural-parenchymal opacities are present, increased from prior examination. Upper lungs are clear. No pneumothorax. No acute osseous abnormality. IMPRESSION: Moderate right and small left bibasilar pleural-parenchymal opacities, increased since the prior exam. These are felt related to a combination of pleural fluid with adjacent atelectasis and/or infiltrate. Persistent enlargement of the cardiac silhouette without pulmonary vascular congestion. Dictated by: Dictated on workstation # [id number] Dict: 12/20/19 1327 Trans: 12/20/19 1525 [facility] [id number] Interpreted by: MIRA YANG MD Electronically signed by: MIRA YANG MD 12/20/19 1525 A/P-Cardiology Assessment/Admission Diagnosis Anasarca CHF of undetermined etiology Acute on chronic renal failure CKD stage 4-5 - follows with [place] nephrology services, Dr. Hernandez Hyperkalemia - secondary to renal failure HTN - uncontrolled IDDM (diagnosed age 23) HLD per pt report - reported intolerance to statin Asthma H/O left retinal detachment, recent surgery H/O "chronic right eye floater" per pt report Reports left Charcot foot Tobaccoism - quit "years ago" Chronic anemia - oral iron tx per pt Discussion and Recomendations Complex management issue Acute on chronic renal failure with stage 4-5 CKD Hyperkalemia likely secondary to renal failure Uncontrolled hypertension despite Toprol XL 300mg daily and Hydralazine 50mg TID Advise treatment with diuretics and monitor lab closely Echocardiogram to eval structure and function Consider transfer to a tertiary facility with nephrology services, whom he is already established with Dr. Mary Mei at [facility] JOSHUA GAMEZ December 20, 2019 16:14
[2019-12-20 16:18] VITALS: BP 170/110
[2019-12-20] MEDS ORDERED: CATHETER FLUSH 10 ML SYR IV PRN (16:45)
--- OUTSIDE RECORDS SUMMARY | 2019-12-20 16:54 | XMS REPORT | Continuity of Care Document ---
Author Organization Unknown Address Unknown Phone Unavailable Allergies Active Description Code Type Severity Reaction Onset Reported/Identified Relationship to Patient Clinical Status Yes No Known Drug Allergies [id number] Drug Allergy Unknown N/A 07/13/2019 Yes latex [id number] Drug Allergy Unknown N/A 10/11/2019 Yes [place]-Czw-Ddc Reductase Inhibitor [id number] Drug Allergy Unknown N/A 10/11/2019 Medications There is no data. 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 CROATIAN 28 mL/min/1.73m2 > OR = 60 eGFR [...] Status Pt. Type Provider Facility Loc./Unit Complaint [id number] 08/26/2019 09:00:00 08/26/2019 23:59: 59 CLS Outpatient ISRAEL CLARKE MD [facility] [id number] 08/29/2019 08:40:00 Document Registration [id number] 08/26/2019 09:00:00 Document Registration [id number] 07/29/2019 13:20:00 Document Registration [id number] 10/23/2019 20:15:00 20:33:00 DIS Emergency ROSI ROGERS APRN Via [facility] ER FALL/ HEAD INJURY [id number] 10/21/2019 08:28:00 23:59:59 CLS Outpatient SANTANA BALTAZAR MD Via [facility] SDC IRON DEF ANEMIA [id number] 08/19/2019 13:58:00 17:24:00 DIS Emergency ROSI ROGERS APRN Via [facility] ER SWOLLEN TESTICLES [id number] 08/15/2019 10:07:00 23:59:59 CLS Outpatient ISRAEL CLARKE MD [facility] RAD BILATERAL TESTICULAR SW ELLING [id number] 08/14/2019 20:04:00 22:04:00 DIS Emergency DENA MIRANDA, ALFONSO Santos [facility] ER SWOLLEN TESTICL ES [id number] 07/13/2019 16:00:00 019 20:21:00 DIS Emergency ROSI ROGERS APRN [facility] ER COUGH / CONGESTION / BA CK PAIN [id number] 12/20/2019 12:11:[address] Emergency DENA MIRANDA, ALFONSO Santos [facility] ER ABNORMAL BLOOD WORK
[2019-12-20 17:35] VITALS: BP 188/129
--- NOTE | 2019-12-20 17:35 | NUR ---
PT TRANSFERRED FROM [facility] TO [facility] VIA W/ STAFF AND PERSONAL BELONGINGS. PT HAS NO C/O AT THIS TIME. WILL CONT TO MONITOR.
[2019-12-20] MEDS ORDERED: NON-FORMULARY MEDICATION 1 EA EA (Hydralazine HCl 50 MG) PO SCH (18:45)
[2019-12-20] MEDS ORDERED: RT-ALBUTEROL SULF 2.5 MG/3 ML PRE-MIX VIAL IH PRN (18:45)
[2019-12-20] MEDS ORDERED: ALBUMIN 25% 25 GM/100 ML 100 ML IV NR (19:00)
[2019-12-20 19:05] LABS: POTASSIUM 5.5 MMOL/L (3.6-5.0)
[2019-12-20 19:06] LABS: CALCIUM 7.9 MG/DL (8.5-10.1)
[2019-12-20 19:10] LABS: CREATININE SERUM 3.99 MG/DL (0.60-1.30)
--- NOTE | 2019-12-20 19:29 | Consultation-Cardiology ---
HPI-Cardiology Cardiology Consultation: Date of Consultation 12/20/19 Time Seen by a Provider: 18:10 Date of Admission Attending Physician Juany Sainz MD Admitting Physician [facility] Consulting Physician RUMA RODRIGUEZ MD, MA, FACP, FAC, [facility], [facility] Physician requesting consult: Dr Sainz HPI: Chief Complaint: Reason for consultation: CHF HPI Mr. Wells is a 39 year old male being admitted through the ED d/t acute CHF. He states he has chronic LE swelling and had been on Lasix 40mg BID for several years which has been controlling the swelling, however, the last time his Lasix was filled it was only a supply for daily. He reports increasing LE swelling, scrotal edema, abdominal distension and bilat arm swelling. He reports he had lab done by his PCP at [facility] a few days ago and was told his lab showed his potassium had something wrong with it. He reports increasing AMBRIZ which has been limiting his activity. He reports he was diagnosed with IDDM at age 23. He reports he sees nephrology services, Dr. Mary Mei. He denies every having any dialysis in the past. He denies any CP, palpitations, syncope or near syncope. He denies any recreational drug use. He reports he quit smoking several years ago. He states he is trying to get his symptoms better controlled so he can move back of [place] in the next few days to be closer to family. He denies any fever or chills. He denies any n/v/d. Review of Systems-Cardiology Review of Systems Constitutional: No chills, No fever; malaise Eyes: other (reports recent left eye surgery d/t retinal detachment; reports chronic floater in his right eye) Ears/Nose/Throat: No epistaxis, No recent hearing loss, No throat pain, No throat swelling; other (swelling of the left side of his face) Respiratory: As described under HPI Cardiovascular: As described under HPI Gastrointestinal: abdomen distended; No constipation, No diarrhea, No nausea, No vomiting Genitourinary: No dysuria, No hematuria; other (scrotal swelling) Musculoskeletal: no symptoms reported Skin: As described under HPI; No rash on exposed areas, No ulcerations on exposed areas Psychiatric/Neurological: anxiety, depression; No seizure, No syncope Hematologic: No bleeding abnormalities All Other Systems Reviewed Negative Unless Noted: Yes YZC-Wxlxoj-Hyudnd Hx Patient Social History Alcohol Use: Denies Use Recreational Drug Use: No Smoking Status: Never a Smoker 2nd Hand Smoke Exposure: No Recent Foreign Travel: No Recent Infectious Disease Expo: No Hospitalization with Isolation: Denies Physical Abuse Screen: No Sexual Abuse: No Immunizations Up To Date Tetanus Booster (TDap): Less than 5yrs Date of Pneumonia Vaccine: December 19, 2018 Past Medical History PMH As described under Assessment. Family Medical History Family Medical History: He reports his father has DM and asthma. Mother has HTN, sleep apnea, asthma, depression. Allergies and Home Medications Allergies Coded Allergies: Lvxtxxg-Jte-Wil Reductase Inhibitor (Unverified Adverse Reaction, Unknown, 10/11/19) latex (Unverified Adverse Reaction, Unknown, 10/11/19) Home Medications Albuterol Sulfate 1 Puff Puff, 2 PUFF IH Q4H PRN for WEAKNESS 1 PUFF = 90 MCG Prescribed by: ROSI ROGERS on 07/13/19 1827 Aspirin 81 Mg Tablet.dr, 81 MG PO DAILY, (Reported) Furosemide 40 Mg Tablet, 40 MG PO BID, (Reported) Hydralazine HCl 50 Mg Tablet, 50 MG PO Q8H, (Reported) Insulin Aspart 100 Unit/1 Ml Susp, 0 SQ UD, (Reported) Insulin Glargine,Hum.rec.anlog 300 Unit/1 Ml Insuln.pen, 15 UNIT SQ DAILY, (Reported) Metoprolol Tartrate 100 Mg Tablet, 100 MG PO TID, (Reported) Multivitamin 1 Each Tablet, 1 EACH PO DAILY, (Reported) Niacinamide 500 Mg Tablet, 500 MG PO DAILY, (Reported) [place] 3 Polyunsat Fatty Acids 1,000 Mg Cap, 1,000 MG PO DAILY, (Reported) Patient Home Medication List Home Medication List Reviewed: Yes Physical Exam-Cardiology Physical Exam Vital Signs/I&O 12/20/19 12/20/19 12/20/19 12/20/19 12:14 15:59 16:18 17:35 Temp 37.2 36.7 36.4 Pulse 80 88 83 95 Resp 18 20 B/P (MAP) 160/82 (108) 160/88 170/110 188/129 (148) Pulse Ox 100 100 100 97 O2 Delivery Room Air Room Air 12/20/19 18:10 O2 Delivery Room Air Capillary Refill : NONELess Than 3 Seconds Constitutional: AAO x 3, well-developed, well-nourished HEENT: PERRL, hearing is well preserved Neck: No carotid bruit; carotid pulses are 2 + bilaterally Respiratory: No accessory muscle use, No respiratory distress; other (diminished lower lobes) Cardiovascular: regular rate-rhythm; No JVD; S1 and S2, systolic murmur Gastrointestinal: No tender; distended; No tenderness; audible bowel sounds Extremities: other (bilat pitting edema feet, scrotum, abdomen, arms bilat) Neurologic/Psychiatric: grossly intact (moves all extremities) Skin: No rash on exposed areas, No ulcerations on exposed areas Data Review Labs Laboratory Tests 12/20/19 12:19: Urine Color YELLOW, Urine Clarity CLEAR, Urine pH 6.0, Urine Specific [place] 1.020, Urine Protein 3+H, Urine Glucose (UA) 3+H, Urine Ketones NEGATIVE, Urine Nitrite NEGATIVE, Urine Bilirubin NEGATIVE, Urine Urobilinogen 0.2, Urine Leukocyte Esterase NEGATIVE, Urine RBC (Auto) 1+H, Urine RBC 10-25H, Urine WBC 0-2, Urine Crystals NONE, Urine Bacteria TRACE, Urine Casts PRESENT, Urine Granular Casts 5-10H, Urine Mucus NEGATIVE, Urine Culture Indicated NO 12/20/19 12:25: White Blood Count 10.6, Red Blood Count 3.14L, Hemoglobin 9.0L, Hematocrit 28L, Mean Corpuscular Volume 89, Mean Corpuscular Hemoglobin 29, Mean Corpuscular Hemoglobin Concent 32, Red Cell Distribution Width 16.3H, Platelet Count 348, Mean Platelet Volume 10.0, Neutrophils (%) (Auto) 63, Lymphocytes (%) (Auto) 21, Monocytes (%) (Auto) 8, Eosinophils (%) (Auto) 6, Basophils (%) (Auto) 1, Neutrophils # (Auto) 6.7, Lymphocytes # (Auto) 2.3, Monocytes # (Auto) 0.9, Eosinophils # (Auto) 0.7H, Basophils # (Auto) 0.1, Sodium Level 137, Potassium Level 6.0H, Chloride Level 113H, Carbon Dioxide Level 16L, Anion Gap 8, Blood Urea Nitrogen 60H, Creatinine 4.15H, Estimat Glomerular Filtration Rate 16, BUN/Creatinine Ratio 14, Glucose Level 159H, Calcium Level 8.1L, Corrected Calcium 9.1, Total Bilirubin 0.2, Aspartate Amino Transf (AST/SGOT) 23, Alanine Aminotransferase (ALT/SGPT) 30, Alkaline Phosphatase 142H, B-Type Natriuretic Peptide 3718.6H, Total Protein 6.4, Albumin 2.8L, Beta-Hydroxybutyrate (Chem panel) 0.13 12/20/19 12:29: Glucometer 179H 12/20/19 18:51: Sodium Level 138, Potassium Level 5.5H, Chloride Level 111H, Carbon Dioxide Lev el 17L, Anion Gap 10, Blood Urea Nitrogen 60H, Creatinine 3.99H, Estimat Leandra merular Filtration Rate 17, BUN/Creatinine Ratio 15, Glucose Level 161H, Calcium Level 7.9L A/P-Cardiology Assessment/Admission Diagnosis Anasarca Chronic systolic CHF of undetermined etiology Nehrotic syndrome and acute on chronic renal failure. CKD stage 4-5 - follows with flume worker Dr. Mary Rick. This is being managed by Dr Sainz during this hospitalization Hyperkalemia and acidosis - secondary to renal failure - reported to be chronic. 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 This is being managed by Dr Sainz Echo of 12/20/19: LVEF 35-40%, small to mod pericardial eff w/o any evidence of hemodynamic significance, pleural eff, mod MR, mod TR, pulmonary hypertension with PASP 52 mmHg HTN - uncontrolled IDDM (diagnosed age 23) HLD per pt report - reported intolerance to statin Asthma H/O left retinal detachment, recent surgery H/O "chronic right eye floater" per pt report Reports left Charcot foot Tobaccoism - quit "years ago" Chronic anemia - oral iron tx per pt Discussion and Recomendations * Complex management due to multiple comorbidities * I called Dr Sainz on the phone and discussed the case with her in detail. Dr Sainz is managing renal failure, hyperkalemia and acidosis * Continue antihypertensive regimen * Diuretics as needed and tolerated * We recommend consideration of transfer to a tertiary care facility with Nephrology services. Pt may need dialysis / ultrafiltration to treat anasarca in the presence of apparently worsening renal failure. I reviewed all of this with Dr Sainz Clinical Quality Measures DVT/VTE Risk/Contraindication: Risk Factor Score Per Nursin RFS Level Per Nursing on Admit: 1=Low/No VTE PPX RUMA RODRIGUEZ MD FACP FAC CCDS December 20, 2019 19:29
[2019-12-20 19:32] VITALS: BP 186/125
[2019-12-20] MEDS: meTOprolol TARTRATE 50 MG (LOPRESSOR) TAB PO SCH (19:34)
[2019-12-20] MEDS: hydrALAZINE (APRESOLINE) 25 MG TAB PO SCH (19:34)
[2019-12-20] MEDS: FUROSEMIDE 40 MG/4 ML INJ (LASIX) IV SCH (19:35)
[2019-12-20] MEDS ORDERED: NON-FORMULARY MEDICATION 1 EA EA (Metoprolol Tartrate 100 MG) PO SCH (21:00)
[2019-12-20] MEDS ORDERED: SODIUM BICARBONATE 8.4% VIAL 100 MEQ in 1/2 NS IV SOLUTION 1,000 ML IV SCH (21:00)
[2019-12-20] MEDS: inSUlin ASPART (NovoLOG) 1 UNIT/0.01 ML (CHARGE PER UNIT) SC SCH (21:12)
--- NOTE | 2019-12-20 21:20 | NUR ---
NOTIFIED DR CRAIG OF E-ICU [facility]NS FOR PATIENT POSSIBLE NEED FOR TRANSFER TO ANOTHER FACILITY. NO NEW ORDERS RECEIVED AT THIS TIME. E-ICU UPDATED.
[2019-12-20 21:37] VITALS: BP 150/105
[2019-12-20] MEDS: CATHETER FLUSH 10 ML SYR IV SCH (21:51)
[2019-12-20 23:57] VITALS: BP 180/110
[2019-12-21] VITALS (8 sets, daily range): BP systolic 147–185; BP diastolic 90–102
[2019-12-21 03:19] LABS: BASOPHILS # (AUTO) 0.1 10^3/uL (0.0-0.1); BASOPHILS % (AUTO) 1 % (0-10); EOSINOPHILS # (AUTO) 0.6 10^3/uL (0.0-0.3); EOSINOPHILS % (AUTO) 8 % (0-10); HEMATOCRIT 23 % (40-54); HEMOGLOBIN 7.2 G/DL (13.3-17.7); LYMPHOCYTES # (AUTO) 2.3 X 10^3 (1.0-4.0); LYMPHOCYTES % (AUTO) 30 % (12-44); MEAN CORPUSCULAR HEMOGLOBIN 29 PG (25-34); MEAN CORPUSCULAR HGB CONC 32 G/DL (32-36); MEAN CORPUSCULAR VOLUME 89 FL (80-99); MEAN PLATELET VOLUME 9.6 FL (7.4-10.4); MONOCYTES # (AUTO) 0.6 X 10^3 (0.0-1.0); MONOCYTES % (AUTO) 8 % (0-12); NEUTROPHILS % (AUTO) 53 % (42-75); PLATELET COUNT 286 10^3/uL (130-400); RED CELL DISTRIBUTION WIDTH 15.6 % (10.0-14.5); WHITE BLOOD COUNT 7.6 10^3/uL (4.3-11.0)
[2019-12-21 03:39] LABS: ALBUMIN 2.5 GM/DL (3.2-4.5); BILIRUBIN,TOTAL 0.2 MG/DL (0.1-1.0); CALCIUM 7.8 MG/DL (8.5-10.1); CREATININE SERUM 3.93 MG/DL (0.60-1.30); MAGNESIUM 1.9 MG/DL (1.6-2.4); PHOSPHORUS 4.5 MG/DL (2.3-4.7); POTASSIUM 5.1 MMOL/L (3.6-5.0); TOTAL PROTEIN 5.2 GM/DL (6.4-8.2)
[2019-12-21] MEDS: CATHETER FLUSH 10 ML SYR IV SCH ×3 (05:40→22:01)
[2019-12-21] MEDS: inSUlin ASPART (NovoLOG) 1 UNIT/0.01 ML (CHARGE PER UNIT) SC SCH ×4 (05:41→21:55)
[2019-12-21] MEDS: hydrALAZINE (APRESOLINE) 25 MG TAB PO SCH ×3 (05:49→22:00)
[2019-12-21] MEDS: FUROSEMIDE 40 MG/4 ML INJ (LASIX) IV SCH ×2 (05:49→16:33)
[2019-12-21] MEDS: ASPIRIN E.C. 81 MG (ECOTRIN) TAB PO SCH (08:56)
[2019-12-21] MEDS: meTOprolol TARTRATE 50 MG (LOPRESSOR) TAB PO SCH ×3 (08:56→22:00)
[2019-12-21] MEDS ORDERED: [UNRECOGNIZED DRUG - OTHER] SQ SCH (09:00)
[2019-12-21] MEDS ORDERED: INSULIN GLARGINE HUM REC ANLOG 15 UNIT SQ SCH (09:00)
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
[2019-12-21] MEDS: SODIUM BICARBONATE 650 MG TABLET (NON-FORMULARY) PO SCH ×3 (13:09→22:00)
--- NOTE | 2019-12-21 13:10 | NUR ---
report received from ICU
--- NOTE | 2019-12-21 13:12 | Progress Note - Cardiology ---
Cardiology SOAP Progress Note Subjective: Does not report cp or palp or syncope or shortness of breath at rest Still has gen swelling States urine output has picked up since admission Denies focal weakness Has gen malaise, mild Denies n/v/d Objective: I&O/Vital Signs 12/21/19 12/21/19 12/21/19 12/21/19 04:19 05:48 06:40 07:50 Temp 36.7 Pulse 73 81 Resp 16 B/P (MAP) 180/100 (126) 185/100 (128) Pulse Ox 100 95 O2 Delivery Room Air Room Air 12/21/19 12/21/19 12/21/19 12/21/19 08:00 08:45 08:59 11:30 Temp 36.6 B/P (MAP) 170/90 (116) 159/92 (114) 147/91 (109) Pulse Ox 95 95 O2 Delivery Room Air Room Air 12/21/19 12/21/19 12/21/19 11:45 11:46 13:00 Pulse 91 Pulse Ox 97 97 O2 Delivery Room Air Room Air 12/21/19 00:00 Intake Total 225 ml Output Total 750 ml Balance -525 ml Constitutional: AAO x 3, well-developed, well-nourished Respiratory: No accessory muscle use, No respiratory distress; other (diminished lower lobes) Cardiovascular: regular rate-rhythm; No JVD; S1 and S2, systolic murmur Gastrointestional: No tender; distended; No tenderness; audible bowel sounds Extremities: other (bilat pitting edema feet, scrotum, abdomen, arms bilat) Neurologic/Psychiatric: grossly intact (moves all extremities) Skin: No rash on exposed areas, No ulcerations on exposed areas Results/Procedures: Labs Laboratory Tests 12/20/19 18:51: Sodium Level 138, Potassium Level 5.5H, Chloride Level 111H, Carbon Dioxide Level 17L, Anion Gap 10, Blood Urea Nitrogen 60H, Creatinine 3.99H, Estimat Glomerular Filtration Rate 17, BUN/Creatinine Ratio 15, Glucose Level 161H, Calcium Level 7.9L 12/20/19 21:50: Glucometer 174H 12/21/19 02:39: Sodium Level 138, Potassium Level 5.1H, Chloride Level 113H, Carbon Dioxide Level 16L, Anion Gap 9, Blood Urea Nitrogen 60H, Creatinine 3.93H, Estimat Glomerular Filtration Rate 17, BUN/Creatinine Ratio 15, Glucose Level 94, Calcium Level 7.8L, White Blood Count 7.6, Red Blood Count 2.52L, Hemoglobin 7.2L, Hematocrit 23L, Mean Corpuscular Volume 89, Mean Corpuscular Hemoglobin 29, Mean Corpuscular Hemoglobin Concent 32, Red Cell Distribution Width 15.6H, Platelet Count 286, Mean Platelet Volume 9.6, Neutrophils (%) (Auto) 53, Lymphocytes (%) (Auto) 30, Monocytes (%) (Auto) 8, Eosinophils (%) (Auto) 8, Basophils (%) (Auto) 1, Neutrophils # (Auto) 4.0, Lymphocytes # (Auto) 2.3, Mo nocytes # (Auto) 0.6, Eosinophils # (Auto) 0.6H, Basophils # (Auto) 0.1, Correc valerie Calcium 9.0, Phosphorus Level 4.5, Magnesium Level 1.9, Total Bilirubin 0.2, Aspartate Amino Transf (AST/SGOT) 14, Alanine Aminotransferase (ALT/SGPT) 21, Alkaline Phosphatase 108, Total Protein 5.2L, Albumin 2.5L, Triglycerides Level 133, Cholesterol Level 171, LDL Cholesterol Direct 104, VLDL Cholesterol 27, HDL Cholesterol 40 12/21/19 05:54: Glucometer 61L 12/21/19 08:54: Glucometer 173H 12/21/19 11:35: Glucometer 191H Laboratory Tests 12/20/19 12:25 12/20/19 18:51 12/21/19 02:39 A/P: Assessment: Anasarca Chronic systolic CHF of undetermined etiology Nephrotic syndrome and ikeev-nj-ulqaipp renal failure. CKD stage 4-5 - follows with motion picture equipment machinist Dr. Mary Rick. This is being managed by Dr Sainz during this hospitalization Hyperkalemia and acidosis - secondary to renal failure - reported to be chronic. 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 This is being managed by Dr Sainz Echo of 12/20/19: LVEF 35-40%, small to mod pericardial eff w/o any evidence of hemodynamic significance, pleural eff, mod MR, mod TR, pulmonary hypertension with PASP 52 mmHg HTN - uncontrolled IDDM (diagnosed age 23) HLD per pt report - reported intolerance to statin Asthma H/O left retinal detachment, recent surgery H/O "chronic right eye floater" per pt report Reports left Charcot foot Tobaccoism - quit "years ago" Chronic anemia - oral iron tx per pt Plan: * Complex management due to multiple comorbidities * I discussed his case with Dr Sainz on the phone on 12/20/19. Dr Sainz is managing renal failure, hyperkalemia and acidosis * For ac-on-ch systolic CHF, continue bb. Not suitable for MARK-inhib or ARB or Entresto, given ac-on-ch renal failure * Continue antihypertensive regimen * Diuretics as needed and tolerated * May need transfer for dialysis / ultrafiltration to treat anasarca if unresponsive to diuretics. I have reviewed all of this with RUMA Mccoy MD FACP FACC CCDS December 21, 2019 13:12
--- NOTE | 2019-12-21 13:20 | NUR ---
pt arrived to floor via WC with ICU staff, pt oriented to room and call light, denies needs at this time, will continue to monitor.
[2019-12-22] VITALS: BP 146/86
[2019-12-22 04:34] VITALS: BP 160/94
[2019-12-22 04:35] LABS: BASOPHILS # (AUTO) 0.1 10^3/uL (0.0-0.1); BASOPHILS % (AUTO) 1 % (0-10); EOSINOPHILS # (AUTO) 0.4 10^3/uL (0.0-0.3); EOSINOPHILS % (AUTO) 5 % (0-10); HEMATOCRIT 23 % (40-54); HEMOGLOBIN 7.4 G/DL (13.3-17.7); LYMPHOCYTES # (AUTO) 2.3 X 10^3 (1.0-4.0); LYMPHOCYTES % (AUTO) 28 % (12-44); MEAN CORPUSCULAR HEMOGLOBIN 29 PG (25-34); MEAN CORPUSCULAR HGB CONC 32 G/DL (32-36); MEAN CORPUSCULAR VOLUME 89 FL (80-99); MEAN PLATELET VOLUME 9.8 FL (7.4-10.4); MONOCYTES # (AUTO) 0.7 X 10^3 (0.0-1.0); MONOCYTES % (AUTO) 9 % (0-12); NEUTROPHILS # (AUTO) 4.6 X 10^3 (1.8-7.8); NEUTROPHILS % (AUTO) 57 % (42-75); PLATELET COUNT 288 10^3/uL (130-400)
[2019-12-22 04:49] LABS: ALBUMIN 2.5 GM/DL (3.2-4.5); POTASSIUM 5.5 MMOL/L (3.6-5.0)
[2019-12-22 04:51] LABS: CALCIUM 7.6 MG/DL (8.5-10.1)
[2019-12-22 04:52] LABS: TOTAL PROTEIN 5.2 GM/DL (6.4-8.2)
[2019-12-22 04:53] LABS: BILIRUBIN,TOTAL 0.1 MG/DL (0.1-1.0)
[2019-12-22 04:55] LABS: CREATININE SERUM 4.08 MG/DL (0.60-1.30)
[2019-12-22] MEDS: CATHETER FLUSH 10 ML SYR IV SCH ×3 (06:04→22:25)
[2019-12-22] MEDS: inSUlin ASPART (NovoLOG) 1 UNIT/0.01 ML (CHARGE PER UNIT) SC SCH ×4 (06:05→21:07)
[2019-12-22] MEDS: hydrALAZINE (APRESOLINE) 25 MG TAB PO SCH ×3 (06:20→22:25)
[2019-12-22] MEDS: FUROSEMIDE 40 MG/4 ML INJ (LASIX) IV SCH ×2 (06:20→17:15)
[2019-12-22 08:00] VITALS: BP 171/107
[2019-12-22] MEDS: ASPIRIN E.C. 81 MG (ECOTRIN) TAB PO SCH (08:33)
[2019-12-22] MEDS: SODIUM BICARBONATE 650 MG TABLET (NON-FORMULARY) PO SCH ×4 (08:33→21:07)
[2019-12-22] MEDS: meTOprolol TARTRATE 50 MG (LOPRESSOR) TAB PO SCH ×3 (08:33→21:07)
[2019-12-22] MEDS: amLODIPine 5 MG (NORVASC) TAB PO SCH (09:18)
[2019-12-22 12:00] VITALS: BP 150/90
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
--- NOTE | 2019-12-22 13:06 | Progress Note - Cardiology ---
Cardiology SOAP Progress Note Subjective: Shortness of breath and leg swelling modestly improved No cp or palp or syncope No n/v/d Gen malaise No focal weakness Objective: I&O/Vital Signs 12/22/19 12/22/19 12/22/19 12/22/19 04:34 06:26 07:22 08:00 Temp 36.9 Pulse 71 74 Resp 18 B/P (MAP) 160/94 (116) Pulse Ox 98 O2 Delivery Room Air Room Air Room Air 12/22/19 12/22/19 08:00 12:00 Temp 36.6 36.7 Pulse 78 69 Resp 16 16 B/P (MAP) 171/107 (128) 150/90 (110) Pulse Ox 98 97 O2 Delivery Room Air Room Air 12/22/19 00:00 Intake Total 2270 ml Output Total 600 ml Balance 1670 ml Constitutional: AAO x 3, well-developed, well-nourished Respiratory: No accessory muscle use, No respiratory distress; other (diminishe d lower lobes) Cardiovascular: regular rate-rhythm; No JVD; S1 and S2, systolic murmur Gastrointestional: No tender; distended; No tenderness; audible bowel sounds Extremities: other (bilat pitting edema feet, scrotum, abdomen, arms bilat) Neurologic/Psychiatric: grossly intact (moves all extremities) Skin: No rash on exposed areas, No ulcerations on exposed areas Results/Procedures: Labs Laboratory Tests 12/21/19 15:44: Glucometer 197H 12/21/19 21:00: Glucometer 105 12/22/19 01:33: Glucometer 52*L 12/22/19 02:02: Glucometer 112H 12/22/19 04:18: White Blood Count 8.0, Red Blood Count 2.58L, Hemoglobin 7.4L, Hematocrit 23L, Mean Corpuscular Volume 89, Mean Corpuscular Hemoglobin 29, Mean Corpuscular Hemoglobin Concent 32, Red Cell Distribution Width 16.0H, Platelet Count 288, Mean Platelet Volume 9.8, Neutrophils (%) (Auto) 57, Lymphocytes (%) (Auto) 28, Monocytes (%) (Auto) 9, Eosinophils (%) (Auto) 5, Basophils (%) (Auto) 1, Neutrophils # (Auto) 4.6, Lymphocytes # (Auto) 2.3, Monocytes # (Auto) 0.7, Eosinophils # (Auto) 0.4H, Basophils # (Auto) 0.1, Sodium Level 137, Potassium Level 5.5H, Chloride Level 112H, Carbon Dioxide Level 16L, Anion Gap 9, Blood Urea Nitrogen 63H, Creatinine 4.08H, Estimat Glomerular Filtration Rate 17, BUN/Creatinine Ratio 15, Glucose Level 71, Calcium Level 7.6L, Corrected Calcium 8.8, Total Bilirubin 0.1, Aspartate Amino Transf (AST/SGOT) 14, Alanine Aminotransferase (ALT/SGPT) 17, Alkaline Phosphatase 110, Total Protein 5.2L, Albumin 2.5L 12/22/19 07:57: Glucometer 171H 12/22/19 11:08: Glucometer 186H Laboratory Tests 12/20/19 18:51 12/21/19 02:39 12/22/19 04:18 A/P: Assessment: Anasarca Chronic systolic CHF of undetermined etiology Nephrotic syndrome and [id number] renal failure. CKD stage 4-5 - follows with relationship manager Dr. Mary Rick. This is being managed by Dr Sainz during this hospitalization Hyperkalemia and acidosis - secondary to renal failure - reported to be chronic. 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 This is being managed by Dr Sainz Echo of 12/20/19: LVEF 35-40%, small to mod pericardial eff w/o any evidence of hemodynamic significance, pleural eff, mod MR, mod TR, pulmonary hypertension with PASP 52 mmHg HTN - uncontrolled IDDM (diagnosed age 23) HLD per pt report - reported intolerance to statin Asthma H/O left retinal detachment, recent surgery. H/O "chronic right eye floater" per pt report Reports left Charcot foot Tobaccoism - quit "years ago" Chronic anemia - probably related to chronic renal failure - managed by the Med Svce Plan: * Complex management due to multiple comorbidities * I discussed his case with Dr Sainz on the phone on 12/20/19. Dr Sainz is managing renal failure, hyperkalemia and acidosis * For ac-on-ch systolic CHF, continue bb. Not suitable for MARK-inhib or ARB or Entresto, given ac-on-ch renal failure * Repeat echo tomorrow to f/u on pericardial fluid * Continue antihypertensive regimen * Diuretics as needed and tolerated * May need transfer for dialysis / ultrafiltration to treat anasarca if unresponsive to diuretics. I have reviewed all of this with RUMA Mccoy MD FACP [facility] December 22, 2019 13:05
[2019-12-22] MEDS: SOD POLYSTERENE 15 GM/60 ML (KAYEXALATE) UNIT DOSE PO SCH (13:27)
[2019-12-22 15:38] VITALS: BP 153/84
[2019-12-22 20:03] VITALS: BP 162/93
[2019-12-23] VITALS: BP 158/90
[2019-12-23 04:00] VITALS: BP 151/88
[2019-12-23 04:42] LABS: BASOPHILS # (AUTO) 0.1 10^3/uL (0.0-0.1); BASOPHILS % (AUTO) 1 % (0-10); EOSINOPHILS # (AUTO) 0.4 10^3/uL (0.0-0.3); EOSINOPHILS % (AUTO) 5 % (0-10); HEMATOCRIT 23 % (40-54); HEMOGLOBIN 7.3 G/DL (13.3-17.7); LYMPHOCYTES # (AUTO) 2.4 X 10^3 (1.0-4.0); LYMPHOCYTES % (AUTO) 30 % (12-44); MEAN CORPUSCULAR HEMOGLOBIN 29 PG (25-34); MEAN CORPUSCULAR HGB CONC 32 G/DL (32-36); MEAN CORPUSCULAR VOLUME 89 FL (80-99); MEAN PLATELET VOLUME 9.8 FL (7.4-10.4); MONOCYTES # (AUTO) 0.8 X 10^3 (0.0-1.0); MONOCYTES % (AUTO) 10 % (0-12); NEUTROPHILS # (AUTO) 4.2 X 10^3 (1.8-7.8); NEUTROPHILS % (AUTO) 53 % (42-75); PLATELET COUNT 295 10^3/uL (130-400); RED CELL DISTRIBUTION WIDTH 15.6 % (10.0-14.5); WHITE BLOOD COUNT 7.8 10^3/uL (4.3-11.0)
[2019-12-23 04:57] LABS: CALCIUM 7.4 MG/DL (8.5-10.1)
[2019-12-23 05:01] LABS: CREATININE SERUM 4.4 MG/DL (0.60-1.30)
[2019-12-23] MEDS: hydrALAZINE (APRESOLINE) 25 MG TAB PO SCH ×3 (06:32→22:22)
[2019-12-23] MEDS: FUROSEMIDE 40 MG/4 ML INJ (LASIX) IV SCH ×2 (06:33→17:37)
[2019-12-23] MEDS: CATHETER FLUSH 10 ML SYR IV SCH ×3 (06:33→22:21)
[2019-12-23] MEDS: inSUlin ASPART (NovoLOG) 1 UNIT/0.01 ML (CHARGE PER UNIT) SC SCH ×4 (06:33→21:22)
[2019-12-23 07:56] VITALS: BP 160/91
[2019-12-23] MEDS ORDERED: meTOprolol TARTRATE 25 MG (LOPRESSOR) TABLET PO ONE (09:00)
[2019-12-23] MEDS: SODIUM BICARBONATE 650 MG TABLET (NON-FORMULARY) PO SCH ×4 (09:14→21:22)
[2019-12-23] MEDS: SOD POLYSTERENE 15 GM/60 ML (KAYEXALATE) UNIT DOSE PO SCH (09:14)
[2019-12-23] MEDS: amLODIPine 5 MG (NORVASC) TAB PO SCH (09:14)
[2019-12-23] MEDS: ASPIRIN E.C. 81 MG (ECOTRIN) TAB PO SCH (09:14)
--- NOTE | 2019-12-23 09:31 | Progress Note - Cardiology ---
Cardiology SOAP Progress Note Subjective: Does not report cp or shortness of breath or palp or syncope Swelling modestly improved No focal weakness Some gen malaise No n/v/d Objective: I&O/Vital Signs 12/23/19 12/23/19 12/23/19 12/23/19 00:00 01:00 04:00 07:00 Temp 36.5 37.0 Pulse 85 70 65 70 Resp 19 20 B/P (MAP) 158/90 (112) 151/88 (109) Pulse Ox 96 96 O2 Delivery Room Air Room Air 12/23/19 07:56 Temp 36.5 Pulse 78 Resp 16 B/P (MAP) 160/91 (114) Pulse Ox 99 O2 Delivery Room Air 12/23/19 00:00 Intake Total 2080 ml Output Total 300 ml Balance 1780 ml Constitutional: AAO x 3, well-developed, well-nourished Respiratory: No accessory muscle use; other (Fair air entry, diminished breath sound at both bases) Cardiovascular: regular rate-rhythm, S1 and S2, systolic murmur (soft RESHMA at card base) Gastrointestional: No tender; soft, distended (mildly distended), audible bowel sounds Extremities: other (bilat upper and lower limb swelling) Neurologic/Psychiatric: oriented x 3, other (Moves all limbs equally) Skin: No rash on exposed areas, No ulcerations on exposed areas Results/Procedures: Labs Laboratory Tests 12/22/19 11:08: Glucometer 186H 12/22/19 15:41: Glucometer 153H 12/22/19 20:08: Glucometer 184H 12/23/19 04:15: White Blood Count 7.8, Red Blood Count 2.55L, Hemoglobin 7.3L, Hematocrit 23L, Mean Corpuscular Volume 89, Mean Corpuscular Hemoglobin 29, Mean Corpuscular Hemoglobin Concent 32, Red Cell Distribution Width 15.6H, Platelet Count 295, Mean Platelet Volume 9.8, Neutrophils (%) (Auto) 53, Lymphocytes (%) (Auto) 30, Monocytes (%) (Auto) 10, Eosinophils (%) (Auto) 5, Basophils (%) (Auto) 1, Neutrophils # (Auto) 4.2, Lymphocytes # (Auto) 2.4, Monocytes # (Auto) 0.8, Eosinophils # (Auto) 0.4H, Basophils # (Auto) 0.1, Sodium Level 136, Potassium Level 5.0, Chloride Level 108H, Carbon Dioxide Level 18L, Anion Gap 10, Blood Urea Nitrogen 67H, Creatinine 4.40H, Estimat Glomerular Filtration Rate 15, BUN/Creatinine Ratio 15, Glucose Level 67L, Calcium Level 7.4L A/P: Assessment: Anasarca due to nephrotic syndrome and renal failure Nephrotic syndrome and etfxq-[id number] renal failure. CKD stage 4-5 - follows with production line assembler Dr. Mary Rick. This is being managed by Dr Sainz during this hospitalization Hyperkalemia and acidosis - secondary to renal failure - reported to be chronic. 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 This is being managed by Dr Sainz Chronic systolic CHF, likely related to hypertensive cardiovascular disease. Echo of 12/20/19: LVEF 35-40%, small to mod pericardial eff w/o any evidence of hemodynamic significance, pleural eff, mod MR, mod TR, pulmonary hypertension with PASP 52 mmHg. Last echo of 12/23/19 shows LVEF 50%, small amount of pericard fluid (hemodynamically insignificant) and L pleural effusion HTN - uncontrolled IDDM (diagnosed age 23) HLD per pt report - reported intolerance to statin H/o asthma H/o left retinal detachment, recent surgery. H/o "chronic right eye floater" per pt report Reports left Charcot foot Tobaccoism - quit "years ago" Chronic anemia - probably related to chronic renal failure - managed by the Med Svce Plan: * Complex management due to multiple comorbidities * Medical Svce managing nephrotic syndrome, renal failure, acidosis, DM II * Increase bb for bp control * For ac-on-ch systolic CHF, continue bb. Not suitable for MARK-inhib or ARB or Entresto, given ac-on-ch renal failure * Diuretics as needed and tolerated * May need transfer for dialysis / ultrafiltration to treat anasarca if unresponsive to diuretics. I have reviewed all of this with the Medical Service RUMA RODRIGUEZ MD FACP [facility] December 23, 2019 09:31
[2019-12-23] MEDS: meTOprolol TARTRATE 50 MG (LOPRESSOR) TAB PO SCH ×2 (10:24→21:22)
--- NOTE | 2019-12-23 10:46 | NUR ---
RD ASSESSMENT PMHx: hypercholesterolemia; HTN; DM PT INTERACTION: Pt was awake and pleasant during nutrition assessment. Pt states current appetite is pretty good. Note avg PO intake 81% x2d, per chart review. Pt states following a low-sodium diet at home, and has no issues with chewing/swallowing food. Pt states no recent issues with nausea, vomiting, constipation, or diarrhea. Note last BM was 5/10, and pt not currently on bowel regimen, per chart review. Pt states recent 25# wt gain, but unsure of timeframe. Note recent 20# wt gain x1mon, per chart review. Pt states current DM management is pretty good, and his avg blood glucose levels are "around 175". Note unable to determine recent HbA1c, per chart review. ABNORMAL NUTRITION-RELATED LAB VALUES LOW: glu 67; Ca 7.4 HIGH: Cl 108; BUN 67; cr 4.40 Est. kcal needs: 8788-3744 kcal | 20-25 kcal/kg Est. Pro needs: 65-81 g Pro | 0.8-1.0 g Pro/kg PES STATEMENT: Given PO intake, no nutrition diagnosis at this time (NO-1.1) INTERVENTION: Continue with current diet order of CHO 75g/m 0snack diet. Provided DM education with pt and discussed current management. Pt states using smartphone application of [employer] to monitor his CHO intake. Pt states he generally aims for 75 g CHO per meal, but may go over sometimes if he is hungry. Discussed with pt options other than increasing CHO to get more to eat. Suggested increasing protein intake in order to keep CHO around 75 g. Discussed healthy snack options and the relationship between DM and snacking. Pt appeared confident to follow suggestions upon discharge. Will continue to follow and reassess as pt needs, intake, and status change. MONITOR/EVALUATE: PO Intake; Plan of Care; Hydration Status; Weight Status; Lab Values Judah Carlton, MS, RD, LD
[2019-12-23] MEDS ORDERED: FURO20TA4 PO (11:10)
[2019-12-23] MEDS ORDERED: MTP100TCR PO (11:10)
--- NOTE | 2019-12-23 11:21 | NUR ---
SPOKE WITH THE PT AND CALLED [facility] TO COMPLETE THE MED REC THE MED REC HAD BEEN REVIEWED AND MEDICATIONS CONTINUED THIS PAST WEEKEND BEFORE A MED REC WAS DONE. METOPROLOL: AT ONE POINT THE PT WAS TAKING METOPROLOL TART 100MG 1 TAB TID- HE THINKS THIS WAS WHEN HE LIVED IN [place]. THE PT IS NOW SEEN AT [facility] AND THEY HAVE DISPENSED THE MED THRU [facility]. THE MEDICATION THAT DISPENSED WAS METOPROLOL SUCC 100MG WITH DIRECTIONS OF 1 TAB DAILY. ACCORDING TO THE PT HE CALLED THE NURSE AND TOLD THEM HE TAKES THIS MEDICATION TID (BUT NOW SPEAKING WITH THE PT HE DIDNT REALIZE IT CAME IN DIFFERENT FORMS)- THE PT SAYS HE WAS TOLD TO KEEP TAKING IT HOW HE WAS. THEREFORE THE PT HAS BEEN TAKING METOPROLOL SUCC 100MG 1 TAB TID. I LET THE [facility] AND HIS NURSE KNOW ABOUT THIS DISCREPANCY PT USES TOUJEO PENS- HE WAS GETTING THEM THRU THE [employer] LAST YEAR, AT ONE POINT HE SWITCHED TO A PUMP AND DIDNT NEED IT BUT DUE TO INSURANCE PURPOSES HE HAD TO QUIT USING HIS PUMP AND NOW IS USING TOUJEO AGAIN. HE INDICATES HE HAS ABOUT 9 PENS LEFT AND THEY IN 2020 THE FOLLOWING ARE FILL DATES FROM [facility]: 10-24-2019 FUROSEMIDE 20MG #60/30DS 10-24-2019 HYDRALAZINE 50MG #90/30DS I DID DOCUMENT THE PAST DUE FILL ON THE MED REC ON THE ABOVE MEDICATIONS 11-19-2019 NOVOLOG #5 PENS 11-19-2019 METOPROLOL SUCC #90 OTC MEDS: FISH OIL NIACIN ASPIRIN 81 MTV
[2019-12-23 11:52] VITALS: BP 158/93
--- NOTE | 2019-12-23 13:26 | NUR ---
CM/SS: Visited with pt as to his plan for discharge and his ability to afford diabetic supplies Plan: Undetermined at this time. Pt should return home and have follow up appointments with no other services. Summary: Pt has a history of having medical issues, related to his blood sugar and kidney function. Pt reports he has been on a insulin pump in the past and that he was working part time in [place] at [employer], and he moved to [place] and lost his insurance and has been having trouble with his blood sugars. He talked also about filing for disability. He reports having a kidney doctor in [place]. Pt request information about the financial services application and wanting to know if it is still good after 6 months. This worker will need to check with that department. Pt reports he is able to afford his diabetic supplies as he is getting them through [facility]. Pt also shares that he was recently signed up with [facility], and they have assistance through there as well, for medical supplies. Pt aware that this worker will check on the financial paperwork. Pt reports he may move back to his hometown in [place] his family request that he move home, to be more involved in his care. Pt is encouraged to transfer all of his medical stuff if he should move to [place]. He is undecided on this at this time. This worker will follow up.
--- NOTE | 2019-12-23 15:24 | Progress Note ---
Subjective Subjective/Events-last exam Patient states that his lip started draining pus this AM. States that he is not sure what happened but it was normal last night and now it is huge. No other complaints this AM. Tolerating PO diet Review of Systems HEENT: Other (lip swelling and pain) Pulmonary: No Dyspnea, No Cough Cardiovascular: No: Chest Pain, Palpitations Gastrointestinal: Nausea, Diarrhea Objective Exam Last Set of Vital Signs Vital Signs Date Time Temp Pulse Resp B/P (MAP) Pulse Ox O2 Delivery O2 Flow Rate FiO2 12/23/19 12:09 70 12/23/19 11:52 36.7 18 158/93 (114) 96 Room Air 12/21/19 18:54 21 Capillary Refill : Less Than 3 SecondsLess Than 3 Seconds I&O Intake and Output 12/23/19 00:00 Intake Total 2880 ml Output Total 300 ml Balance 2580 ml Intake Oral 2880 ml Output Urine Total 300 ml # Voids 4 # Bowel Movements 1 General: Alert, Oriented X3, Cooperative, No Acute Distress HEENT: Other (Swelling lower lip with draining abscess of purulent material, ttp) Lungs: Clear to Auscultation, Normal Air Movement Heart: Regular Rate, No Murmurs Abdomen: Normal Bowel Sounds, Soft, No Tenderness, No Masses Extremities: Other (2+ pitting edema) Results/Procedures Lab Laboratory Tests 12/22/19 15:41: Glucometer 153H 12/22/19 20:08: Glucometer 184H 12/23/19 04:15: White Blood Count 7.8, Red Blood Count 2.55L, Hemoglobin 7.3L, Hematocrit 23L, Mean Corpuscular Volume 89, Mean Corpuscular Hemoglobin 29, Mean Corpuscular Hemoglobin Concent 32, Red Cell Distribution Width 15.6H, Platelet Count 295, Mean Platelet Volume 9.8, Neutrophils (%) (Auto) 53, Lymphocytes (%) (Auto) 30, Monocytes (%) (Auto) 10, Eosinophils (%) (Auto) 5, Basophils (%) (Auto) 1, Neutrophils # (Auto) 4.2, Lymphocytes # (Auto) 2.4, Monocytes # (Auto) 0.8, Eosinophils # (Auto) 0.4H, Basophils # (Auto) 0.1, Sodium Level 136, Potassium Level 5.0, Chloride Level 108H, Carbon Dioxide Level 18L, Anion Gap 10, Blood Urea Nitrogen 67H, Creatinine 4.40H, Estimat Glomerular Filtration Rate 15, BUN/Creatinine Ratio 15, Glucose Level 67L, Calcium Level 7.4L 12/23/19 11:13: Glucometer 342H Radiology NAME: [facility] REC#: [id number] PT STATUS: REG ER : 1980 PHYSICIAN: ROSI ROGERS APRN ADMIT DATE: 12/20/19/ER Signed Date of Exam:12/20/19 CHEST 1 VIEW, AP/PA ONLY INDICATION: Abnormal blood work, pleural effusion. COMPARISON: August 19, 2019. TECHNIQUE: Single frontal radiograph of the chest dated December 20, 2019. FINDINGS: The cardiac silhouette is enlarged, similar to the prior examination. No significant pulmonary vascular congestion. Moderate right and small left bibasilar pleural-parenchymal opacities are present, increased from prior examination. Upper lungs are clear. No pneumothorax. No acute osseous abnormality. IMPRESSION: Moderate right and small left bibasilar pleural-parenchymal opacities, increased since the prior exam. These are felt related to a combination of pleural fluid with adjacent atelectasis and/or infiltrate. Persistent enlargement of the cardiac silhouette without pulmonary vascular congestion. Dictated by: Dictated on workstation # [id number] Dict: 12/20/19 1327 Trans: 12/20/19 1525 [facility] [id number] Interpreted by: MIRA YANG MD Electronically signed by: MIRA YANG MD 12/20/19 1525 Assessment/Plan Assessment/Plan (1) Hyperkalemia Status: Acute Assessment & Plan: 12/22: Patient has received Kayexalate, trending down, daily CMPs (2) Acute on chronic renal failure Status: Acute Assessment & Plan: 12/22: Follows with [facility] and has appt on Wed Qualifiers: Qualified Codes: N17.9 - Acute kidney failure, unspecified; N18.9 - Chronic kidney disease, unspecified (3) Anemia in chronic kidney disease (CKD) Status: Chronic Assessment & Plan: 12/22: Will get iron studies Qualifiers: Qualified Codes: N18.4 - Chronic kidney disease, stage 4 (severe); D63.1 - Anemia in chronic kidney disease (4) Volume overload Status: Acute Qualifiers: Qualified Codes: E87.70 - Fluid overload, unspecified (5) Lip abscess Status: Acute Assessment & Plan: 12/22: currently draining, culture done this AM, Started on renally dosed augmentin Clinical Quality Measures DVT/VTE Risk/Contraindication: Risk Factor Score Per Nursin RFS Level Per Nursing on Admit: 1=Low/No VTE PPX DWIGHT LUNA MD December 23, 2019 15:24
[2019-12-23 16:00] VITALS: BP 138/78
[2019-12-23 19:44] VITALS: BP 128/72
[2019-12-24] VITALS: BP 117/76
[2019-12-24 00:24] VITALS: BP 135/79
[2019-12-24 04:00] VITALS: BP 159/84
[2019-12-24 05:31] LABS: HEMOGLOBIN 7.4 G/DL (13.3-17.7); MEAN PLATELET VOLUME 9.5 FL (7.4-10.4); RED CELL DISTRIBUTION WIDTH 15.8 % (10.0-14.5); WHITE BLOOD COUNT 8.1 10^3/uL (4.3-11.0)
[2019-12-24 05:49] LABS: POTASSIUM 5.2 MMOL/L (3.6-5.0)
[2019-12-24 05:50] LABS: CALCIUM 7.5 MG/DL (8.5-10.1)
[2019-12-24] MEDS: CATHETER FLUSH 10 ML SYR IV SCH (05:53)
[2019-12-24] MEDS: inSUlin ASPART (NovoLOG) 1 UNIT/0.01 ML (CHARGE PER UNIT) SC SCH ×2 (05:53→11:18)
[2019-12-24 05:54] LABS: CREATININE SERUM 4.74 MG/DL (0.60-1.30)
[2019-12-24 05:56] LABS: MAGNESIUM 1.8 MG/DL (1.6-2.4)
[2019-12-24] MEDS: hydrALAZINE (APRESOLINE) 25 MG TAB PO SCH (05:58)
[2019-12-24] MEDS: FUROSEMIDE 40 MG/4 ML INJ (LASIX) IV SCH (07:00)
[2019-12-24 08:00] VITALS: BP 147/89
[2019-12-24] MEDS: ASPIRIN E.C. 81 MG (ECOTRIN) TAB PO SCH (08:42)
[2019-12-24] MEDS: amLODIPine 5 MG (NORVASC) TAB PO SCH (08:42)
[2019-12-24] MEDS: SODIUM BICARBONATE 650 MG TABLET (NON-FORMULARY) PO SCH (08:42)
[2019-12-24] MEDS: meTOprolol TARTRATE 50 MG (LOPRESSOR) TAB PO SCH (08:42)
[2019-12-24] MEDS: SOD POLYSTERENE 15 GM/60 ML (KAYEXALATE) UNIT DOSE PO SCH (08:43)
[2019-12-24] MEDS ORDERED: AUGMENTIN 500 MG TAB (AMOXICILLIN/CLAVULANATE) PO SCH (09:00)
[2019-12-24] MEDS ORDERED: SOD POLYSTERENE 15 GM/60 ML (KAYEXALATE) UNIT DOSE PO ONE (09:15)
--- NOTE | 2019-12-24 09:43 | Progress Note - Cardiology ---
Cardiology SOAP Progress Note Subjective: Sitting up in bed. States he is hoping to go home today so he can go to his nephrology appt tomorrow in [place]. Feels swelling has improved. No c/o SOB this morning. No c/o CP. Objective: I&O/Vital Signs 12/24/19 12/24/19 12/24/19 12/24/19 00:24 01:00 04:00 07:00 Temp 37.1 36.9 Pulse 64 64 65 65 Resp 20 20 B/P (MAP) 135/79 (97) 159/84 (109) Pulse Ox 96 95 O2 Delivery Room Air Room Air 12/24/19 12/24/19 12/24/19 07:18 08:00 08:00 Temp 36.7 Pulse 70 Resp 16 B/P (MAP) 147/89 (108) Pulse Ox 96 96 O2 Delivery Room Air Room Air Room Air 12/24/19 00:00 Intake Total 1780 ml Balance 1780 ml Constitutional: AAO x 3, well-developed, well-nourished Respiratory: No accessory muscle use; other (Fair air entry, diminished breath sound at both bases) Cardiovascular: regular rate-rhythm, S1 and S2, systolic murmur (soft RESHMA at card base) Gastrointestional: No tender; soft, distended (mildly distended), audible bowel sounds Extremities: other (bilat upper and lower limb swelling - improving) Neurologic/Psychiatric: oriented x 3, other (Moves all limbs equally) Skin: No rash on exposed areas, No ulcerations on exposed areas Results/Procedures: Labs Laboratory Tests 12/23/19 11:13: Glucometer 342H 12/23/19 15:38: Glucometer 252H 12/23/19 20:42: Glucometer 148H 12/24/19 04:35: Glucometer 72 12/24/19 05:03: Sodium Level 137, Potassium Level 5.2H, Chloride Level 108H, Carbon Dioxide Level 19L, Anion Gap 10, Blood Urea Nitrogen 74H, Creatinine 4.74H, Estimat Glomerular Filtration Rate 14, BUN/Creatinine Ratio 16, Glucose Level 61L, Calcium Level 7.5L, Magnesium Level 1.8 12/24/19 05:12: White Blood Count 8.1, Red Blood Count 2.61L, Hemoglobin 7.4L, Hematocrit 23L, Mean Corpuscular Volume 89, Mean Corpuscular Hemoglobin 28, Mean Corpuscular Hemoglobin Concent 32, Red Cell Distribution Width 15.8H, Platelet Count 310, Mean Platelet Volume 9.5 Microbiology 12/23/19 Gram Stain - Final, Resulted 12/23/19 Anaerobic Culture, Resulted Pending 12/23/19 Wound Culture - Preliminary, Resulted Staphylococcus aureus Laboratory Tests 12/23/19 04:15 12/24/19 05:03 12/24/19 05:12 A/P: Assessment: Anasarca due to nephrotic syndrome and renal failure Nephrotic syndrome and ummuw-ar-ramkkvy renal failure. CKD stage 4-5 - follows with looper fixer Dr. Mary Rick. This is being managed by Medical services (Dr Sainz/Dr. Gallegos) during this hospitalization Hyperkalemia and acidosis - secondary to renal failure - reported to be chronic. 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 This is being managed by Medical services (Dr. Sainz/Dr. Gallegos) Chronic systolic CHF, likely related to hypertensive cardiovascular disease. Echo of 12/20/19: LVEF 35-40%, small to mod pericardial eff w/o any evidence of hemodynamic significance, pleural eff, mod MR, mod TR, pulmonary hypertension with PASP 52 mmHg. Last echo of 12/23/19 shows LVEF 50%, small amount of pericard fluid (hemodynamically insignificant) and L pleural effusion HTN - uncontrolled IDDM (diagnosed age 23) HLD per pt report - reported intolerance to statin H/o asthma H/o left retinal detachment, recent surgery. H/o "chronic right eye floater" per pt report Reports left Charcot foot Tobaccoism - quit "years ago" Chronic anemia - probably related to chronic renal failure - managed by the Med Svce Plan: * Complex management due to multiple comorbidities * Medical Svce managing nephrotic syndrome, renal failure, acidosis, DM II * BP improved following increased dose of BB * For ac-on-ch systolic CHF, continue bb. Not suitable for MARK-inhib or ARB or Entresto, given ac-on-ch renal failure * Diuretics as needed and tolerated * May need transfer for dialysis / ultrafiltration to treat anasarca if unresponsive to diuretics. I have reviewed all of this with the Medical Service JOSHUA GAMEZ December 24, 2019 09:43
--- NOTE | 2019-12-24 10:14 | NUR ---
CM/SS: Visited with pt as to plan for discharge Plan: Pt will return home, likely discharge today, with no identified services. Pt to follow up with his radar mechanic with appt on 12/25/19 in [place]. Summary: Follow up with pt as to his request on if his financial application is still on file. Pt is informed that it has been sent to [place] for approval, and is still current and no need to complete any other information. Pt thanked this worker for the information.
--- NOTE | 2019-12-24 11:26 | Discharge Summary ---
Diagnosis/Chief Complaint Date of Admission December 20, 2019 at 15:00 Date of Discharge Discharge Diagnosis Problems/Diagnosis: (1) Hyperkalemia Assessment & Plan: 12/22: Patient has received Kayexalate, trending down, daily CMPs Status: Acute (2) Acute on chronic renal failure Assessment & Plan: 12/22: Follows with [facility] and has appt on Wed Qualifiers: Qualified Codes: N17.9 - Acute kidney failure, unspecified; N18.9 - Chronic kidney disease, unspecified Status: Acute (3) Anemia in chronic kidney disease (CKD) Assessment & Plan: 12/22: Will get iron studies Qualifiers: Qualified Codes: N18.4 - Chronic kidney disease, stage 4 (severe); D63.1 - Anemia in chronic kidney disease Status: Chronic (4) Volume overload Qualifiers: Qualified Codes: E87.70 - Fluid overload, unspecified Status: Acute (5) Lip abscess Assessment & Plan: 12/22: currently draining, culture done this AM, Started on renally dosed augmentin Status: Acute Discharge Summary-Simple/Stand Consultations Dede Garces Discharge Physical Examination Allergies: Coded Allergies: Zepyczy-Ezv-Ruq Reductase Inhibitor (Unverified Adverse Reaction, Unknown, 10/11/19) latex (Unverified Adverse Reaction, Unknown, 10/11/19) Vitals & I&Os Vital Sign - Last 12Hours Date Time Temp Pulse Resp B/P (MAP) Pulse Ox O2 Delivery O2 Flow Rate FiO2 12/24/19 08:00 36.7 70 16 147/89 (108) 96 Room Air 12/21/19 18:54 21 Intake and Output 12/24/19 00:00 Intake Total 1780 ml Balance 1780 ml Hospital Course See final discharge diagnosis. Radiology Reviewed NAME: KELLEN MCDANIEL [facility] REC#: [id number] PT STATUS: REG ER : 1980 PHYSICIAN: ROSI ROGERS APRN ADMIT DATE: 12/20/19/ER Signed Date of Exam:12/20/19 CHEST 1 VIEW, AP/PA ONLY INDICATION: Abnormal blood work, pleural effusion. COMPARISON: August 19, 2019. TECHNIQUE: Single frontal radiograph of the chest dated December 20, 2019. FINDINGS: The cardiac silhouette is enlarged, similar to the prior examination. No significant pulmonary vascular congestion. Moderate right and small left bibasilar pleural-parenchymal opacities are present, increased from prior examination. Upper lungs are clear. No pneumothorax. No acute osseous abnormality. IMPRESSION: Moderate right and small left bibasilar pleural-parenchymal opacities, increased since the prior exam. These are felt related to a combination of pleural fluid with adjacent atelectasis and/or infiltrate. Persistent enlargement of the cardiac silhouette without pulmonary vascular congestion. Dictated by: Dictated on workstation # [id number] Dict: 12/20/19 1327 Trans: 12/20/19 1525 [facility] [id number] Interpreted by: MIRA YANG MD Electronically signed by: MIRA YANG MD 12/20/19 1525 Discharge Instructions to patient/family Please see electronic discharge instructions given to patient. Discharge Medications Reviewed and agree with Discharge Medication list on patient's Discharge Instruction sheet Clinical Quality Measures DVT/VTE Risk/Contraindication: Risk Factor Score Per Nursin RFS Level Per Nursing on Admit: 1=Low/No VTE PPX DWIGHT LUNA MD December 24, 2019 11:26
[2019-12-24] MEDS ORDERED: SODI650T PO (11:30)
[2019-12-24] MEDS ORDERED: FURO20TA4 PO (11:30)
[2019-12-24] MEDS ORDERED: CLIN150C17 PO (11:30)
[2019-12-24] MEDS ORDERED: AMLO5TAB9 PO (11:30)
--- NOTE | 2019-12-24 11:34 | Discharge Summary ---
Discharge [facility] Reconcile Patient Problems Problems Reviewed?: Yes Discharge Medications New, Converted or Re-Newed RX: Transmitted to Pharmacy New Medications: Amlodipine Besylate (Amlodipine Besylate) 5 Mg Tablet 5 MG PO DAILY, #30 TAB Clindamycin HCl (Clindamycin HCl) 150 Mg Capsule 150 MG PO BID, #10 CAP Renally dosed Sodium Bicarbonate (Sodium Bicarbonate) 650 Mg Tablet 650 MG PO BID, #60 TAB Changed Medications: Furosemide (Furosemide) 20 Mg Tablet 40 MG PO BID for 10 Days, #40 TAB (Changed from: 20 MG) LAST FILLED 10-24-2019 #60/30 DAY SUPPLY Continued Medications: Albuterol Sulfate (Proair Hfa) 1 Puff Puff 2 PUFF IH Q4H PRN for WEAKNESS, #1 PUFF 1 PUFF = 90 MCG Aspirin (Aspir 81) 81 Mg Tablet.dr 81 MG PO DAILY, TAB Hydralazine HCl (Hydralazine HCl) 50 Mg Tablet 50 MG PO Q8H, TAB LAST FILLED 10-24-2019 #90/30 DAY SUPPLY Insulin Aspart (Novolog) 100 Unit/1 Ml Susp 0 SQ UD, EACH Insulin Glargine,Hum.rec.anlog (Toujeo Solostar) 300 Unit/1 Ml Insuln.pen 15 UNIT SQ DAILY, EA Metoprolol Succinate (Metoprolol Succinate) 100 Mg Tab.er.24h 100 MG PO TID, TAB Multivitamin (Daily Value) 1 Each Tablet 1 EACH PO DAILY, TAB Niacinamide (Niacin) 500 Mg Tablet 500 MG PO DAILY, TAB Norman 3 Polyunsat Fatty Acids (Fish Oil 1,000 mg Capsule) 1,000 Mg Cap 1000 MG PO DAILY, CAP Patient Instructions Goal/Follow Up Appt: Make sure to keep your appt tomorrow with your [employer] F.u [facility] with Dr Dez Wilson December 30 [facility] Activity & Diet Discharge Diet: Cardiac Diet Activity as Tolerated: Yes Copy Copies To 1: ISRAEL LLOYD MD, HOLLY R MD December 24, 2019 11:34
[2019-12-24 12:00] VITALS: BP 165/92
[2019-12-24] MEDS ORDERED: CLINDAMYCIN 150 MG (CLEOCIN) CAP PO SCH (12:00)
[2019-12-24 12:30] VITALS: BP 147/89
== END 2019-12-24 13:04 | disposition home or self-care (01) | DRG 699 ==
LOC: EDUNIT# 12:10 → ER 12:11 → 4TH 15:00 → ICU 17:06 → 4TH 12-21 13:16
PROVIDERS: ADMIT Internal Medicine; ATTEND Family Medicine
DX: E11.21 Type 2 diabetes mellitus with diabetic nephropathy (principal); N17.9 Acute kidney failure, unspecified; E11.22 Type 2 diabetes mellitus with diabetic chronic kidney disease; N18.4 Chronic kidney disease, stage 4 (severe); I11.0 Hypertensive heart disease with heart failure; I50.22 Chronic systolic (congestive) heart failure; R60.1 Generalized edema; D63.1 Anemia in chronic kidney disease; N25.89 Other disorders resulting from impaired renal tubular function; E87.5 Hyperkalemia; E87.70 Fluid overload, unspecified; E11.319 Type 2 diabetes mellitus with unspecified diabetic retinopathy without macular edema; E11.610 Type 2 diabetes mellitus with diabetic neuropathic arthropathy; M21.372 Foot drop, left foot; E11.40 Type 2 diabetes mellitus with diabetic neuropathy, unspecified; I27.20 Pulmonary hypertension, unspecified; K13.0 Diseases of lips; J45.909 Unspecified asthma, uncomplicated; N50.89 Other specified disorders of the male genital organs; E78.00 Pure hypercholesterolemia, unspecified; I08.1 Rheumatic disorders of both mitral and tricuspid valves; Z79.4 Long term (current) use of insulin; Z87.891 Personal history of nicotine dependence
CPT/HCPCS: 36415; 71045; 80048; 80053; 80061; 81000; 82010; 82962; 83735; 83880; 84100; 85025; 85027; 87070; 87075; 87077; 87186; 87205; 93005; 93306; 93308; 94760; 96374